=== PATIENT | male | born 1950 | race Caucasian/White ===

== ENCOUNTER 2017-07-06 11:49 | Observation (INO) | payer MEDICARE ==
[2017-07-06] MEDS ORDERED: ASPIRIN 81 MG PO STA (11:56)
[2017-07-06 12:29] LABS: Basophils # (A) 0.1 k/uL (0-0.2); Basophils % (A) 1 %; CH 32.4; CHCM 34.1; Eosinophils # (A) 0.1 k/uL (0-0.7); Eosinophils % (A) 1 %; HCT 48.4 % (39.0-53.0); HDW 2.43; HGB 16.1 gm/dL (13.0-17.5); Luc % (Auto) 1; Lymphocytes # (A) 1.1 k/uL (1.0-4.8); Lymphocytes % (A) 10 %; MCH 31.9 pg (25.0-35.0); MCHC 33.3 g/dL (31.0-37.0); MCV 95.7 fL (80.0-100.0); Mean Platelet Volume 8.1; Monocytes # (A) 0.4 k/uL (0-1.0); Monocytes % (A) 4 %; Neutrophils # (A) 8.5 k/uL (1.3-7.7); Neutrophils % (A) 83 %; RBC 5.06 m/uL (4.30-5.90); RDW 13.5 % (11.5-15.5); WBC 10.2 k/uL (3.8-10.6); WBC (Perox) 10.48
[2017-07-06 12:39] LABS: Anion Gap 10 mmol/L; Calcium 9.6 mg/dL (8.4-10.2); Carbon Dioxide 24 mmol/L (22-30); Chloride 101 mmol/L (98-107); Glucose 294 mg/dL (74-99); Non-African American GFR(MDRD) >60 (>60 ml/min/1.73 sqM); Sodium 135 mmol/L (137-145); Total Bilirubin 1.1 mg/dL (0.2-1.3); Total Protein 6.2 g/dL (6.3-8.2)
[2017-07-06 12:40] LABS: INR 1.2 (<1.2); Partial Thromboplastin Time 24.1 sec (22.0-30.0); Prothrombin Time 12.2 sec (9.0-12.0)
[2017-07-06 12:42] LABS: Blood Urea Nitrogen 13 mg/dL (9-20); Potassium 4.8 mmol/L (3.5-5.1)
[2017-07-06 12:43] LABS: ALT 51 U/L (21-72); AST 27 U/L (17-59); Alkaline Phosphatase 85 U/L (38-126); Magnesium 1.3 mg/dL (1.6-2.3)
--- NOTE | 2017-07-06 12:50 | XR ---
EXAMINATION TYPE: XR chest 2V DATE OF EXAM: 07/06/2017 COMPARISON: 04/02/2016 HISTORY: Shortness of breath TECHNIQUE: Frontal and lateral views of the chest are obtained. FINDINGS: Scattered senescent parenchymal changes noted. Hyperinflation compatible with COPD. No evidence for infiltrate. No evidence for atelectasis. Heart size is stable. Mediastinal structures are stable and grossly unremarkable. No evidence for hilar prominence. Degenerative changes dorsal spine. IMPRESSION: 1. No evidence for acute pulmonary disease.
[2017-07-06 13:13] LABS: Appearance,Urine Clear (Clear); Bilirubin,Urine Negative (Negative); Glucose,Urine (UA) 3+ (Negative); Ketones,Urine Negative (Negative); Leukocyte Esterase,Urine Negative (Negative); Nitrite,Urine Negative (Negative); PH, Urine 5.5 (5.0-8.0); Protein,Urine Negative (Negative); Specific Gravity,Urine 1.007 (1.001-1.035); UA Billing (MACRO vs. MICRO) CHEM; Urobilinogen,Urine <2.0 mg/dL (<2.0)
[2017-07-06] MEDS ORDERED: TEMAZEPAM 15 MG CAP PO PRN (13:29)
[2017-07-06] MEDS ORDERED: NALOXONE 0.4 MG/ML 1 ML VIAL IV PRN (13:29)
[2017-07-06] MEDS ORDERED: ONDANSETRON 4 MG/2 ML VIAL IVP PRN (13:29)
[2017-07-06] MEDS ORDERED: MORPHINE SULFATE 10 MG/ML SYRINGE IV PRN (13:29)
--- NOTE | 2017-07-06 13:29 | ED ---
Chest Pain HPI - General Chief Complaint: Chest Pain Stated Complaint: Chest Pain Time Seen by Provider: 07/06/17 11:51 Source: patient Mode of arrival: EMS Limitations: no limitations - History of Present Illness Initial Comments: Patient complains of chest pressure, nausea, diaphoresis. His symptoms began within the last hour. He has no vomiting. He has no constipation or diarrhea. He has no lightheadedness or dizziness. He has no pain or swelling in the extremities. He has no palpitations. He was not doing anything when the symptoms began. He took no medication for this. He denies any neck pain or stiffness. He has had no injuries. - Related Data Home Medications Medication Instructions Recorded Confirmed Atenolol 25 mg PO DAILY 04/02/16 07/06/17 Doxazosin [Cardura] 2 mg PO HS 04/02/16 07/06/17 Enalapril [Vasotec] 2.5 mg PO DAILY 04/02/16 07/06/17 Ergocalciferol (Vitamin D2) 50,000 unit PO FR 04/02/16 07/06/17 [Drisdol] Isosorbide Mononitrate ER [Imdur] 60 mg PO DAILY 04/02/16 07/06/17 Propafenone [Rythmol] 150 mg PO TID 04/02/16 07/06/17 Warfarin [Coumadin] 7.5 mg PO HS 04/02/16 07/06/17 metFORMIN HCL [Glucophage] 500 mg PO BID 04/02/16 07/06/17 rOPINIRole HCL [Requip] 1 mg PO HS 04/02/16 07/06/17 Aspirin EC [Ecotrin Low Dose] 81 mg PO DAILY 07/06/17 07/06/17 HYDROcodone/APAP 10-325MG [[place] 1 tab PO Q8H PRN 07/06/17 07/06/17 10-325] Triamcinolone 0.5% Cream [Kenalog 1 applic TOPICAL BID 07/06/17 07/06/17 0.5% Cream] Previous Rx's Medication Instructions Recorded Atorvastatin [Lipitor] 40 mg PO HS #90 tab 04/05/16 Allergies Allergy/AdvReac Type Severity Reaction Status Date / Time hydromorphone HCl AdvReac Hallucinati Verified 07/06/17 12:08 [From Dilaudid] ons Review of Systems ROS Statement: Those systems with pertinent positive or pertinent negative responses have been documented in the HPI. ROS Other: All systems not noted in ROS Statement are negative. EKG Findings - EKG Comments: EKG Findings:: Twelve-lead EKG is interpreted by me showing ventricular rate 51 bpm, normal MA interval and QRS complexes, no ST elevation or depression, interpreted by me as normal sinus rhythm. Past Medical History Past Medical History: Atrial Fibrillation, CVA/TIA, Diabetes Mellitus, Hyperlipidemia, Hypertension Additional Past Medical History / Comment(s): NIDDM History of Any Multi-Drug Resistant Organisms: None Reported Past Surgical History: No Surgical Hx Reported Additional Past Surgical History / Comment(s): 2009 normal heart cath, EGD/ colonoscopy, R lower eyelid sx, R cataract removal, R foot bunionectomy. Past Anesthesia/Blood Transfusion Reactions: No Reported Reaction Past Psychological History: No Psychological Hx Reported Smoking Status: Current every day smoker Past Alcohol Use History: Occasional Past Drug Use History: None Reported - Past Family History Mother Family Medical History: Diabetes Mellitus Additional Family Medical History / Comment(s): Mother haad heart problems. Father History Unknown: Yes General Exam Limitations: no limitations General appearance: alert, in no apparent distress Head exam: Present: atraumatic, normocephalic, normal inspection Eye exam: Present: normal appearance, PERRL, EOMI. Absent: scleral icterus, conjunctival injection, periorbital swelling ENT exam: Present: normal exam, mucous membranes moist Neck exam: Present: normal inspection. Absent: tenderness, meningismus, lymphadenopathy Respiratory exam: Present: normal lung sounds bilaterally. Absent: respiratory distress, wheezes, rales, rhonchi, stridor Cardiovascular Exam: Present: regular rate, normal rhythm, normal heart sounds. Absent: systolic murmur, diastolic murmur, rubs, gallop, clicks GI/Abdominal exam: Present: soft, normal bowel sounds. Absent: distended, tenderness, guarding, rebound, rigid Extremities exam: Present: normal inspection, full ROM, normal capillary refill. Absent: tenderness, pedal edema, joint swelling, calf tenderness Back exam: Present: normal inspection Neurological exam: Present: alert, oriented X3, CN II-XII intact Psychiatric exam: Present: normal affect, normal mood Skin exam: Present: warm, dry, intact, normal color. Absent: rash Course Vital Signs 07/06/17 07/06/17 11:52 13:16 Temperature 97.1 F L Pulse Rate 51 L 53 L Respiratory 18 18 Rate Blood Pressure 167/87 127/73 O2 Sat by Pulse 98 95 Oximetry Chest Pain MDM - MDM Patient complains of chest pain. He is hyperglycemic, but his troponin is negative. His EKG does not reveal acute ischemia. He will be admitted to the hospital. Disposition Clinical Impression: Chest pain Disposition: ADMITTED IP TO THIS HOSP Condition: Fair Instructions: Chest Pain (ED) Referrals: Andrew Walker MD [Primary Care Provider] - 1-2 days Time of Disposition: 13:29
[2017-07-06 13:51] LABS: Glucose,Whole Blood 266 mg/dL (75-99)
[2017-07-06] MEDS ORDERED: Magnesium Replacement Protocol 1 EACH MISC MISCELLANE PRN (14:36)
--- NOTE | 2017-07-06 15:04 | P.CRDCN ---
History of Present Illness History of present illness: This is a pleasant 66-year-old male who follows with Dr. Mendoza as an outpatient. 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 He underwent cardiac catheterization in 03/2016 which revealed LAD 20%, left circumflex 10-20%, RCA 10-20% disease. At that time lifestyle modifications and maximum medical therapy was recommended. He recently quit smoking 3 months ago. He was scheduled to undergo minor eye procedure today and was NPO since midnight last night and his coumadin has been on hold. He states he was up multiple times over the night urinating. Around 0700 he finally got up for the day and was sitting down when he became acute diaphoretic and developed chest pain and shortness of breath. He states he felt like his heart was in an abnormal rhythm at that time as well. He denies radiation of the pain to any extremity or neck/jaw. He does however recall having very non-specific upper jaw/gum pain last night with no specific aggravating factors. His episode of chest pain lasted approximately 1-hr. It persisted until he came to the ED. At the time of my exam he is sitting comfortably up in bed in no acute distress. Chest pain and all symptoms have resolved. EKG reveals sinus mechanism with no acute ST or T-wave abnormalities. Chest xray reveals no acute cardiopulmonary process. Cardiac enzymes negative x1, INR 1.2, potassium 4.8, magnesium 1.3, BUN 13, Cr 0.8. Blood sugars have been elevated despite being NPO. Blood pressure 136/79 heart rate 54. Most recent echocardiogram 03/[address], mild LVH, mild MR, mild TR and preserved LV systolic function with EF 55-60%. He has not had a recent stress test since his catheterization. Current cardiac medications include coumadin 7.5 mg daily, rythmol 150 mg TID, imdur 60 mg daily, enalapril 2.5 mg daily, doxazosin 2 mg daily, atorvastatin 40 mg daily, atenolol 25 mg daily and aspirin 81 mg daily. He states he is compliant with all of his medications as they are prescribed. Review of Systems CONSTITUTIONAL: Denies fever. Complains of episode of acute diaphoresis and chills. EYES: Denies blurred vision. Denies vision changes. Denies eye pain. EARS, NOSE, MOUTH & THROAT: Denies headache. Denies sore throat. Denies ear pain. CARDIOVASCULAR: Complains of one episode of chest pain lasting one hour. Denies shortness of breath. Denies orthopnea. Denies PND. Complains of one episode palpitations. RESPIRATORY: Denies cough. GASTROINTESTINAL: Denies abdominal pain. Denies diarrhea. Denies constipation. Denies nausea. Denies vomitng. MUSCULOSKELETAL: Denies myalgias. INTEGUMENTARY: Denies pruitis. Denies rash. NEUROLOGIC: Denies numbness. Denies tingling. Denies weakness. PSYCHIATRIC: Denies anxiety. Denies depression. ENDOCRINE: Denies fatigue. Denies weight change. Denies polydipsia. Denies polyurina. GENITOURINARY: Denies burning, hematuria or urgency with micturation. HEMATOLOGIC: Denies history of anemia. Denies bleeding. Past Medical History Past Medical History: Atrial Fibrillation, CVA/TIA, Diabetes Mellitus, Hyperlipidemia, Hypertension Additional Past Medical History / Comment(s): NIDDM History of Any Multi-Drug Resistant Organisms: None Reported Past Surgical History: No Surgical Hx Reported Additional Past Surgical History / Comment(s): 2008 normal heart cath, EGD/ colonoscopy, R lower eyelid sx, R cataract removal, R foot bunionectomy. Past Anesthesia/Blood Transfusion Reactions: No Reported Reaction Past Psychological History: No Psychological Hx Reported Smoking Status: Current every day smoker Past Alcohol Use History: Occasional Past Drug Use History: None Reported - Past Family History Mother Family Medical History: Diabetes Mellitus Additional Family Medical History / Comment(s): Mother haad heart problems. Father History Unknown: Yes Medications and Allergies Home Medications Medication Instructions Recorded Confirmed Type Atenolol 25 mg PO DAILY 04/02/16 07/06/17 History Doxazosin [Cardura] 2 mg PO HS 04/02/16 07/06/17 History Enalapril [Vasotec] 2.5 mg PO DAILY 04/02/16 07/06/17 History Ergocalciferol (Vitamin D2) 50,000 unit PO FR 04/02/16 07/06/17 History [Drisdol] Isosorbide Mononitrate ER [Imdur] 60 mg PO DAILY 04/02/16 07/06/17 History Propafenone [Rythmol] 150 mg PO TID 04/02/16 07/06/17 History Warfarin [Coumadin] 7.5 mg PO HS 04/02/16 07/06/17 History metFORMIN HCL [Glucophage] 500 mg PO BID 04/02/16 07/06/17 History rOPINIRole HCL [Requip] 1 mg PO HS 04/02/16 07/06/17 History Atorvastatin [Lipitor] 40 mg PO HS #90 tab 04/05/16 07/06/17 Rx Aspirin EC [Ecotrin Low Dose] 81 mg PO DAILY 07/06/17 07/06/17 History HYDROcodone/APAP 10-325MG [[place] 1 tab PO Q8H PRN 07/06/17 07/06/17 History 10-325] Omeprazole Magnesium [Prilosec OTC] 20 mg PO DAILY 07/06/17 07/06/17 History Triamcinolone 0.5% Cream [Kenalog 1 applic TOPICAL BID 07/06/17 07/06/17 History 0.5% Cream] Allergies Allergy/AdvReac Type Severity Reaction Status Date / Time hydromorphone HCl AdvReac Hallucinati Verified 07/06/17 12:08 [From Dilaudid] ons Physical Exam Vitals: Vital Signs Temp Pulse Pulse Resp BP BP Pulse Ox 07/06/17 14:32 97.3 F L 54 L 18 136/79 95 07/06/17 13:47 98 F 55 L 18 119/72 96 07/06/17 13:16 53 L 18 127/73 95 07/06/17 11:52 97.1 F L 51 L 18 167/87 98 Intake and Output 07/05/17 07/06/17 07/06/17 22:59 06:59 14:59 Other: Weight 101.8 kg Patient Weight 07/07/17 06:59 Weight 101.8 kg GENERAL: This is a 66-year-old pleasant male in no apparent distress at the time of my examination. HEENT: Head is atraumatic, normocephalic. Pupils are equal, round. Sclerae anicteric. Conjunctivae are clear. Mucous membranes of the mouth are moist. Neck is supple. There is no jugular venous distention. No carotid bruit is heard. LUNGS: Clear to auscultation no wheezes, rales or rhonchi. No chest wall tenderness is noted on palpation or with deep breathing. HEART: Regular rate and rhythm with systolic ejection murmur at the base, no rubs or gallops. S1 and S2 heard. ABDOMEN: Soft, nontender. Bowel sounds are heard. No organomegaly noted. EXTREMITIES: 2+ peripheral pulses with trace evidence of pitting peripheral edema right greater than left and no calf tenderness noted. NEUROLOGIC: Patient is awake, alert and oriented x3. Results 07/06/17 12:10 07/06/17 12:10 Cardiac Enzymes 07/06/17 07/06/17 07/06/17 Range/Units 12:10 12:10 12:10 WBC 10.2 (3.8-10.6) k/uL RBC 5.06 (4.30-5.90) m/uL Hgb 16.1 (13.0-17.5) gm/dL Hct 48.4 (39.0-53.0) % MCV 95.7 (80.0-100.0) fL MCH 31.9 (25.0-35.0) pg MCHC 33.3 (31.0-37.0) g/dL RDW 13.5 (11.5-15.5) % Plt Count 165 (150-450) k/uL Neutrophils % 83 % Lymphocytes % 10 % Monocytes % 4 % Eosinophils % 1 % Basophils % 1 % Neutrophils # 8.5 H (1.3-7.7) k/uL Lymphocytes # 1.1 (1.0-4.8) k/uL Monocytes # 0.4 (0-1.0) k/uL Eosinophils # 0.1 (0-0.7) k/uL Basophils # 0.1 (0-0.2) k/uL PT 12.2 H (9.0-12.0) sec INR 1.2 H (<1.2) APTT 24.1 (22.0-30.0) sec Sodium 135 L (137-145) mmol/L Potassium 4.8 (3.5-5.1) mmol/L Chloride 101 (98-107) mmol/L Carbon Dioxide 24 (22-30) mmol/L Anion Gap 10 mmol/L BUN 13 (9-20) mg/dL Creatinine 0.80 (0.66-1.25) mg/dL Est GFR (MDRD) Af Amer >60 (>60 ml/min/1.73 sqM) Est GFR (MDRD) Non-Af >60 (>60 ml/min/1.73 sqM) Glucose 294 H (74-99) mg/dL POC Glucose (mg/dL) (75-99) mg/dL POC Glu Devulcanizer Loader ID Calcium 9.6 (8.4-10.2) mg/dL Magnesium 1.3 L (1.6-2.3) mg/dL Total Bilirubin 1.1 (0.2-1.3) mg/dL AST 27 (17-59) U/L ALT 51 (21-72) U/L Alkaline Phosphatase 85 (38-126) U/L Troponin I (0.000-0.034) ng/mL NT-Pro-B Natriuret Pep pg/mL Total Protein 6.2 L (6.3-8.2) g/dL Albumin 3.8 (3.5-5.0) g/dL Lipase 259 (23-300) U/L Urine Color Urine Appearance (Clear) Urine pH (5.0-8.0) Ur Specific [place] (1.001-1.035) Urine Protein (Negative) Urine Glucose (UA) (Negative) Urine Ketones (Negative) Urine Blood (Negative) Urine Nitrite (Negative) Urine Bilirubin (Negative) Urine Urobilinogen (<2.0) mg/dL Ur Leukocyte Esterase (Negative) 07/06/17 07/06/17 07/06/17 Range/Units 12:10 12:10 12:55 WBC (3.8-10.6) k/uL RBC (4.30-5.90) m/uL Hgb (13.0-17.5) gm/dL Hct (39.0-53.0) % MCV (80.0-100.0) fL MCH (25.0-35.0) pg MCHC (31.0-37.0) g/dL RDW (11.5-15.5) % Plt Count (150-450) k/uL Neutrophils % % Lymphocytes % % Monocytes % % Eosinophils % % Basophils % % Neutrophils # (1.3-7.7) k/uL Lymphocytes # (1.0-4.8) k/uL Monocytes # (0-1.0) k/uL Eosinophils # (0-0.7) k/uL Basophils # (0-0.2) k/uL PT (9.0-12.0) sec INR (<1.2) APTT (22.0-30.0) sec Sodium (137-145) mmol/L Potassium (3.5-5.1) mmol/L Chloride (98-107) mmol/L Carbon Dioxide (22-30) mmol/L Anion Gap mmol/L BUN (9-20) mg/dL Creatinine (0.66-1.25) mg/dL Est GFR (MDRD) Af Amer (>60 ml/min/1.73 sqM) Est GFR (MDRD) Non-Af (>60 ml/min/1.73 sqM) Glucose (74-99) mg/dL POC Glucose (mg/dL) (75-99) mg/dL POC Glu Devulcanizer Loader ID Calcium (8.4-10.2) mg/dL Magnesium (1.6-2.3) mg/dL Total Bilirubin (0.2-1.3) mg/dL AST (17-59) U/L ALT (21-72) U/L Alkaline Phosphatase (38-126) U/L Troponin I <0.012 (0.000-0.034) ng/mL NT-Pro-B Natriuret Pep 762 pg/mL Total Protein (6.3-8.2) g/dL Albumin (3.5-5.0) g/dL Lipase (23-300) U/L Urine Color Yellow Urine Appearance Clear (Clear) Urine pH 5.5 (5.0-8.0) Ur Specific [place] 1.007 (1.001-1.035) Urine Protein Negative (Negative) Urine Glucose (UA) 3+ H (Negative) Urine Ketones Negative (Negative) Urine Blood Negative (Negative) Urine Nitrite Negative (Negative) Urine Bilirubin Negative (Negative) Urine Urobilinogen <2.0 (<2.0) mg/dL Ur Leukocyte Esterase Negative (Negative) 07/06/17 Range/Units 13:46 WBC (3.8-10.6) k/uL RBC (4.30-5.90) m/uL Hgb (13.0-17.5) gm/dL Hct (39.0-53.0) % MCV (80.0-100.0) fL MCH (25.0-35.0) pg MCHC (31.0-37.0) g/dL RDW (11.5-15.5) % Plt Count (150-450) k/uL Neutrophils % % Lymphocytes % % Monocytes % % Eosinophils % % Basophils % % Neutrophils # (1.3-7.7) k/uL Lymphocytes # (1.0-4.8) k/uL Monocytes # (0-1.0) k/uL Eosinophils # (0-0.7) k/uL Basophils # (0-0.2) k/uL PT (9.0-12.0) sec INR (<1.2) APTT (22.0-30.0) sec Sodium (137-145) mmol/L Potassium (3.5-5.1) mmol/L Chloride (98-107) mmol/L Carbon Dioxide (22-30) mmol/L Anion Gap mmol/L BUN (9-20) mg/dL Creatinine (0.66-1.25) mg/dL Est GFR (MDRD) Af Amer (>60 ml/min/1.73 sqM) Est GFR (MDRD) Non-Af (>60 ml/min/1.73 sqM) Glucose (74-99) mg/dL POC Glucose (mg/dL) 266 H (75-99) mg/dL POC Glu Devulcanizer Loader ID John Ramos Calcium (8.4-10.2) mg/dL Magnesium (1.6-2.3) mg/dL Total Bilirubin (0.2-1.3) mg/dL AST (17-59) U/L ALT (21-72) U/L Alkaline Phosphatase (38-126) U/L Troponin I (0.000-0.034) ng/mL NT-Pro-B Natriuret Pep pg/mL Total Protein (6.3-8.2) g/dL Albumin (3.5-5.0) g/dL Lipase (23-300) U/L Urine Color Urine Appearance (Clear) Urine pH (5.0-8.0) Ur Specific [place] (1.001-1.035) Urine Protein (Negative) Urine Glucose (UA) (Negative) Urine Ketones (Negative) Urine Blood (Negative) Urine Nitrite (Negative) Urine Bilirubin (Negative) Urine Urobilinogen (<2.0) mg/dL Ur Leukocyte Esterase (Negative) Coagulation 07/06/17 Range/Units 12:10 PT 12.2 H (9.0-12.0) sec APTT 24.1 (22.0-30.0) sec CBC 07/06/17 Range/Units 12:10 WBC 10.2 (3.8-10.6) k/uL RBC 5.06 (4.30-5.90) m/uL Hgb 16.1 (13.0-17.5) gm/dL Hct 48.4 (39.0-53.0) % Plt Count 165 (150-450) k/uL Comprehensive Metabolic Panel 07/06/17 Range/Units 12:10 Sodium 135 L (137-145) mmol/L Potassium 4.8 (3.5-5.1) mmol/L Chloride 101 (98-107) mmol/L Carbon Dioxide 24 (22-30) mmol/L BUN 13 (9-20) mg/dL Creatinine 0.80 (0.66-1.25) mg/dL Glucose 294 H (74-99) mg/dL Calcium 9.6 (8.4-10.2) mg/dL AST 27 (17-59) U/L ALT 51 (21-72) U/L Alkaline Phosphatase 85 (38-126) U/L Total Protein 6.2 L (6.3-8.2) g/dL Albumin 3.8 (3.5-5.0) g/dL Current Medications Generic Name Dose Route Start Last Admin Trade Name Freq PRN Reason Stop Dose Admin Hydrocodone Bitart/Acetaminophen 1 each 07/06/17 13:31 [place] 10 PO Q8H PRN Pain Aspirin 81 mg 07/07/17 09:00 Aspirin PO DAILY [facility] Atenolol 25 mg 07/07/17 09:00 Tenormin PO DAILY [facility] Atorvastatin Calcium 40 mg 07/06/17 21:00 Lipitor PO HS RODRIGUE Doxazosin Mesylate 2 mg 07/06/17 21:00 Cardura PO HS RODRIGUE Famotidine 20 mg 07/06/17 21:00 Pepcid PO BID RODRIGUE Magnesium Sulfate/Dextrose 1 100 mls @ 100 mls/hr 07/06/17 14:45 gm/ IV Solution IVPB 07/06/17 17:44 Q1H [facility]ODRIGUE Isosorbide Mononitrate 60 mg 07/07/17 09:00 Imdur PO DAILY RODR[facility]UE Lisinopril 5 mg 07/07/17 09:00 Zestril PO DAILY RODRIG[facility] Metformin HCl 500 mg 07/06/17 21:00 Glucophage PO BID RODRIGUE Miscellaneous Information 1 each 07/06/17 14:36 Magnesium Per Protocol MISCELLANE DAILY PRN Per Protocol Protocol Morphine Sulfate 4 mg 07/06/17 13:29 Morphine Sulfate (Inj) IV Q4HR PRN Severe Pain Naloxone HCl 0.2 mg 07/06/17 13:29 Narcan IV Q2M PRN Opioid Reversal Ondansetron HCl 4 mg 07/06/17 13:29 Zofran IVP Q8HR PRN Nausea And Vomiting Propafenone HCl 150 mg 07/06/17 16:00 Rythmol PO TID RODRIGUE Ropinirole HCl 1 mg 07/06/17 21:00 Requip PO HS RODRIGUE Temazepam 15 mg 07/06/17 13:29 Restoril PO HS PRN Insomnia Warfarin Sodium 7.5 mg 07/06/17 21:00 Coumadin PO HS RODRIGUE Intake and Output 07/05/17 07/06/17 07/06/17 22:59 06:59 14:59 Other: Weight 101.8 kg Patient Weight 07/07/17 06:59 Weight 101.8 kg 07/06/17 12:10 07/06/17 12:10 Assessment and Plan Assessment: ASSESSMENT 1. Chest pain, atypical 2. Essential hypertension 3. History of paroxysmal atrial fibrillation on long-term anticoagulation 4. Dyslipidemia 5. History of mild triple vessel CAD 6. Former smoker, quit 3 months ago 7. Diabetes mellitus PLAN Obtain 2D echocardiogram and doppler study to evaluate cardiac structure and function; Obtain serial cardiac enzymes along with repeat EKG to rule out acute coronary event; Replace magnesium per protocol and repeat level in the morning; Check lipid panel, INR and thyroid function; Continue cardiac monitoring to assess for arrhythmia; NPO after midnight to evaluate for possible stress testing in the am. Thank you for this consultation, we will continue to follow with this patient. Nurse Practitioner note has been reviewed, I agree with a documented findings and plan of care. Patient was seen and examined. Time with Patient: Greater than 30
[2017-07-06] MEDS: MAGNESIUM SULFATE-D5W PMX 1 GM in DEXTROSE/WATER 1 100ML.BAG IVPB SCH ×3 (15:45→18:01)
[2017-07-06] MEDS: PROPAFENONE 150 MG TAB PO SCH ×2 (16:45→20:51)
[2017-07-06 16:59] LABS: Glucose,Whole Blood 264 mg/dL (75-99)
[2017-07-06 20:47] LABS: Glucose,Whole Blood 217 mg/dL (75-99)
[2017-07-06] MEDS: INSULIN LISPRO (humaLOG) 300 UNIT/3 ML VIAL SQ SCH (20:50)
[2017-07-06] MEDS: FAMOTIDINE 20 MG TAB PO SCH (20:51)
[2017-07-06] MEDS ORDERED: metFORMIN 500 MG TAB PO SCH (21:00)
[2017-07-06] MEDS ORDERED: ATORVASTATIN 40 MG TAB PO SCH (21:00)
[2017-07-06] MEDS ORDERED: WARFARIN 7.5 MG TAB PO SCH (21:00)
[2017-07-06] MEDS ORDERED: DOXAZOSIN 2 MG TAB PO SCH (21:00)
[2017-07-06] MEDS: HYDROcodone/APAP 10-325MG 1 EACH TAB PO PRN (21:06)
[2017-07-07 05:53] LABS: INR 1.2 (<1.2); Prothrombin Time 11.9 sec (9.0-12.0)
[2017-07-07 06:03] LABS: Magnesium 1.9 mg/dL (1.6-2.3)
[2017-07-07 06:48] LABS: Glucose,Whole Blood 194 mg/dL (75-99)
[2017-07-07] MEDS: INSULIN LISPRO (humaLOG) 300 UNIT/3 ML VIAL SQ SCH ×2 (08:04→12:21)
[2017-07-07 08:06] VITALS: RESP 18
--- NOTE | 2017-07-07 08:45 | ECHOF ---
Referral Reason:chest pain MEASUREMENTS -------- HEIGHT: 157.5 cm WEIGHT: 101.6 kg BP: 130/50 RVIDd: 2.5 cm (< 3.3) IVSd: 1.2 cm (0.6 - 1.1) LVIDd: 4.8 cm (3.9 - 5.3) LVPWd: 0.9 cm (0.6 - 1.1) IVSs: 1.5 cm LVIDs: 4.2 cm LVPWs: 0.9 cm LA Diam: 3.6 cm (2.7 - 3.8) LAESV Index (A-L): 27.17 ml/m Ao Diam: 3.0 cm (2.0 - 3.7) AV Cusp: 1.7 cm (1.5 - 2.6) LA Diam: 3.6 cm (2.7 - 3.8) MV EXCURSION: 15.271 mm (> 18.000) MV EF SLOPE: 39 mm/s (70 - 150) EPSS: 0.7 cm MV E Otis: 0.44 m/s MV DecT: 224 ms MV A Otis: 0.60 m/s MV E/A Ratio: 0.74 RAP: 5.00 mmHg RVSP: 11.93 mmHg FINDINGS -------- Sinus rhythm. This was a technically adequate study. The left ventricular size is normal. There is mild concentric left ventricular hypertrophy. Overall left ventricular systolic function is normal with, an EF between 55 - 60 %. The right ventricle is normal in size. Normal LA size by volume 22+/-6 ml/m2. The right atrial size is normal. The aortic valve is trileaflet, and appears structurally normal. No aortic stenosis or regurgitation. Mild mitral regurgitation is present. Mild tricuspid regurgitation present. There is no evidence of pulmonary hypertension. The right ventricular systolic pressure, as measured by Doppler, is 11.93mmHg. There is no pulmonic regurgitation present. The aortic root size is normal. There is no pericardial effusion. CONCLUSIONS -------- 1. The left ventricular size is normal. 2. The aortic root size is normal. 3. There is no pericardial effusion. 4. There is mild concentric left ventricular hypertrophy. 5. Overall left ventricular systolic function is normal with, an EF between 55 - 60 %. 6. The aortic valve is trileaflet, and appears structurally normal. No aortic stenosis or regurgitation. 7. Mild mitral regurgitation is present. 8. Mild tricuspid regurgitation present. 9. There is no evidence of pulmonary hypertension. 10. The right ventricular systolic pressure, as measured by Doppler, is 11.93mmHg. 11. There is no pulmonic regurgitation present. [employer] MANAGER: Lety Tipton RDCS
[2017-07-07] MEDS ORDERED: ISOSORBIDE MONONITRATE ER 60 MG TAB.ER.24H PO SCH (09:00)
[2017-07-07] MEDS ORDERED: LISINOPRIL 5 MG TAB PO SCH (09:00)
[2017-07-07] MEDS ORDERED: ATENOLOL 25 MG TAB PO SCH (09:00)
[2017-07-07] MEDS ORDERED: ASPIRIN 81 MG PO SCH (09:00)
[2017-07-07] MEDS: HYDROcodone/APAP 10-325MG 1 EACH TAB PO PRN (10:42)
[2017-07-07] MEDS: PROPAFENONE 150 MG TAB PO SCH (10:44)
[2017-07-07] MEDS: FAMOTIDINE 20 MG TAB PO SCH (10:44)
--- NOTE | 2017-07-07 10:47 | P.PN ---
Subjective Progress Note Date: 07/07/17 This is a pleasant 66-year-old male who follows with Dr. Mendoza as an outpatient. Past medical history significant for paroxysmal atrial fibrillation on custodial anticoagulation with coumadin, hypertension, diabetes mellitus, dysplipidemia and chronic CAD. He underwent cardiac catheterization in 03/2016 which revealed LAD 20%, left circumflex 10-20%, RCA 10-20% disease. At that time lifestyle modifications and maximum medical therapy was recommended. He recently quit smoking 3 months ago. He was scheduled to undergo minor eye procedure today and was NPO since midnight last night and his coumadin has been on hold. He states he was up multiple times over the night urinating. Around 0700 he finally got up for the day and was sitting down when he became acute diaphoretic and developed chest pain and shortness of breath. He states he felt like his heart was in an abnormal rhythm at that time as well. He denies radiation of the pain to any extremity or neck/jaw. He does however recall having very non-specific upper jaw/gum pain last night with no specific aggravating factors. His episode of chest pain lasted approximately 1-hr. It persisted until he came to the ED. At the time of my exam he is sitting comfortably up in bed in no acute distress. Chest pain and all symptoms have resolved. EKG reveals sinus mechanism with no acute ST or T-wave abnormalities. Chest xray reveals no acute cardiopulmonary process. Cardiac enzymes negative x1, INR 1.2, potassium 4.8, magnesium 1.3, BUN 13, Cr 0.8. Blood sugars have been elevated despite being NPO. Blood pressure 136/79 heart rate 54. Most recent echocardiogram 03/2016 revealed mild AR, mild LVH, mild MR, mild TR and preserved LV systolic function with EF 55-60%. He has not had a recent stress test since his catheterization. Current cardiac medications include coumadin 7.5 mg daily, rythmol 150 mg TID, imdur 60 mg daily, enalapril 2.5 mg daily, doxazosin 2 mg daily, atorvastatin 40 mg daily, atenolol 25 mg daily and aspirin 81 mg daily. He states he is compliant with all of his medications as they are prescribed. 07/07/2017 Mr Vázquez is seen today in follow-up. He is seen resting comfortably in bed in no acute distress. He denies any further episodes of chest pain or shortness of breath. He states his lower back is irritating but this is chronic. He states he has been up urinating again frequently all night last night. Cardiac enzymes have come back negative x3. Magnesium level 1.9, INR 1.2. Objective - Vital Signs Vital signs: Vital Signs Temp 98.4 F 07/07/17 08:00 Pulse 63 07/07/17 08:00 Resp 18 07/07/17 08:00 BP 136/86 07/07/17 08:00 Pulse Ox 95 07/07/17 08:00 Intake & Output 07/06/17 07/07/17 07/07/17 18:59 06:59 18:59 Intake Total 240 Balance 240 Weight 101.8 kg Intake: Oral 240 Other: Voiding Method Toilet Toilet Toilet # Voids 1 - Exam GENERAL: Well-appearing, well-nourished and in no acute distress. NECK: Supple without JVD or thyromegaly. LUNGS: Breath sounds clear to auscultation bilaterally. Respiration equal and unlabored. No wheezes, rales or rhonchi. HEART: Regular rate and rhythm with systolic ejection murmur at the base, no rubs or gallops. S1 and S2 heard. EXTREMITIES: Normal range of motion, no edema. No clubbing or cyanosis. Peripheral pulses intact and strong. - Labs CBC & Chem 7: 07/06/17 12:10 07/06/17 12:10 Labs: Abnormal Lab Results - Last 24 Hours (Table) 07/06/17 07/06/17 07/06/17 Range/Units 12:10 12:10 12:10 Neutrophils # 8.5 H (1.3-7.7) k/uL PT 12.2 H (9.0-12.0) sec INR 1.2 H (<1.2) Sodium 135 L (137-145) mmol/L Glucose 294 H (74-99) mg/dL POC Glucose (mg/dL) (75-99) mg/dL Hemoglobin A1c (4.0-6.0) % Magnesium 1.3 L (1.6-2.3) mg/dL Total Protein 6.2 L (6.3-8.2) g/dL HDL Cholesterol (40-60) mg/dL Urine Glucose (UA) (Negative) 07/06/17 07/06/17 07/06/17 Range/Units 12:55 13:46 16:56 Neutrophils # (1.3-7.7) k/uL PT (9.0-12.0) sec INR (<1.2) Sodium (137-145) mmol/L Glucose (74-99) mg/dL POC Glucose (mg/dL) 266 H 264 H (75-99) mg/dL Hemoglobin A1c (4.0-6.0) % Magnesium (1.6-2.3) mg/dL Total Protein (6.3-8.2) g/dL HDL Cholesterol (40-60) mg/dL Urine Glucose (UA) 3+ H (Negative) 07/06/17 07/06/17 07/07/17 Range/Units 18:29 20:44 05:34 Neutrophils # (1.3-7.7) k/uL PT (9.0-12.0) sec INR (<1.2) Sodium (137-145) mmol/L Glucose (74-99) mg/dL POC Glucose (mg/dL) 217 H (75-99) mg/dL Hemoglobin A1c 7.9 H (4.0-6.0) % Magnesium (1.6-2.3) mg/dL Total Protein (6.3-8.2) g/dL HDL Cholesterol 34 L (40-60) mg/dL Urine Glucose (UA) (Negative) 07/07/17 07/07/17 Range/Units 05:34 06:37 Neutrophils # (1.3-7.7) k/uL PT (9.0-12.0) sec INR 1.2 H (<1.2) Sodium (137-145) mmol/L Glucose (74-99) mg/dL POC Glucose (mg/dL) 194 H (75-99) mg/dL Hemoglobin A1c (4.0-6.0) % Magnesium (1.6-2.3) mg/dL Total Protein (6.3-8.2) g/dL HDL Cholesterol (40-60) mg/dL Urine Glucose (UA) (Negative) Assessment and Plan Assessment: ASSESSMENT 1. Chest pain, atypical 2. Essential hypertension 3. History of paroxysmal atrial fibrillation on long-term anticoagulation 4. Dyslipidemia 5. History of mild triple vessel CAD 6. Former smoker, quit 3 months ago 7. Diabetes mellitus 8. Sub-therapeutic INR secondary to holding for eye surgery PLAN From cardiac perspective Mr Vázquez is stable for discharge home with minimal disease noted last year it is unlikely to have had significant increase in 1- year. He should follow up with Dr. Mendoza in 2 weeks. Risks vs benefits of stopping anticoagulation have been discussed with the patient and his risk of stroke has been verbalized. Nurse Practitioner note has been reviewed, I agree with a documented findings and plan of care. Patient was seen and examined.
[2017-07-07 12:00] VITALS: BP 143/87; PULSE 57; TEMP 98
[2017-07-07 12:13] LABS: Glucose,Whole Blood 378 mg/dL (75-99)
--- NOTE | 2017-07-07 12:54 | P.HPIM ---
History of Present Illness H&P Date: 07/07/17 Chief Complaint: Chest pain This is a 66-year-old male with a known history of atrial fibrillation on Coumadin, hypertension, diabetes mellitus, hyperlipidemia and coronary artery disease. He did quit smoking about 2 months ago. Patient reports that he had not been feeling well yesterday. He reports being very sweaty having some episodes of chest discomfort. He came into Dr. Walker's office for evaluation of is recommended to go to the hospital and be admitted. Patient also reports that pain the chest pain was more in the left side of his chest radiating up into the jaw. Troponins were negative 3 sets. EKG had shown sinus bradycardia with a heart rate of 51 and a left anterior fascicular block. Chest x-ray was negative. Echo completed showing an EF of 55-60%. Patient was admitted to the observation floor. Cardiology was consulted. There is discussion about a possible stress test. His last heart catheterization was in March 2016 with evidence of some coronary disease but had recommended lifestyle modifications and maximum medical therapy. Coumadin has recently been on hold for an eye surgery. Patient reports that he is feeling better. He has been up and ambulating. Cardiology has now cleared him for discharge. AR was ruled out. Patient denies any fever, chills, sweats, cough, bowel movement changes or urinary symptoms. He did not have any vomiting but he had been having some nausea. Review of Systems Please refer to HPI otherwise unremarkable Past Medical History Past Medical History: Atrial Fibrillation, CVA/TIA, Diabetes Mellitus, Hyperlipidemia, Hypertension Additional Past Medical History / Comment(s): NIDDM History of Any Multi-Drug Resistant Organisms: None Reported Past Surgical History: No Surgical Hx Reported Additional Past Surgical History / Comment(s): 2008 normal heart cath, EGD/ colonoscopy, R lower eyelid sx, R cataract removal, R foot bunionectomy. Past Anesthesia/Blood Transfusion Reactions: No Reported Reaction Past Psychological History: No Psychological Hx Reported Smoking Status: Current every day smoker Past Alcohol Use History: Occasional Past Drug Use History: None Reported - Past Family History Mother Family Medical History: Diabetes Mellitus Additional Family Medical History / Comment(s): Mother haad heart problems. Father History Unknown: Yes Additional Family Medical History / Comment(s): Pt does not know his father's health hx. Medications and Allergies Home Medications Medication Instructions Recorded Confirmed Type Atenolol 25 mg PO DAILY 04/02/16 07/06/17 History Doxazosin [Cardura] 2 mg PO HS 04/02/16 07/06/17 History Enalapril [Vasotec] 2.5 mg PO DAILY 04/02/16 07/06/17 History Ergocalciferol (Vitamin D2) 50,000 unit PO FR 04/02/16 07/06/17 History [Drisdol] Isosorbide Mononitrate ER [Imdur] 60 mg PO DAILY 04/02/16 07/06/17 History Propafenone [Rythmol] 150 mg PO TID 04/02/16 07/06/17 History Warfarin [Coumadin] 7.5 mg PO HS 04/02/16 07/06/17 History metFORMIN HCL [Glucophage] 500 mg PO BID 04/02/16 07/06/17 History rOPINIRole HCL [Requip] 1 mg PO HS 04/02/16 07/06/17 History Atorvastatin [Lipitor] 40 mg PO HS #90 tab 04/05/16 07/06/17 Rx Aspirin EC [Ecotrin Low Dose] 81 mg PO DAILY 07/06/17 07/06/17 History HYDROcodone/APAP 10-325MG [[place] 1 tab PO Q8H PRN 07/06/17 07/06/17 History 10-325] Omeprazole Magnesium [Prilosec OTC] 20 mg PO DAILY 07/06/17 07/06/17 History Triamcinolone 0.5% Cream [Kenalog 1 applic TOPICAL BID 07/06/17 07/06/17 History 0.5% Cream] Allergies Allergy/AdvReac Type Severity Reaction Status Date / Time hydromorphone HCl AdvReac Hallucinati Verified 07/06/17 12:08 [From Dilaudid] ons Physical Exam Vitals: Vital Signs Temp Pulse Pulse Resp BP BP Pulse Ox 07/07/17 11:58 98 F 57 L 18 143/87 95 07/07/17 08:00 98.4 F 63 18 136/86 95 07/07/17 04:00 58 L 16 07/07/17 03:44 97.9 F 58 L 16 126/63 94 L 07/07/17 00:00 16 07/06/17 23:46 97.9 F 54 L 16 123/70 93 L 07/06/17 20:00 16 07/06/17 19:35 98.1 F 55 L 16 138/81 93 L 07/06/17 14:32 97.3 F L 54 L 18 136/79 95 07/06/17 13:47 98 F 55 L 18 119/72 96 07/06/17 13:16 53 L 18 127/73 95 Intake and Output 07/06/17 07/07/17 07/07/17 22:59 06:59 14:59 Intake Total 240 Balance 240 Intake: Oral 240 Other: Voiding Method Toilet Toilet Toilet # Voids 1 1 Head normocephalic Neck supple Lungs clear to auscultation bilaterally no wheezing or crackles Heart regular rate and rhythm S1-S2, no rub or gallop Abdomen is soft nontender nondistended positive bowel sounds no hepatosplenomegaly Extremities no edema Neuro alert and orientated to 3 Results CBC & Chem 7: 07/06/17 12:10 07/06/17 12:10 Labs: Abnormal Lab Results - Last 24 Hours (Table) 07/06/17 07/06/17 07/06/17 Range/Units 12:55 13:46 16:56 INR (<1.2) POC Glucose (mg/dL) 266 H 264 H (75-99) mg/dL Hemoglobin A1c (4.0-6.0) % HDL Cholesterol (40-60) mg/dL Urine Glucose (UA) 3+ H (Negative) 07/06/17 07/06/17 07/07/17 Range/Units 18:29 20:44 05:34 INR (<1.2) POC Glucose (mg/dL) 217 H (75-99) mg/dL Hemoglobin A1c 7.9 H (4.0-6.0) % HDL Cholesterol 34 L (40-60) mg/dL Urine Glucose (UA) (Negative) 07/07/17 07/07/17 07/07/17 Range/Units 05:34 06:37 12:03 INR 1.2 H (<1.2) POC Glucose (mg/dL) 194 H 378 H (75-99) mg/dL Hemoglobin A1c (4.0-6.0) % HDL Cholesterol (40-60) mg/dL Urine Glucose (UA) (Negative) Thrombosis Risk Factor Assmnt - Choose All That Apply Any of the Below Risk Factors Present?: Yes Each Factor Represents 1 point: Obesity (BMI >25) Other Risk Factors: Yes Each Risk Factor Represents 2 Points: Age 61-74 years Other congenital or acquired thrombophilia - If yes, enter type in comment: No Thrombosis Risk Factor Assessment Total Risk Factor Score: 3 Thrombosis Risk Factor Assessment Level: Moderate Risk Assessment and Plan Assessment: 1. Atypical chest pain: AR ruled out. Troponins were negative 3 sets EKG so showed sinus bradycardia heart rate of 51, chest x-ray negative, echo shows an EF of 55-60%. Last heart catheterization was in March 2016 recommending medical management. Patient has been seen and evaluated by cardiology and they've cleared him for discharge 2. Diabetes mellitus: A1c is 7.9. Continue sliding scale coverage while he is an year. Patient will resume his metformin for home 3. Hyperlipidemia continue Lipitor 4. Essential hypertension 5. Coronary artery disease 6. Paroxysmal atrial fibrillation on Coumadin at home 7. Coumadin had been on hold for an eye procedure. Coumadin restarted last night. Time with Patient: Greater than 30 (Greater than 50% of the total time spent in counseling and coordination of care.I performed an examination of the patient and discussed their management with the physician General Medical Practitioner. I have reviewed the Physician General Medical Practitioner's notes and agree with the documented findings and plan of care)
--- NOTE | 2017-07-07 14:21 | P.DS ---
Providers Date of admission: 07/06/17 13:29 Expected date of discharge: 07/07/17 Attending physician: Andrew Walker Consults: 07/06/17 13:30 Consult Physician Routine Consulting Provider: Skylar Toro Consult Reason/Comments: chest pain Do you want consulting provider notified?: Yes Primary care physician: Andrew Walker [facility] Course: Discharge diagnosis 1. Atypical chest pain: CO ruled out. Troponins were negative 3 sets EKG so showed sinus bradycardia heart rate of 51, chest x-ray negative, echo shows an EF of 55-60%. Last heart catheterization was in March 2016 recommending medical management. Patient has been seen and evaluated by cardiology and they've cleared him for discharge 2. Diabetes mellitus: A1c is 7.9. Continue sliding scale coverage while he is an year. Patient will resume his metformin for home 3. Hyperlipidemia continue Lipitor 4. Essential hypertension 5. Coronary artery disease 6. Paroxysmal atrial fibrillation on Coumadin at home 7. Coumadin had been on hold for an eye procedure. Coumadin restarted last night. Hospital course This is a 66-year-old male with a known history of atrial fibrillation on Coumadin, hypertension, diabetes mellitus, hyperlipidemia and coronary artery disease. He did quit smoking about 2 months ago. Patient reports that he had not been feeling well yesterday. He reports being very sweaty having some episodes of chest discomfort. He came into Dr. Walker's office for evaluation of is recommended to go to the hospital and be admitted. Patient also reports that pain the chest pain was more in the left side of his chest radiating up into the jaw. Troponins were negative 3 sets. EKG had shown sinus bradycardia with a heart rate of 51 and a left anterior fascicular block. Chest x-ray was negative. Echo completed showing an EF of 55-60%. Patient was admitted to the observation floor. Cardiology was consulted. There is discussion about a possible stress test. His last heart catheterization was in March 2016 with evidence of some coronary disease but had recommended lifestyle modifications and maximum medical therapy. Coumadin has recently been on hold for an eye surgery. Patient reports that he is feeling better. He has been up and ambulating. Cardiology has now cleared him for discharge. CO was ruled out. Patient denies any fever, chills, sweats, cough, bowel movement changes or urinary symptoms. He did not have any vomiting but he had been having some nausea. Patient was seen evaluated by cardiology. CO was ruled out. Patient had recent heart catheterization about a year ago and is unlikely to have had significant increase in 1 year. He should follow Dr. Mendoza in 2 weeks. Cardiology did discuss the risks and benefits of stopping anticoagulation. Coumadin was restarted for patient. Initially was held due to an eye procedure. Patient is receiving Coumadin 7.5 mg daily. Patient has had no further episodes of chest pain. He's been cleared by cardiology for discharge. Patient is medically stable for discharge. Please refer to chart for any further details. Patient Condition at Discharge: Stable Plan - Discharge Summary Discharge Rx Participant: No New Discharge Prescriptions: Continue metFORMIN HCL [Glucophage] 500 mg PO BID Ergocalciferol (Vitamin D2) [Drisdol] 50,000 unit PO FR Propafenone [Rythmol] 150 mg PO TID Isosorbide Mononitrate ER [Imdur] 60 mg PO DAILY Atenolol 25 mg PO DAILY rOPINIRole HCL [Requip] 1 mg PO HS Enalapril [Vasotec] 2.5 mg PO DAILY Warfarin [Coumadin] 7.5 mg PO HS Doxazosin [Cardura] 2 mg PO HS Atorvastatin [Lipitor] 40 mg PO HS #90 tab Aspirin EC [Ecotrin Low Dose] 81 mg PO DAILY HYDROcodone/APAP 10-325MG [[place] 10-325] 1 tab PO Q8H PRN PRN Reason: Pain Triamcinolone 0.5% Cream [Kenalog 0.5% Cream] 1 applic TOPICAL BID Omeprazole Magnesium [Prilosec OTC] 20 mg PO DAILY Discharge Medication List Atenolol 25 mg PO DAILY 04/02/16 [History] Doxazosin [Cardura] 2 mg PO HS 04/02/16 [History] Enalapril [Vasotec] 2.5 mg PO DAILY 04/02/16 [History] Ergocalciferol (Vitamin D2) [Drisdol] 50,000 unit PO FR 04/02/16 [History] Isosorbide Mononitrate ER [Imdur] 60 mg PO DAILY 04/02/16 [History] Propafenone [Rythmol] 150 mg PO TID 04/02/16 [History] Warfarin [Coumadin] 7.5 mg PO HS 04/02/16 [History] metFORMIN HCL [Glucophage] 500 mg PO BID 04/02/16 [History] rOPINIRole HCL [Requip] 1 mg PO HS 04/02/16 [History] Atorvastatin [Lipitor] 40 mg PO HS #90 tab 04/05/16 [Rx] Aspirin EC [Ecotrin Low Dose] 81 mg PO DAILY 07/06/17 [History] HYDROcodone/APAP 10-325MG [[place] 10-325] 1 tab PO Q8H PRN 07/06/17 [History] Omeprazole Magnesium [Prilosec OTC] 20 mg PO DAILY 07/06/17 [History] Triamcinolone 0.5% Cream [Kenalog 0.5% Cream] 1 applic TOPICAL BID 07/06/17 [ History] Follow up Appointment(s)/Referral(s): Demetris Mendoza MD [STAFF PHYSICIAN] - 2 Weeks Andrew Walker MD [Primary Care Provider] - 1 Week Patient Instructions/Handouts: Chest Pain (ED) Activity/Diet/Wound Care/Special Instructions: Diet: cardiac, diabetic Activity: as tolerated Discharge Disposition: HOME SELF-CARE
== END 2017-07-07 15:06 | disposition home or self-care (01) ==
LOC: EC 11:49 → 3OBS 13:29
PROVIDERS: ADMIT Internal Medicine; ATTEND Internal Medicine
DX: R07.89 Other chest pain (principal); E11.9 Type 2 diabetes mellitus without complications; E78.5 Hyperlipidemia, unspecified; I10 Essential (primary) hypertension; I48.0 Paroxysmal atrial fibrillation; R61 Generalized hyperhidrosis; R11.0 Nausea; Z68.25 Body mass index [BMI] 25.0-25.9, adult; E66.9 Obesity, unspecified; T45.516A Underdosing of anticoagulants, initial encounter; Z91.128 Patient's intentional underdosing of medication regimen for other reason; R00.1 Bradycardia, unspecified; Z79.01 Long term (current) use of anticoagulants; Z79.84 Long term (current) use of oral hypoglycemic drugs; Z79.82 Long term (current) use of aspirin; Z79.899 Other long term (current) drug therapy; Z87.891 Personal history of nicotine dependence; Z88.5 Allergy status to narcotic agent; Z86.73 Personal history of transient ischemic attack (TIA), and cerebral infarction without residual deficits
CPT/HCPCS: 99285 ×2; 96365; 36415; 93005; 93306; 84439; 83880; 80061; 80053; 84443; 83690; 83735 ×2; 84484 ×2; 85025; 85610 ×2; 85730; 81003; 83036; 71020; G0378 ×2; J3475

== ENCOUNTER 2019-04-17 21:50 | Emergency (ER) | payer MEDICARE ==
[2019-04-17 21:55] VITALS: RESP 18
[2019-04-17 22:54] LABS: Basophils % (A) 1 %; Eosinophils # (A) 0.5 k/uL (0-0.7); Eosinophils % (A) 6 %; HCT 50.1 % (39.0-53.0); HGB 17.2 gm/dL (13.0-17.5); Lymphocytes # (A) 1.9 k/uL (1.0-4.8); Lymphocytes % (A) 26 %; MCH 32.5 pg (25.0-35.0); MCHC 34.2 g/dL (31.0-37.0); Mean Platelet Volume 7.2; Monocytes # (A) 0.5 k/uL (0-1.0); Monocytes % (A) 7 %; Neutrophils # (A) 4.4 k/uL (1.3-7.7); Neutrophils % (A) 59 %; Platelet Count 163 k/uL (150-450); RBC 5.27 m/uL (4.30-5.90); RDW 13.1 % (11.5-15.5); WBC 7.4 k/uL (3.8-10.6)
[2019-04-17 23:00] LABS: INR 2.8 (<1.2); Prothrombin Time 26.8 sec (9.0-12.0); RBC,Urine >182 /hpf (0-5)
[2019-04-17 23:01] LABS: Appearance,Urine Bloody (Clear); Color,Urine Dark Red
[2019-04-17 23:02] LABS: African American GFR (CKD) >90 (>60 ml/min/1.73 sqM); Anion Gap 8 mmol/L; Blood Urea Nitrogen 13 mg/dL (9-20); Calcium 10.1 mg/dL (8.4-10.2); Carbon Dioxide 25 mmol/L (22-30); Chloride 107 mmol/L (98-107); Glucose 288 mg/dL (74-99); Potassium 3.9 mmol/L (3.5-5.1); Sodium 140 mmol/L (137-145)
--- NOTE | 2019-04-17 23:11 | ED ---
General Adult HPI - General Chief complaint: Urogenital Stated complaint: Blood in urine Time Seen by Provider: 04/17/19 21:55 Source: patient Mode of arrival: ambulatory Limitations: no limitations - History of Present Illness Initial comments: Dictation was produced using [employer] dictation software. please excuse any grammatical, word or spelling errors. Chief Complaint: 68-year-old male presents with episode of hematuria. History of Present Illness: 68-year-old male he has past medical history of atrial fibrillation he takes Coumadin. Patient went to go urinate after dinner and noticed that he was urinating bright red blood. Patient has history of kidney stones status post lithotripsy several years ago. He has no other urologic history. Patient states that his hematuria improved slightly and instead of being bright red it is more burgundy. Patient has no pain complaints at this time. No abdominal pain no nausea vomiting diarrhea. No flank pain. The ROS documented in this emergency department record has been reviewed and confirmed by me. Those systems with pertinent positive or negative responses have been documented in the HPI. All other systems are other negative and/or noncontributory. PHYSICAL EXAM: General Impression: Alert and oriented x3, not in acute distress HEENT: Normocephalic atraumatic, extra-ocular movements intact, pupils equal and reactive to light bilaterally, mucous membranes moist. Cardiovascular: Heart regular rate and rhythm, S1&S2 audible, no murmurs, rubs or gallops Chest: Lungs clear to auscultation bilaterally, no rhonchi, no wheeze, no rales Abdomen: Bowel sounds present, abdomen soft, non-tender, non-distended, no organomegaly Musculoskeletal: Pulses present and equal in all extremities, no peripheral edema Motor: no focal deficits noted Neurological: CN II-XII grossly intact, no focal motor or sensory deficits noted Skin: Intact with no visualized rashes Psych: Normal affect and mood ED course: 80-year-old male presents with painless hematuria. Vital signs upon arrival shows blood pressure 200/93, respiratory signs within acceptable limits. Postvoid residual was 13 mL.Laboratory evaluation obtained. Hemoglobin stable. Coag panel shows INR of 2.8, metabolic panel is unremarkable. Glucose 288. Just had dinner. Urinalysis shows greater than 182 red blood cells. Value at bedside found to be in stable medical condition. Patient has no pain complaints at this time. Discussed importance of following up with urologist for possible cystoscopy. He is advised to continue to be his Coumadin. Strict return precautions were discussed with patient is understandable and agreeable. He is told to come back to the emergency department for symptoms of blood loss and urinary retention. Repeat vital signs are stable. Patient clear for discharge. - Related Data Home Medications Medication Instructions Recorded Confirmed Atenolol 25 mg PO DAILY 04/02/16 04/17/19 Doxazosin [Cardura] 2 mg PO HS 04/02/16 04/17/19 Enalapril [Vasotec] 2.5 mg PO DAILY 04/02/16 04/17/19 Isosorbide Mononitrate ER [Imdur] 60 mg PO DAILY 04/02/16 04/17/19 Propafenone [Rythmol] 150 mg PO TID 04/02/16 04/17/19 Warfarin [Coumadin] 7.5 mg PO MOTUWETHFRSA 04/02/16 04/17/19 metFORMIN HCL [Glucophage] 500 mg PO BID 04/02/16 04/17/19 rOPINIRole HCL [Requip] 1 mg PO HS 04/02/16 04/17/19 Omeprazole Magnesium [PriLOSEC OTC] 20 mg PO DAILY 07/06/17 04/17/19 Glimepiride [Amaryl] 4 mg PO DAILY 04/17/19 04/17/19 Multivitamins, Thera [Multivitamin 1 tab PO DAILY 04/17/19 04/17/19 (formulary)] Warfarin Sodium [Coumadin] 10 mg PO CANCINO 04/17/19 04/17/19 traMADol HCL [Ultram] 50 mg PO BID 04/17/19 04/17/19 Previous Rx's Medication Instructions Recorded Atorvastatin [Lipitor] 40 mg PO HS #90 tab 04/05/16 Allergies Allergy/AdvReac Type Severity Reaction Status Date / Time hydromorphone HCl AdvReac Hallucinati Verified 04/17/19 22:18 [From Dilaudid] ons Review of Systems ROS Statement: Those systems with pertinent positive or pertinent negative responses have been documented in the HPI. ROS Other: All systems not noted in ROS Statement are negative. Past Medical History Past Medical History: Atrial Fibrillation, CVA/TIA, Diabetes Mellitus, Hyperlipidemia, Hypertension Additional Past Medical History / Comment(s): NIDDM, kidney stones History of Any Multi-Drug Resistant Organisms: None Reported Past Surgical History: No Surgical Hx Reported Additional Past Surgical History / Comment(s): 2008 normal heart cath, EGD/colonoscopy, R lower eyelid sx, R cataract removal, R foot bunionectomy. Past Anesthesia/Blood Transfusion Reactions: No Reported Reaction Past Psychological History: No Psychological Hx Reported Smoking Status: Current every day smoker Past Alcohol Use History: None Reported Past Drug Use History: None Reported - Past Family History Mother Family Medical History: Diabetes Mellitus Additional Family Medical History / Comment(s): Mother haad heart problems. Father History Unknown: Yes Additional Family Medical History / Comment(s): Pt does not know his father's health hx. General Exam Limitations: no limitations Course Vital Signs 04/17/19 04/17/19 21:51 23:33 Temperature 98.2 F 98.4 F Pulse Rate 67 60 Respiratory 18 18 Rate Blood Pressure 200/93 152/85 O2 Sat by Pulse 98 96 Oximetry Medical Decision Making - Lab Data Result diagrams: 04/17/19 22:35 04/17/19 22:35 Lab Results 04/17/19 04/17/19 04/17/19 Range/Units 22:35 22:35 22:35 WBC 7.4 (3.8-10.6) k/uL RBC 5.27 (4.30-5.90) m/uL Hgb 17.2 (13.0-17.5) gm/dL Hct 50.1 (39.0-53.0) % MCV 95.0 (80.0-100.0) fL MCH 32.5 (25.0-35.0) pg MCHC 34.2 (31.0-37.0) g/dL RDW 13.1 (11.5-15.5) % Plt Count 163 (150-450) k/uL Neutrophils % 59 % Lymphocytes % 26 % Monocytes % 7 % Eosinophils % 6 % Basophils % 1 % Neutrophils # 4.4 (1.3-7.7) k/uL Lymphocytes # 1.9 (1.0-4.8) k/uL Monocytes # 0.5 (0-1.0) k/uL Eosinophils # 0.5 (0-0.7) k/uL Basophils # 0.0 (0-0.2) k/uL PT 26.8 H (9.0-12.0) sec INR 2.8 H (<1.2) Sodium 140 (137-145) mmol/L Potassium 3.9 (3.5-5.1) mmol/L Chloride 107 (98-107) mmol/L Carbon Dioxide 25 (22-30) mmol/L Anion Gap 8 mmol/L BUN 13 (9-20) mg/dL Creatinine 0.72 (0.66-1.25) mg/dL Est GFR (CKD-EPI)AfAm >90 (>60 ml/min/1.73 sqM) Est GFR (CKD-EPI)NonAf >90 (>60 ml/min/1.73 sqM) Glucose 288 H (74-99) mg/dL Calcium 10.1 (8.4-10.2) mg/dL Urine Color Urine Appearance (Clear) Urine RBC (0-5) /hpf 04/17/19 Range/Units 22:35 WBC (3.8-10.6) k/uL RBC (4.30-5.90) m/uL Hgb (13.0-17.5) gm/dL Hct (39.0-53.0) % MCV (80.0-100.0) fL MCH (25.0-35.0) pg MCHC (31.0-37.0) g/dL RDW (11.5-15.5) % Plt Count (150-450) k/uL Neutrophils % % Lymphocytes % % Monocytes % % Eosinophils % % Basophils % % Neutrophils # (1.3-7.7) k/uL Lymphocytes # (1.0-4.8) k/uL Monocytes # (0-1.0) k/uL Eosinophils # (0-0.7) k/uL Basophils # (0-0.2) k/uL PT (9.0-12.0) sec INR (<1.2) Sodium (137-145) mmol/L Potassium (3.5-5.1) mmol/L Chloride (98-107) mmol/L Carbon Dioxide (22-30) mmol/L Anion Gap mmol/L BUN (9-20) mg/dL Creatinine (0.66-1.25) mg/dL Est GFR (CKD-EPI)AfAm (>60 ml/min/1.73 sqM) Est GFR (CKD-EPI)NonAf (>60 ml/min/1.73 sqM) Glucose (74-99) mg/dL Calcium (8.4-10.2) mg/dL Urine Color Dark Red Urine Appearance Bloody (Clear) Urine RBC >182 H (0-5) /hpf Disposition Clinical Impression: Hematuria Disposition: HOME SELF-CARE Instructions (If sedation given, give patient instructions): Hematuria (ED) Is patient prescribed a controlled substance at d/c from ED?: No Referrals: Prosper Daniels MD [STAFF PHYSICIAN] - 1-2 days Time of Disposition: 23:43
[2019-04-17 23:34] VITALS: BP 152/85; PULSE 60; TEMP 98.4
== END 2019-04-17 23:59 | disposition home or self-care (01) ==
LOC: EC 21:50
DX: R31.9 Hematuria, unspecified (principal); E11.9 Type 2 diabetes mellitus without complications; I10 Essential (primary) hypertension; I48.91 Unspecified atrial fibrillation; E78.5 Hyperlipidemia, unspecified; F17.200 Nicotine dependence, unspecified, uncomplicated; Z79.01 Long term (current) use of anticoagulants; Z79.891 Long term (current) use of opiate analgesic; Z79.899 Other long term (current) drug therapy; Z86.73 Personal history of transient ischemic attack (TIA), and cerebral infarction without residual deficits; Z79.84 Long term (current) use of oral hypoglycemic drugs; Z88.5 Allergy status to narcotic agent
CPT/HCPCS: 36415; 51798; 80048; 81001; 85025; 85610; 99284

== ENCOUNTER → 2019-05-15 | Outpatient (CLI) | payer MEDICARE ==
[2019-05-15 15:48] LABS: African American GFR (CKD) >90 (>60 ml/min/1.73 sqM); Blood Urea Nitrogen 16 mg/dL (9-20)
--- NOTE | 2019-05-16 16:29 | CT ---
EXAMINATION TYPE: CT abdomen pelvis w con DATE OF EXAM: 05/15/2019 COMPARISON: 07/10/2016 INDICATION: hematuria X 1 week DLP: 1529.7 mGycm, Automated exposure control for dose reduction was used. CONTRAST: 100 mL of Isovue 300. Study performed with Oral Contrast TECHNIQUE: Axial images were obtained from above the diaphragm to the pubic rami in the axial plane a t 5 mm thick sections. Reconstructed images are reviewed on the computer in the coronal plane. FINDINGS: Limited CT sections are obtained the lung bases. There is a 0.6 cm nodule within the posterior later al left costophrenic sulcus.. CT ABDOMEN: Liver: Normal Spleen: Normal Pancreas: Ectatic duct is somewhat prominent within the body measuring 0.3 cm. Normal less than 0.2 c m. There is mild prominence of the pancreatic duct within the head of the pancreas measuring 0.5 cm. Consider ERCP for additional evaluation. Adrenal glands: The adrenal glands are normal. Gallbladder: No stones may be present. Kidneys: No masses are evident. No hydronephrosis is present. There is a 4.1 cm cyst measuring 6 Ho unsfield units superior pole right kidney. There is a 3.3 cm cyst at the anterior inferior right kidn ey measuring 10 Hounsfield units. Delayed images were obtained through the kidneys, which remain unr emarkable. Aorta: Vascular calcification is within the aorta. Inferior vena cava: Normal. CT PELVIS: Loops of bowel within the abdomen and pelvis are normal. There are loops of bowel which are incom pletely distended or lack oral contrast limiting their evaluation. Contrast extends to the mid ileum. Appendix: Normal as visualized. Urinary bladder: Normal. Genitourinary structures: There is somewhat prominent. Osseous structures: No suspicious lytic or sclerotic lesions are evident. Degenerative disc changes a re within the L5-S1 level. IMPRESSIONS: 1. Simple right renal cysts. 2. Prominence of the pancreatic duct. Consider ERCP for additional evaluation. 3. Suspected gallstones.
== END | disposition home or self-care (01) ==
LOC: RADCTMAIN 14:58
PROVIDERS: ATTEND Urology
DX: N28.1 Cyst of kidney, acquired (principal)
CPT/HCPCS: 82565; 84520; 74177; 36415; Q9967

== ENCOUNTER → 2019-07-04 | Outpatient (CLI) | payer MEDICARE ==
--- NOTE | 2019-07-06 19:08 | MR ---
EXAMINATION TYPE: MR MRCP DATE OF EXAM: 07/04/2019 COMPARISON: CT 05/15/2019 HISTORY: 68-year-old male with abnormal finding on parts of digestive tract Technique: Multiple, multisequence images of the abdomen were acquired without IV contrast. Highly T2 weighted sequences of the pancreaticobiliary system were obtained. 3-D reconstructions generated on a dedicated independent workstation. FINDINGS: The heart is upper limits of normal in size with small pericardial fluid. No focal liver lesion. No significant loss of signal within the liver on out of phase T1-weighted seq uence to suggest fatty infiltration. No focal liver lesion. Tiny layering gallstones measuring up to 6 mm. No abnormal gallbladder distention or wall thickening. Bile duct is normal caliber without filling defect. There is mild generalized dilatation of the main pancreatic duct, greatest extent within the pancreat ic head region at 6 mm. No suspicious filling defect or abnormal contour irregularity. MRCP images sh ow concomitant minimal side branch ectasia throughout. Otherwise, the pancreas appears within normal limits. No cystic lesion. No appreciable solid lesion by noncontrast technique Right-sided renal cysts measure 4.6 cm in the upper pole, 4.3 cm in the lower pole, and 7 mm in the m idpole. Small parapelvic cysts in the left kidney measure up to 1.5 cm. Adrenal glands and spleen appear within normal limits. No upper abdominal lymphadenopathy, ascites fluid, or gross bowel abnormality. IMPRESSION: 1. Diffuse smooth main pancreatic ductal dilatation up to 6 mm and minimal side branch ectasia. Findi ngs may reflect chronic sequela of prior episodes of pancreatitis. Possibility of a main duct IPMN is not excluded. No suspicious nodular components or filling defects. Correlate with pancreatic enzyme markers. Follow-up versus surgical evaluation as clinically indicated. 2. Tiny layering gallstones. No biliary ductal dilatation.
== END | disposition home or self-care (01) ==
LOC: RADMRIMAIN 06:33
DX: K86.89 Other specified diseases of pancreas (principal); K80.20 Calculus of gallbladder without cholecystitis without obstruction
CPT/HCPCS: 74181

== ENCOUNTER → 2019-07-06 | Outpatient (CLI) | payer MEDICARE ==
[2019-07-06 18:09] LABS: Albumin 4.2 g/dL (3.80-4.90); Albumin/Globulin Ratio 2.63 (1.60-3.17); Bilirubin, Conjugated 0.3 mg/dL (0.20-0.40); Bilirubin,Unconjugated 0.5 mg/dL; Globulin 1.6 g/dL (1.6-3.3); Total Bilirubin 0.8 mg/dL (0.2-1.2); Total Protein 5.8 g/dL (6.2-8.2)
== END | disposition home or self-care (01) ==
LOC: LABWHC1 12:21
PROVIDERS: ATTEND Physician Assistant
DX: Q45.3 Other congenital malformations of pancreas and pancreatic duct (principal)
CPT/HCPCS: 36415; 80076

== ENCOUNTER 2019-09-06 10:01 | Inpatient (IN) | payer MEDICARE ==
[2019-09-06] MEDS ORDERED: ONDANSETRON 4 MG/2 ML VIAL IVP STA (10:51)
[2019-09-06] MEDS ORDERED: MORPHINE SULFATE 4 MG/ML SYRINGE IV STA (10:51)
[2019-09-06] MEDS ORDERED: SODIUM CHLORIDE 0.9% 500 ML 500 ML IV STA ×2 (10:51→13:10)
--- NOTE | 2019-09-06 11:02 | ED ---
Abdominal Pain HPI - General Chief Complaint: Abdominal Pain Stated Complaint: Back, abdominal and flank pain Time Seen by Provider: 09/06/19 10:29 Source: patient Mode of arrival: ambulatory Limitations: no limitations - History of Present Illness Initial Comments: Patient is a 69-year-old male, with multiple comorbidities, presenting to the emergency Department with complaints of sharp abdominal pain started 2 days ago. Patient states that abdominal pain woke him up approximately 1 AM 2 nights ago. Patient describes the pain as very sharp, right and left side of his abdomen, with pain radiating to both sides of his back. Patient states he has not had a bowel movement in 2 days as well. Patient denies history of abdominal surgeries. Patient states he is unable to lay down as this intensifies his pain. Patient has not been able sleep the last 2 nights. Patient does admit to mild nausea, no vomiting, no diarrhea. He also feels like he is bloated as well. Patient denies fever, chills, chest pain. Patient states he does have mild pain with deep inhalation secondary to the belly pain, no trouble with breathing. Patient states he's never had pain like this. Patient does admit to history of kidney stones but states this feels much different. Patient has no other complaints at this time. Upon arrival to the ER, his vital signs are stable. - Related Data Home Medications Medication Instructions Recorded Confirmed Atenolol 25 mg PO DAILY 04/02/16 09/06/19 Doxazosin [Cardura] 2 mg PO DAILY 04/02/16 09/06/19 Enalapril [Vasotec] 2.5 mg PO DAILY 04/02/16 09/06/19 Isosorbide Mononitrate ER [Imdur] 60 mg PO DAILY 04/02/16 09/06/19 Propafenone [Rythmol] 150 mg PO TID 04/02/16 09/06/19 Warfarin [Coumadin] 7.5 mg PO MOTUWETHFRSA 04/02/16 09/06/19 Omeprazole Magnesium [PriLOSEC OTC] 20 mg PO DAILY 07/06/17 09/06/19 Glimepiride [Amaryl] 4 mg PO DAILY 04/17/19 09/06/19 Multivitamins, Thera [Multivitamin 1 tab PO DAILY 04/17/19 09/06/19 (formulary)] Warfarin Sodium [Coumadin] 10 mg PO CANCINO 04/17/19 09/06/19 traMADol HCL [Ultram] 50 mg PO TID PRN 04/17/19 09/06/19 Atorvastatin [Lipitor] 40 mg PO DAILY 09/06/19 09/06/19 metFORMIN HCL 1,000 mg PO BID 09/06/19 09/06/19 rOPINIRole HCL [Requip] 2 mg PO HS 09/06/19 09/06/19 Allergies Allergy/AdvReac Type Severity Reaction Status Date / Time hydromorphone HCl AdvReac Hallucinati Verified 09/06/19 13:58 [From Dilaudid] ons Review of Systems ROS Statement: Those systems with pertinent positive or pertinent negative responses have been documented in the HPI. ROS Other: All systems not noted in ROS Statement are negative. Past Medical History Past Medical History: Atrial Fibrillation, CVA/TIA, Diabetes Mellitus, Hyperlipidemia, Hypertension Additional Past Medical History / Comment(s): NIDDM, kidney stones History of Any Multi-Drug Resistant Organisms: None Reported Past Surgical History: No Surgical Hx Reported Additional Past Surgical History / Comment(s): 2008 normal heart cath, EGD/colonoscopy, R lower eyelid sx, R cataract removal, R foot bunionectomy. Past Anesthesia/Blood Transfusion Reactions: No Reported Reaction Past Psychological History: No Psychological Hx Reported Smoking Status: Current every day smoker Past Alcohol Use History: None Reported Past Drug Use History: None Reported - Past Family History Mother Family Medical History: Diabetes Mellitus Additional Family Medical History / Comment(s): Mother haad heart problems. Father History Unknown: Yes Additional Family Medical History / Comment(s): Pt does not know his father's health hx. General Exam - General Exam Comments Initial Comments: GENERAL: Well-nourished and in no acute distress, but appears uncomfortable. HEAD: Atraumatic, normocephalic. EYES: Pupils equal round and reactive to light, extraocular movements intact, sclera anicteric, conjunctiva are normal. ENT: TMs normal, nares patent, oropharynx clear without exudates. Moist mucous membranes. NECK: Normal range of motion, supple without lymphadenopathy or JVD. LUNGS: Breath sounds clear to auscultation bilaterally and equal. No wheezes rales or rhonchi. HEART: Regular rate and rhythm without murmurs, rubs or gallops. ABDOMEN: Tender to palpation right and left upper quadrants as well as umbilical area. Bilateral flank pain, increased on the right. Patient does appear to be slightly distended. Normoactive bowel sounds. No guarding, no rebound. No masses appreciated. : Deferred EXTREMITIES: Normal range of motion, no pitting or edema. No clubbing or cyanosis. NEUROLOGICAL: Normal speech, normal gait. PSYCH: Normal mood, normal affect. SKIN: Warm, Dry, normal turgor, no rashes or lesions noted. Limitations: no limitations Course Vital Signs 09/06/19 09/06/19 09/06/19 10:17 14:12 15:00 Temperature 99.4 F 98 F Pulse Rate 81 71 Pulse Rate [ 87 Right] Respiratory 19 18 12 Rate Blood Pressure 160/94 136/75 Blood Pressure 126/72 [Right Arm] O2 Sat by Pulse 96 94 L 93 L Oximetry Medical Decision Making - Medical Decision Making Patient is 69-year-old male presenting with severe abdominal pain for 2 days. Vital signs stable upon arrival. Lab work reveals leukocytosis 16.1, lactic acid is 2.1 bilirubin is 1.6, glucose is 292. UA shows 4+ glucose otherwise normal. CT abdomen shows findings of acute cholecystitis. Is also inflammation and mild fluid tracking down the right side of the abdomen. Borderline AAA at 3.0CM. Findings were discussed with the patient. Patient will be admitted for possible surgical intervention. Patient was started on antibiotics, pain con trol, and fluids. Patient accepted by Dr. Ignacio. Patient will hold Coumadin, nothing by mouth. Case discussed in detail with Dr. Restrepo who agrees with this plan of care. - Lab Data Result diagrams: 09/06/19 11:00 09/06/19 11:00 Lab Results 09/06/19 09/06/19 09/06/19 Range/Units 11:00 11:00 11:00 WBC 16.1 H (3.8-10.6) k/uL RBC 4.96 (4.30-5.90) m/uL Hgb 16.5 (13.0-17.5) gm/dL Hct 46.0 (39.0-53.0) % MCV 92.7 (80.0-100.0) fL MCH 33.2 (25.0-35.0) pg MCHC 35.8 (31.0-37.0) g/dL RDW 13.0 (11.5-15.5) % Plt Count 152 (150-450) k/uL Neutrophils % 88 % Lymphocytes % 5 % Monocytes % 6 % Eosinophils % 1 % Basophils % 0 % Neutrophils # 14.1 H (1.3-7.7) k/uL Lymphocytes # 0.8 L (1.0-4.8) k/uL Monocytes # 1.0 (0-1.0) k/uL Eosinophils # 0.1 (0-0.7) k/uL Basophils # 0.0 (0-0.2) k/uL PT (9.0-12.0) sec INR (<1.2) APTT (22.0-30.0) sec Sodium 137 (137-145) mmol/L Potassium 3.6 (3.5-5.1) mmol/L Chloride 104 (98-107) mmol/L Carbon Dioxide 21 L (22-30) mmol/L Anion Gap 12 mmol/L BUN 13 (9-20) mg/dL Creatinine 0.68 (0.66-1.25) mg/dL Est GFR (CKD-EPI)AfAm >90 (>60 ml/min/1.73 sqM) Est GFR (CKD-EPI)NonAf >90 (>60 ml/min/1.73 sqM) Glucose 292 H (74-99) mg/dL Lactic Ac Sepsis Rflx Plasma Lactic Acid Jose R 2.1 H* (0.7-2.0) mmol/L Calcium 10.0 (8.4-10.2) mg/dL Total Bilirubin 1.6 H (0.2-1.3) mg/dL AST 22 (17-59) U/L ALT 24 (4-49) U/L Alkaline Phosphatase 70 (38-126) U/L Total Protein 6.2 L (6.3-8.2) g/dL Albumin 3.9 (3.5-5.0) g/dL Amylase 54 (30-110) U/L Lipase 114 (23-300) U/L Urine Color Urine Appearance (Clear) Urine pH (5.0-8.0) Ur Specific [place] (1.001-1.035) Urine Protein (Negative) Urine Glucose (UA) (Negative) Urine Ketones (Negative) Urine Blood (Negative) Urine Nitrite (Negative) Urine Bilirubin (Negative) Urine Urobilinogen (<2.0) mg/dL Ur Leukocyte Esterase (Negative) Urine RBC (0-5) /hpf Urine WBC (0-5) /hpf Ur Squamous Epith Cells (0-4) /hpf Urine Mucus (None) /hpf 09/06/19 09/06/19 09/06/19 Range/Units 11:00 11:47 11:50 WBC (3.8-10.6) k/uL RBC (4.30-5.90) m/uL Hgb (13.0-17.5) gm/dL Hct (39.0-53.0) % MCV (80.0-100.0) fL MCH (25.0-35.0) pg MCHC (31.0-37.0) g/dL RDW (11.5-15.5) % Plt Count (150-450) k/uL Neutrophils % % Lymphocytes % % Monocytes % % Eosinophils % % Basophils % % Neutrophils # (1.3-7.7) k/uL Lymphocytes # (1.0-4.8) k/uL Monocytes # (0-1.0) k/uL Eosinophils # (0-0.7) k/uL Basophils # (0-0.2) k/uL PT 31.2 H (9.0-12.0) sec INR 3.2 H (<1.2) APTT 40.6 H (22.0-30.0) sec Sodium (137-145) mmol/L Potassium (3.5-5.1) mmol/L Chloride (98-107) mmol/L Carbon Dioxide (22-30) mmol/L Anion Gap mmol/L BUN (9-20) mg/dL Creatinine (0.66-1.25) mg/dL Est GFR (CKD-EPI)AfAm (>60 ml/min/1.73 sqM) Est GFR (CKD-EPI)NonAf (>60 ml/min/1.73 sqM) Glucose (74-99) mg/dL Lactic Ac Sepsis Rflx Y Plasma Lactic Acid Jose R (0.7-2.0) mmol/L Calcium (8.4-10.2) mg/dL Total Bilirubin (0.2-1.3) mg/dL AST (17-59) U/L ALT (4-49) U/L Alkaline Phosphatase (38-126) U/L Total Protein (6.3-8.2) g/dL Albumin (3.5-5.0) g/dL Amylase (30-110) U/L Lipase (23-300) U/L Urine Color Yellow Urine Appearance Clear (Clear) Urine pH 5.5 (5.0-8.0) Ur Specific [place] 1.022 (1.001-1.035) Urine Protein Trace H (Negative) Urine Glucose (UA) 4+ H (Negative) Urine Ketones Negative (Negative) Urine Blood Trace H (Negative) Urine Nitrite Negative (Negative) Urine Bilirubin Negative (Negative) Urine Urobilinogen <2.0 (<2.0) mg/dL Ur Leukocyte Esterase Negative (Negative) Urine RBC 1 (0-5) /hpf Urine WBC 1 (0-5) /hpf Ur Squamous Epith Cells <1 (0-4) /hpf Urine Mucus Rare H (None) /hpf Disposition Clinical Impression: Acute cholecystitis, Abdominal pain Disposition: ADMITTED IP TO THIS [facility] Condition: Good Is patient prescribed a controlled substance at d/c from ED?: No Decision Date: 09/06/19 Decision Time: 13:11
[2019-09-06 11:29] LABS: INR 3.2 (<1.2); Partial Thromboplastin Time 40.6 sec (22.0-30.0); Prothrombin Time 31.2 sec (9.0-12.0)
[2019-09-06 11:31] LABS: Chloride 104 mmol/L (98-107)
[2019-09-06 11:33] LABS: ALT 24 U/L (4-49); AST 22 U/L (17-59); African American GFR (CKD) >90 (>60 ml/min/1.73 sqM); Albumin 3.9 g/dL (3.5-5.0); Alkaline Phosphatase 70 U/L (38-126); Amylase 54 U/L (30-110); Anion Gap 12 mmol/L; Basophils % (A) 0 %; Blood Urea Nitrogen 13 mg/dL (9-20); Carbon Dioxide 21 mmol/L (22-30); Eosinophils # (A) 0.1 k/uL (0-0.7); Eosinophils % (A) 1 %; Glucose 292 mg/dL (74-99); HGB 16.5 gm/dL (13.0-17.5); Lymphocytes # (A) 0.8 k/uL (1.0-4.8); Lymphocytes % (A) 5 %; MCH 33.2 pg (25.0-35.0); MCHC 35.8 g/dL (31.0-37.0); MCV 92.7 fL (80.0-100.0); Mean Platelet Volume 8.3; Monocytes % (A) 6 %; Neutrophils # (A) 14.1 k/uL (1.3-7.7); Neutrophils % (A) 88 %; Non-African American GFR(CKD) >90 (>60 ml/min/1.73 sqM); Platelet Count 152 k/uL (150-450); Potassium 3.6 mmol/L (3.5-5.1); RBC 4.96 m/uL (4.30-5.90); Sodium 137 mmol/L (137-145); Total Bilirubin 1.6 mg/dL (0.2-1.3); Total Protein 6.2 g/dL (6.3-8.2); WBC 16.1 k/uL (3.8-10.6)
[2019-09-06 12:37] LABS: Appearance,Urine Clear (Clear); Bilirubin,Urine Negative (Negative); Blood,Urine Trace (Negative); Color,Urine Yellow; Glucose,Urine (UA) 4+ (Negative); Ketones,Urine Negative (Negative); Leukocyte Esterase,Urine Negative (Negative); Mucus,Urine Rare /hpf; Nitrite,Urine Negative (Negative); PH, Urine 5.5 (5.0-8.0); Protein,Urine Trace (Negative); RBC,Urine 1 /hpf (0-5); Specific Gravity,Urine 1.022 (1.001-1.035); Squamous Epithelial Cell,Urine <1 /hpf (0-4); Urobilinogen,Urine <2.0 mg/dL (<2.0); WBC,Urine 1 /hpf (0-5)
--- NOTE | 2019-09-06 12:46 | CT ---
EXAMINATION TYPE: CT abdomen pelvis w con DATE OF EXAM: 09/06/2019 COMPARISON: 05/15/2019 and 07/10/2016 HISTORY: 69-year-old male Generalized upper abdominal pain TECHNIQUE: Contiguous axial scanning of the abdomen and pelvis following administration of 100 ml Iso yodit 300 IV contrast. Delayed images through the kidneys and coronal/sagittal reconstructions perform ed. CT DLP: 1557.7 mGycm Automated exposure control for dose reduction was used. FINDINGS: Heart upper limits of normal in size with small anterior basilar pericardial fluid. Three-vessel tosin nary artery calcifications are present. Dependent atelectasis in the visualized lower lungs without p leural effusion. There is some hyperemia seen along the gallbladder fossa. Portal venous system is patent. Bile duct i s not dilated. However, the gallbladder is hydropic at 10.8 x 4.0 cm with moderate surrounding inflammation and trac bell edema. Small gallstones are demonstrated. Adrenal glands, spleen, pancreas within normal limits. A couple cysts within the right kidney measure up to 4.3 cm, unchanged. Small parapelvic cyst left ki dney. Circumaortic left renal vein. Mild atherosclerotic calcifications abdominal aorta with borderline fusiform aneurysm of the 3.0 cm. Normal appendix. No dilated small bowel, free fluid, or free air. Mild stool. Some scattered prominent mesenteric lymph nodes measuring up to 9 mm likely reactive. There is a mild circumferential wall thickening along the hepatic flexure likely reactive to the adjacent inflammati on. Mild to moderate stool burden. Mild/moderate circumferential bladder wall thickening. Right-sided pelvic fluid. No abnormal fluid co llection in the pelvis or pelvic lymphadenopathy. Bones: Facet arthropathy lower lumbar spine with grade 1 anterolisthesis at L4-L5. Moderate to advanc ed degenerative disc disease L5-S1. IMPRESSION: 1. INFLAMMATION CENTERED AT THE RIGHT UPPER QUADRANT WITH HYDROPIC GALLBLADDER AND CHOLELITHIASIS. FI NDINGS SUGGEST ACUTE CHOLECYSTITIS. 2. INFLAMMATION AND MILD FLUID TRACKS DOWN THE RIGHT SIDE OF THE ABDOMEN. 3. BORDERLINE AAA AT 3.0 CM. 4. MILD TO MODERATE CIRCUMFERENTIAL BLADDER WALL THICKENING MAY REPRESENT CHRONIC BLADDER HYPERTROPHY . CORRELATE TO EXCLUDE CYSTITIS.
[2019-09-06] MEDS ORDERED: MORPHINE SULFATE 4 MG/ML SYRINGE IVP STA (13:10)
[2019-09-06] MEDS ORDERED: ACETAMINOPHEN TAB 325 MG TAB PO PRN (13:11)
[2019-09-06] MEDS ORDERED: NALOXONE 0.4 MG/ML 1 ML VIAL IV PRN (13:11)
[2019-09-06] MEDS ORDERED: PIPERACILLIN-TAZOBACTAM 3.375 GM in SODIUM CHLORIDE 0.9% 100 ML IVPB STA (13:52)
--- NOTE | 2019-09-06 15:12 | P.HPIM ---
History of Present Illness H&P Date: 09/06/19 Chief Complaint: abdominal pain This is a 69-year-old male patient who presented with complaint of abdominal pain over the past 2 days. Patient reports that the pain started on 09/04 around 1 AM with sharp pain to lower abdomen and flank area. Patient reports mild nausea. Patient denies any vomiting or diarrhea. Patient does have a past medical history of atrial fibrillation which she is maintained on Coumadin, CVA, diabetes mellitus, hyperlipidemia, hypertension and nicotine dependence. CT of abdomen and pelvis completed showing inflammation centered at the right upper quadrant with hydropic gallbladder and cholelithiasis. Findings chest acute cholecystitis. Inflammation of mild fluid tracks on the right side of the abdomen. Borderline AAA at 3.0 cm mild to moderate superficial bladder wall thickening may represent chronic bladder hypertrophy correlate to exclude cystitis. White blood cell elevated at 16.1. INR 3.2. Lactic acid 2.1. At this time surgical and GI services have been consulted. Patient will be started on Rocephin. Coumadin will be held. Review of Systems please refer to HPI otherwise unremarkable Past Medical History Past Medical History: Atrial Fibrillation, CVA/TIA, Diabetes Mellitus, Hyperlipidemia, Hypertension Additional Past Medical History / Comment(s): NIDDM, kidney stones History of Any Multi-Drug Resistant Organisms: None Reported Past Surgical History: No Surgical Hx Reported Additional Past Surgical History / Comment(s): 2008 normal heart cath, EGD/colonoscopy, R lower eyelid sx, R cataract removal, R foot bunionectomy. Past Anesthesia/Blood Transfusion Reactions: No Reported Reaction Past Psychological History: No Psychological Hx Reported Smoking Status: Current every day smoker Past Alcohol Use History: None Reported Past Drug Use History: None Reported - Past Family History Mother Family Medical History: Diabetes Mellitus Additional Family Medical History / Comment(s): Mother haad heart problems. Father History Unknown: Yes Additional Family Medical History / Comment(s): Pt does not know his father's health hx. Medications and Allergies Home Medications Medication Instructions Recorded Confirmed Type Atenolol 25 mg PO DAILY 04/02/16 09/06/19 History Doxazosin [Cardura] 2 mg PO DAILY 04/02/16 09/06/19 History Enalapril [Vasotec] 2.5 mg PO DAILY 04/02/16 09/06/19 History Isosorbide Mononitrate ER [Imdur] 60 mg PO DAILY 04/02/16 09/06/19 History Propafenone [Rythmol] 150 mg PO TID 04/02/16 09/06/19 History Warfarin [Coumadin] 7.5 mg PO MOTUWETHFRSA 04/02/16 09/06/19 History Omeprazole Magnesium [PriLOSEC OTC] 20 mg PO DAILY 07/06/17 09/06/19 History Glimepiride [Amaryl] 4 mg PO DAILY 04/17/19 09/06/19 History Multivitamins, Thera [Multivitamin 1 tab PO DAILY 04/17/19 09/06/19 History (formulary)] Warfarin Sodium [Coumadin] 10 mg PO CANCINO 04/17/19 09/06/19 History traMADol HCL [Ultram] 50 mg PO TID PRN 04/17/19 09/06/19 History Atorvastatin [Lipitor] 40 mg PO DAILY 09/06/19 09/06/19 History metFORMIN HCL 1,000 mg PO BID 09/06/19 09/06/19 History rOPINIRole HCL [Requip] 2 mg PO HS 09/06/19 09/06/19 History Allergies Allergy/AdvReac Type Severity Reaction Status Date / Time hydromorphone HCl AdvReac Hallucinati Verified 09/06/19 13:58 [From Dilaudid] ons Physical Exam Vitals: Vital Signs Temp Pulse Resp BP Pulse Ox 09/06/19 14:12 71 18 136/75 94 L 09/06/19 10:17 99.4 F 81 19 160/94 96 Intake and Output 09/05/19 09/06/19 09/06/19 22:59 06:59 14:59 Other: Weight 102.058 kg Head normocephalic Neck supple Lungs clear to auscultation bilaterally no wheezing or crackles Heart irregular rhythm. No atrial fibrillation Abdomen is soft and rounded. Some tenderness to palpation to lower extremity and flank area Extremities no edema Neuro alert and orientated to 3 Results CBC & Chem 7: 09/06/19 11:00 09/06/19 11:00 Labs: Abnormal Lab Results - Last 24 Hours (Table) 09/06/19 09/06/19 09/06/19 Range/Units 11:00 11:00 11:00 WBC 16.1 H (3.8-10.6) k/uL Neutrophils # 14.1 H (1.3-7.7) k/uL Lymphocytes # 0.8 L (1.0-4.8) k/uL PT (9.0-12.0) sec INR (<1.2) APTT (22.0-30.0) sec Carbon Dioxide 21 L (22-30) mmol/L Glucose 292 H (74-99) mg/dL Plasma Lactic Acid Jose R 2.1 H* (0.7-2.0) mmol/L Total Bilirubin 1.6 H (0.2-1.3) mg/dL Total Protein 6.2 L (6.3-8.2) g/dL Urine Protein (Negative) Urine Glucose (UA) (Negative) Urine Blood (Negative) Urine Mucus (None) /hpf 09/06/19 09/06/19 Range/Units 11:00 11:50 WBC (3.8-10.6) k/uL Neutrophils # (1.3-7.7) k/uL Lymphocytes # (1.0-4.8) k/uL PT 31.2 H (9.0-12.0) sec INR 3.2 H (<1.2) APTT 40.6 H (22.0-30.0) sec Carbon Dioxide (22-30) mmol/L Glucose (74-99) mg/dL Plasma Lactic Acid Jose R (0.7-2.0) mmol/L Total Bilirubin (0.2-1.3) mg/dL Total Protein (6.3-8.2) g/dL Urine Protein Trace H (Negative) Urine Glucose (UA) 4+ H (Negative) Urine Blood Trace H (Negative) Urine Mucus Rare H (None) /hpf Assessment and Plan Assessment: 1. Abdominal pain secondary to acute cholecystitis with leukocytosis and elevated lactic acid. Abdominal CT completed showing inflammation centered at the right upper quadrant with hydropic gallbladder and cholelithiasis. Findings suggest acute cholecystitis. Inflammation mild fluid tracks down the right side of the abdomen. Borderline AAA at 3.0 cm mild to moderate superficial bladder wall thickening may represent chronic bladder hypertrophy correlate to exclude cystitis. Patient started on Zosyn. Surgical and GI services have been consulted. 2. History of paroxysmal atrial fibrillation. Continue Coumadin. INR 3.2 Coumadin on hold for possible surgical intervention 3. History of CVA 4. History of diabetes mellitus type 2 5. Hyperlipidemia. Maintained on statin 6. History of essential hypertension DVT prophylaxis SCDs. GI prophylaxis Proton[facility] GI and surgical service consulted Maurizio for IV antibiotics. Repeat lactic acid Patient currently nothing by mouth Coumadin on hold Time with Patient: Greater than 30 (Greater than 60% of the total time spent in counseling and coordination of care. I performed an examination of the patient and discussed their management with the Nurse Practitioner. I have reviewed the Nurse Practitioner's notes and agree with the documented findings and plan of care)
[2019-09-06] MEDS: SODIUM CHLORIDE 0.9% 1,000 ML IV SCH (15:35)
[2019-09-06] MEDS: MORPHINE SULFATE 4 MG/ML SYRINGE IV PRN ×2 (16:10→20:06)
[2019-09-06 17:07] LABS: Glucose,Whole Blood 155 mg/dL (75-99)
[2019-09-06] MEDS: PROPAFENONE 150 MG TAB PO SCH ×2 (17:26→22:11)
[2019-09-06] MEDS: INSULIN ASPART (NovoLOG) 100 UNIT/ML VIAL SQ SCH ×2 (17:26→21:45)
--- NOTE | 2019-09-06 18:33 | P.GSCN ---
History of Present Illness Consult date: 09/06/19 History of present illness: 69-year-old male presented a hospital chief complaint of abdominal pain was upper abdominal pain. He states it's across his entire upper abdomen. He's never had pain like this before in the past. He stated sterile 1:00 in the morning yesterday morning. His significant cardiac history and he is on Coumadin for A. fib. He denies any abdominal surgeries in the past. He denies fevers or chills. He sees having normal bowel movements he does state that he is hungry. 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 History of Any Multi-Drug Resistant Organisms: None Reported Past Surgical History: No Surgical Hx Reported, Heart Catheterization, Orthopedic Surgery Additional Past Surgical History / Comment(s): 2008 cardiac cath, 2015 cardiac cath treat medically, EGD, colonoscopy, R lower eyelid surgery, R cataract removed, lithotripsy, R foot bunionectomy. Past Anesthesia/Blood Transfusion Reactions: No Reported Reaction Smoking Status: Current every day smoker - Past Family History Mother Family Medical History: Diabetes Mellitus Additional Family Medical History / Comment(s): Mother haad heart problems. Father History Unknown: Yes Additional Family Medical History / Comment(s): Pt does not know his father's health hx. Medications and Allergies Home Medications Medication Instructions Recorded Confirmed Type Atenolol 25 mg PO DAILY 04/02/16 09/06/19 History Doxazosin [Cardura] 2 mg PO DAILY 04/02/16 09/06/19 History Enalapril [Vasotec] 2.5 mg PO DAILY 04/02/16 09/06/19 History Isosorbide Mononitrate ER [Imdur] 60 mg PO DAILY 04/02/16 09/06/19 History Propafenone [Rythmol] 150 mg PO TID 04/02/16 09/06/19 History Warfarin [Coumadin] 7.5 mg PO MOTUWETHFRSA 04/02/16 09/06/19 History Omeprazole Magnesium [PriLOSEC OTC] 20 mg PO DAILY 07/06/17 09/06/19 History Glimepiride [Amaryl] 4 mg PO DAILY 04/17/19 09/06/19 History Multivitamins, Thera [Multivitamin 1 tab PO DAILY 04/17/19 09/06/19 History (formulary)] Warfarin Sodium [Coumadin] 10 mg PO CANCINO 04/17/19 09/06/19 History traMADol HCL [Ultram] 50 mg PO TID PRN 04/17/19 09/06/19 History Atorvastatin [Lipitor] 40 mg PO DAILY 09/06/19 09/06/19 History metFORMIN HCL 1,000 mg PO BID 09/06/19 09/06/19 History rOPINIRole HCL [Requip] 2 mg PO HS 09/06/19 09/06/19 History Allergies Allergy/AdvReac Type Severity Reaction Status Date / Time hydromorphone HCl AdvReac Hallucinati Verified 09/06/19 13:58 [From Dilaudid] ons Surgical - Exam Osteopathic Statement: *. No significant issues noted on an osteopathic structural exam other than those noted in the History and Physical/Consult. Vital Signs Temp Pulse Resp BP Pulse Ox 99.4 F 81 19 160/94 96 09/06/19 10:17 09/06/19 10:17 09/06/19 10:17 09/06/19 10:17 09/06/19 10:17 - General well developed, no distress - Eyes PERRL - Neck trachea midline - Cardiovascular Rhythm: regular - Abdomen Soft nondistended tender to palpation in the midepigastric and right upper quadrant. - Neurologic normal coordination, normal sensation - Psychiatric oriented to time, oriented to person, oriented to place Results - Labs 09/06/19 11:00 09/06/19 11:00 Abnormal Lab Results - Last 24 Hours (Table) 09/06/19 09/06/19 09/06/19 Range/Units 11:00 11:00 11:00 WBC 16.1 H (3.8-10.6) k/uL Neutrophils # 14.1 H (1.3-7.7) k/uL Lymphocytes # 0.8 L (1.0-4.8) k/uL PT (9.0-12.0) sec INR (<1.2) APTT (22.0-30.0) sec Carbon Dioxide 21 L (22-30) mmol/L Glucose 292 H (74-99) mg/dL POC Glucose (mg/dL) (75-99) mg/dL Plasma Lactic Acid Jose R 2.1 H* (0.7-2.0) mmol/L Total Bilirubin 1.6 H (0.2-1.3) mg/dL Total Protein 6.2 L (6.3-8.2) g/dL Urine Protein (Negative) Urine Glucose (UA) (Negative) Urine Blood (Negative) Urine Mucus (None) /hpf 09/06/19 09/06/19 09/06/19 Range/Units 11:00 11:50 15:10 WBC (3.8-10.6) k/uL Neutrophils # (1.3-7.7) k/uL Lymphocytes # (1.0-4.8) k/uL PT 31.2 H (9.0-12.0) sec INR 3.2 H (<1.2) APTT 40.6 H (22.0-30.0) sec Carbon Dioxide (22-30) mmol/L Glucose (74-99) mg/dL POC Glucose (mg/dL) (75-99) mg/dL Plasma Lactic Acid Jose R 2.4 H* (0.7-2.0) mmol/L Total Bilirubin (0.2-1.3) mg/dL Total Protein (6.3-8.2) g/dL Urine Protein Trace H (Negative) Urine Glucose (UA) 4+ H (Negative) Urine Blood Trace H (Negative) Urine Mucus Rare H (None) /hpf 09/06/19 Range/Units 16:55 WBC (3.8-10.6) k/uL Neutrophils # (1.3-7.7) k/uL Lymphocytes # (1.0-4.8) k/uL PT (9.0-12.0) sec INR (<1.2) APTT (22.0-30.0) sec Carbon Dioxide (22-30) mmol/L Glucose (74-99) mg/dL POC Glucose (mg/dL) 155 H (75-99) mg/dL Plasma Lactic Acid Jose R (0.7-2.0) mmol/L Total Bilirubin (0.2-1.3) mg/dL Total Protein (6.3-8.2) g/dL Urine Protein (Negative) Urine Glucose (UA) (Negative) Urine Blood (Negative) Urine Mucus (None) /hpf Diabetes panel 09/06/19 Range/Units 11:00 Sodium 137 (137-145) mmol/L Potassium 3.6 (3.5-5.1) mmol/L Chloride 104 (98-107) mmol/L Carbon Dioxide 21 L (22-30) mmol/L BUN 13 (9-20) mg/dL Creatinine 0.68 (0.66-1.25) mg/dL Glucose 292 H (74-99) mg/dL Calcium 10.0 (8.4-10.2) mg/dL AST 22 (17-59) U/L ALT 24 (4-49) U/L Alkaline Phosphatase 70 (38-126) U/L Total Protein 6.2 L (6.3-8.2) g/dL Albumin 3.9 (3.5-5.0) g/dL Calcium panel 09/06/19 Range/Units 11:00 Calcium 10.0 (8.4-10.2) mg/dL Albumin 3.9 (3.5-5.0) g/dL Pituitary panel 09/06/19 Range/Units 11:00 Sodium 137 (137-145) mmol/L Potassium 3.6 (3.5-5.1) mmol/L Chloride 104 (98-107) mmol/L Carbon Dioxide 21 L (22-30) mmol/L BUN 13 (9-20) mg/dL Creatinine 0.68 (0.66-1.25) mg/dL Glucose 292 H (74-99) mg/dL Calcium 10.0 (8.4-10.2) mg/dL Adrenal panel 09/06/19 Range/Units 11:00 Sodium 137 (137-145) mmol/L Potassium 3.6 (3.5-5.1) mmol/L Chloride 104 (98-107) mmol/L Carbon Dioxide 21 L (22-30) mmol/L BUN 13 (9-20) mg/dL Creatinine 0.68 (0.66-1.25) mg/dL Glucose 292 H (74-99) mg/dL Calcium 10.0 (8.4-10.2) mg/dL Total Bilirubin 1.6 H (0.2-1.3) mg/dL AST 22 (17-59) U/L ALT 24 (4-49) U/L Alkaline Phosphatase 70 (38-126) U/L Total Protein 6.2 L (6.3-8.2) g/dL Albumin 3.9 (3.5-5.0) g/dL Assessment and Plan Assessment: Acute cholecystitis, hyperbilirubinemia Plan: Patient has CT findings along with clinical findings consistent with acute cholecystitis. Patient also has hyperbilirubinemia, possibly from common bile duct stone. I did discuss with the patient he likely would need laparoscopic cholecystectomy. He has however anticoagulated his time with an INR 3.1. He also has hyperbilirubinemia 1.6. I discussed with the patient that we would continue nothing by mouth and IV antibiotics and follow-up with his labs tomorrow. Further recommendations to follow.
[2019-09-06 20:21] LABS: Glucose,Whole Blood 104 mg/dL (75-99)
[2019-09-07] MEDS: MORPHINE SULFATE 4 MG/ML SYRINGE IV PRN ×3 (04:57→14:09)
[2019-09-07] MEDS: traMADol 50 MG TAB PO PRN ×3 (05:05→19:34)
[2019-09-07 06:52] LABS: Glucose,Whole Blood 162 mg/dL (75-99)
[2019-09-07] MEDS: ATORVASTATIN 40 MG TAB PO SCH (07:52)
[2019-09-07] MEDS: ISOSORBIDE MONONITRATE ER 60 MG TAB.ER.24H PO SCH (07:52)
[2019-09-07] MEDS: ATENOLOL 25 MG TAB PO SCH (07:52)
[2019-09-07] MEDS: LISINOPRIL 5 MG TAB PO SCH (07:52)
[2019-09-07] MEDS: DOXAZOSIN 2 MG TAB PO SCH (07:53)
[2019-09-07] MEDS: SODIUM CHLORIDE 0.9% 1,000 ML IV SCH ×2 (07:54→19:35)
[2019-09-07] MEDS: INSULIN ASPART (NovoLOG) 100 UNIT/ML VIAL SQ SCH ×4 (07:56→21:17)
[2019-09-07] MEDS: PROPAFENONE 150 MG TAB PO SCH ×3 (07:57→19:34)
[2019-09-07 08:06] LABS: ALT 22 U/L (4-49); African American GFR (CKD) >90 (>60 ml/min/1.73 sqM); Albumin 3.6 g/dL (3.5-5.0); Anion Gap 10 mmol/L; Blood Urea Nitrogen 13 mg/dL (9-20); Calcium 9.3 mg/dL (8.4-10.2); Carbon Dioxide 23 mmol/L (22-30); Chloride 108 mmol/L (98-107); Glucose 146 mg/dL (74-99); Non-African American GFR(CKD) >90 (>60 ml/min/1.73 sqM); Sodium 141 mmol/L (137-145); Total Bilirubin 1.9 mg/dL (0.2-1.3); Total Protein 6.4 g/dL (6.3-8.2)
[2019-09-07 08:15] LABS: Basophils # (A) 0.2 k/uL (0-0.2); Basophils % (A) 1 %; Eosinophils # (A) 0.1 k/uL (0-0.7); Eosinophils % (A) 0 %; HCT 47.6 % (39.0-53.0); HGB 16.4 gm/dL (13.0-17.5); Lymphocytes # (A) 0.7 k/uL (1.0-4.8); Lymphocytes % (A) 4 %; MCH 32.5 pg (25.0-35.0); MCHC 34.4 g/dL (31.0-37.0); MCV 94.5 fL (80.0-100.0); Mean Platelet Volume 8.8; Monocytes # (A) 1.3 k/uL (0-1.0); Monocytes % (A) 8 %; Neutrophils # (A) 14.3 k/uL (1.3-7.7); Neutrophils % (A) 86 %; Platelet Count 130 k/uL (150-450); RBC 5.04 m/uL (4.30-5.90); RDW 13.1 % (11.5-15.5); WBC 16.6 k/uL (3.8-10.6)
[2019-09-07 08:17] LABS: AST 28 U/L (17-59); Alkaline Phosphatase 55 U/L (38-126); Potassium 3.6 mmol/L (3.5-5.1)
[2019-09-07] MEDS ORDERED: GLIMEPIRIDE 4 MG TAB PO SCH (09:00)
[2019-09-07] MEDS ORDERED: PANTOPRAZOLE 40 MG/10 ML VIAL IVP SCH (09:00)
[2019-09-07 09:01] LABS: INR 3.2 (<1.2); Prothrombin Time 31.1 sec (9.0-12.0)
--- NOTE | 2019-09-07 09:46 | P.CRDCN ---
History of Present Illness Consult date: 09/07/19 Requesting physician: Andrew Walker Reason for Consult (text): pre-op clearance Chief complaint: abdominal pain History of present illness: This is a pleasant 69-year-old gentleman who follows with Dr. Benedict in the office. He has a known history of paroxysmal atrial fibrillation, anticoagulated on Coumadin, mild CAD documented by coronary angiography in 2016, hypertension, diabetes mellitus, and hyperlipidemia. Presented to the hospital with complaints of severe abdominal discomfort that started on September 04. Computed tomography scan of the abdomen showed inflammation centered at the right upper quadrant with hydropic gallbladder and cholelithiasis, findings suggest acute cholecystitis, inflammation and mild fluid tracks down the right side of the abdomen, borderline AAA at 3.0 cm and mild to moderate circumferential bladder wall thickening which may represent chronic bladder hy pertrophy. EKG showed sinus rhythm. Patient was seen and examined by Dr. Ignacio who recommends a laparoscopic cholecystectomy. INR on admission was 3.1, today 3.2. Patient continues to have significant abdominal discomfort located mostly in the right upper quadrant with significant tenderness to palpation. Laboratory values show a white blood cell count of 16,600, BUN 13, creatinine 0.76, total bilirubin 1.9 with normal ALTs, AST and alkaline phosphatase and normal amylase and lipase. Mr. Vázquez has not had complaints of shortness of breath, chest discomfort, palpitations, orthopnea, PND, or edema. Current home medications include isosorbide 60 mg by mouth daily, enalapril 2.5 mg by mouth daily, atenolol 25 mg by mouth daily, Cardura 2 mg by mouth daily, Rythmol 150 mg by mouth 3 times a day, Coumadin 7.5 mg by mouth daily except for Sundays when he takes 10 mg, Lipitor 40 mg by mouth daily, metformin, Requip, Prilosec, Ultram and Amaryl. Past Medical History Past Medical History: Atrial Fibrillation, CVA/TIA, Diabetes Mellitus, Hyperlip idemia, Hypertension Additional Past Medical History / Comment(s): NIDDM, kidney stones History of Any Multi-Drug Resistant Organisms: None Reported Past Surgical History: No Surgical Hx Reported Additional Past Surgical History / Comment(s): 2008 normal heart cath, EGD/colonoscopy, R lower eyelid sx, R cataract removal, R foot bunionectomy. Past Anesthesia/Blood Transfusion Reactions: No Reported Reaction Past Psychological History: No Psychological Hx Reported Smoking Status: Current every day smoker Past Alcohol Use History: None Reported Past Drug Use History: None Reported - Past Family History Mother Family Medical History: Diabetes Mellitus Additional Family Medical History / Comment(s): Mother haad heart problems. Father History Unknown: Yes Additional Family Medical History / Comment(s): Pt does not know his father's health hx. Medications and Allergies Home Medications Medication Instructions Recorded Confirmed Type Atenolol 25 mg PO DAILY 04/02/16 09/06/19 History Doxazosin [Cardura] 2 mg PO DAILY 04/02/16 09/06/19 History Enalapril [Vasotec] 2.5 mg PO DAILY 04/02/16 09/06/19 History Isosorbide Mononitrate ER [Imdur] 60 mg PO DAILY 04/02/16 09/06/19 History Propafenone [Rythmol] 150 mg PO TID 04/02/16 09/06/19 History Warfarin [Coumadin] 7.5 mg PO MOTUWETHFRSA 04/02/16 09/06/19 History Omeprazole Magnesium [PriLOSEC OTC] 20 mg PO DAILY 07/06/17 09/06/19 History Glimepiride [Amaryl] 4 mg PO DAILY 04/17/19 09/06/19 History Multivitamins, Thera [Multivitamin 1 tab PO DAILY 04/17/19 09/06/19 History (formulary)] Warfarin Sodium [Coumadin] 10 mg PO CANCINO 04/17/19 09/06/19 History traMADol HCL [Ultram] 50 mg PO TID PRN 04/17/19 09/06/19 History Atorvastatin [Lipitor] 40 mg PO DAILY 09/06/19 09/06/19 History metFORMIN HCL 1,000 mg PO BID 09/06/19 09/06/19 History rOPINIRole HCL [Requip] 2 mg PO HS 09/06/19 09/06/19 History Allergies Allergy/AdvReac Type Severity Reaction Status Date / Time hydromorphone HCl AdvReac Hallucinati Verified 09/06/19 13:58 [From Dilaudid] ons Physical Exam Vitals: Vital Signs Temp Pulse Pulse Resp BP BP Pulse Ox 09/07/19 07:37 75 09/07/19 07:00 99.0 F 75 16 150/82 96 09/07/19 02:05 99.5 F 71 16 99/52 93 L 09/06/19 19:47 98.8 F 64 16 116/67 93 L 09/06/19 15:00 98 F 87 12 126/72 93 L 09/06/19 14:12 71 18 136/75 94 L 09/06/19 10:17 99.4 F 81 19 160/94 96 Intake and Output 09/06/19 09/07/19 09/07/19 22:59 06:59 14:59 Other: # Voids 2 Weight 102.058 kg PHYSICAL EXAMINATION: HEENT: Head is atraumatic, normocephalic. Pupils equal, round. Neck is supple. There is no elevated jugular venous pressure. HEART EXAMINATION: Heart sounds regular, S1 and S2 with a systolic murmur at the base. CHEST EXAMINATION: Lungs are clear to auscultation. No chest wall tenderness is noted on palpation or with deep breathing. ABDOMEN: Soft, significant tenderness right upper quadrant. Bowel sounds are heard. No organomegaly noted. EXTREMITIES: 2+ peripheral pulses with no evidence of peripheral edema and no calf tenderness noted. NEUROLOGIC patient is awake, alert and oriented x3. . Results 09/07/19 07:17 09/07/19 07:17 Cardiac Enzymes 09/06/19 09/07/19 Range/Units 11:00 07:17 AST 22 28 (17-59) U/L Coagulation 09/06/19 09/07/19 Range/Units 11:00 08:32 PT 31.2 H 31.1 H (9.0-12.0) sec APTT 40.6 H (22.0-30.0) sec CBC 09/06/19 09/07/19 Range/Units 11:00 07:17 WBC 16.1 H 16.6 H (3.8-10.6) k/uL RBC 4.96 5.04 (4.30-5.90) m/uL Hgb 16.5 16.4 (13.0-17.5) gm/dL Hct 46.0 47.6 (39.0-53.0) % Plt Count 152 130 L (150-450) k/uL Comprehensive Metabolic Panel 09/06/19 09/07/19 Range/Units 11:00 07:17 Sodium 137 141 (137-145) mmol/L Potassium 3.6 3.6 (3.5-5.1) mmol/L Chloride 104 108 H (98-107) mmol/L Carbon Dioxide 21 L 23 (22-30) mmol/L BUN 13 13 (9-20) mg/dL Creatinine 0.68 0.76 (0.66-1.25) mg/dL Glucose 292 H 146 H (74-99) mg/dL Calcium 10.0 9.3 (8.4-10.2) mg/dL AST 22 28 (17-59) U/L ALT 24 22 (4-49) U/L Alkaline Phosphatase 70 55 (38-126) U/L Total Protein 6.2 L 6.4 (6.3-8.2) g/dL Albumin 3.9 3.6 (3.5-5.0) g/dL Current Medications Generic Name Dose Route Start Last Admin Trade Name Freq PRN Reason Stop Dose Admin Acetaminophen 650 mg 09/06/19 13:11 Tylenol Tab PO Q6HR PRN Mild Pain or Fever > 100.5 Atenolol 25 mg 09/07/19 09:00 09/07/19 07:52 Tenormin PO 25 mg DAILY RODRIGUE Administration Atorvastatin Calcium 40 mg 09/07/19 09:00 09/07/19 07:52 Lipitor PO 40 mg DAILY RODRIGUE Administration Doxazosin Mesylate 2 mg 09/07/19 09:00 09/07/19 07:53 Cardura PO 2 mg DAILY RODRIGUE Administration Sodium Chloride 1,000 mls @ 60 mls/hr 09/06/19 13:15 09/07/19 07:54 Saline 0.9% IV 60 mls/hr .[id number] RODRIGUE Administration Ceftriaxone Sodium 1 gm/ 50 mls @ 100 mls/hr 09/07/19 09:00 09/07/19 07:53 Sodium Chloride IVPB 100 mls/hr Q24HR RODRIGUE Administration Insulin Aspart 0 unit 09/06/19 17:30 09/07/19 07:56 Novolog SQ 2 unit ACHS RODRIGUE Administration Protocol Isosorbide Mononitrate 60 mg 09/07/19 09:00 09/07/19 07:52 Imdur PO 60 mg DAILY RODRIGUE Administration Lisinopril 5 mg 09/07/19 09:00 09/07/19 07:52 Zestril PO 5 mg DAILY RODRIGUE Administration Morphine Sulfate 4 mg 09/06/19 13:11 09/07/19 08:49 Morphine Sulfate (Inj) IV 4 mg Q4HR PRN Administration Severe Pain Naloxone HCl 0.2 mg 09/06/19 13:11 Narcan IV Q2M PRN Opioid Reversal Ondansetron HCl 4 mg 09/06/19 13:11 Zofran IVP Q8HR PRN Nausea And Vomiting Pantoprazole Sodium 40 mg 09/07/19 09:00 09/07/19 07:53 Protonix IVP 40 mg DAILY RODRIGUE Administration Propafenone HCl 150 mg 09/06/19 16:00 09/07/19 07:57 Rythmol PO 150 mg TID RODRIGUE Administration Ropinirole HCl 2 mg 09/06/19 21:00 09/06/19 20:06 Requip PO 2 mg HS RODRIGUE Administration Tramadol HCl 50 mg 09/06/19 13:11 09/07/19 05:05 Ultram PO 50 mg Q6H PRN Administration Moderate Pain Intake and Output 09/06/19 09/07/19 09/07/19 22:59 06:59 14:59 Other: # Voids 2 Weight 102.058 kg 09/07/19 07:17 09/07/19 07:17 Assessment and Plan Assessment: #1 acute cholecystitis #2 paroxysmal atrial fibrillation, anticoagulated on warfarin #3 mild CAD #4 hypertension #5 hyperlipidemia #6 type 2 diabetes mellitus Plan: From medical recruiter perspective, we will obtain a 2-D echo with Doppler. Depending on the results patient should be ok to proceed with Lap Saima once INR is in an acceptable range. Continue cardiac medications perioperatively including atenolol, enalapril and Rythmol. Resume coumadin BRANDY post operatively. We will continue to follow the patient and provide further recommendations accordingly. [employer] DIRECTOR note has been reviewed, I agree with a documented findings and plan of care. Patient was seen and examined.
--- NOTE | 2019-09-07 10:24 | P.PN ---
Subjective Progress Note Date: 09/07/19 This is a 69-year-old male patient who presented with complaint of abdominal pain over the past 2 days. Patient reports that the pain started on 09/04 around 1 AM with sharp pain to lower abdomen and flank area. Patient reports mild nausea. Patient denies any vomiting or diarrhea. Patient does have a past medical history of atrial fibrillation which she is maintained on Coumadin, CVA, diabetes mellitus, hyperlipidemia, hypertension and nicotine dependence. CT of abdomen and pelvis completed showing inflammation centered at the right upper quadrant with hydropic gallbladder and cholelithiasis. Findings chest acute cholecystitis. Inflammation of mild fluid tracks on the right side of the ab domen. Borderline AAA at 3.0 cm mild to moderate superficial bladder wall thickening may represent chronic bladder hypertrophy correlate to exclude cystitis. White blood cell elevated at 16.1. INR 3.2. Lactic acid 2.1. At this time surgical and GI services have been consulted. Patient will be started on Rocephin. Coumadin will be held. On 09/07/2019 patient is alert and oriented 3. Cardiology services have been consulted for cardiac clearance prior to procedure. INR remains high at 3.2. Coumadin remains on hold. Surgical services have been consulted. Remains on Rocephin IV antibiotics. At this time patient is still having some abdominal pain. Patient denies chest pain or shortness breath. Patient denies nausea vomiting. Patient denies any urinary burning or frequency Objective - Vital Signs Vital signs: Vital Signs Temp 99.0 F 09/07/19 07:00 Pulse 75 09/07/19 07:37 Resp 16 09/07/19 07:00 BP 150/82 09/07/19 07:00 Pulse Ox 96 09/07/19 07:00 Intake & Output 09/06/19 09/07/19 09/07/19 18:59 06:59 18:59 Weight 102.058 kg Other: # Voids 2 - Exam Head normocephalic Neck supple Lungs clear to auscultation bilaterally no wheezing or crackles Heart irregular rhythm. known atrial fibrillation Abdomen is soft and rounded. Some tenderness to palpation to lower extremity and flank area Extremities no edema Neuro alert and orientated to 3 - Labs CBC & Chem 7: 09/07/19 07:17 09/07/19 07:17 Labs: Abnormal Lab Results - Last 24 Hours (Table) 09/06/19 09/06/19 09/06/19 Range/Units 11:00 11:00 11:00 WBC 16.1 H (3.8-10.6) k/uL Plt Count (150-450) k/uL Neutrophils # 14.1 H (1.3-7.7) k/uL Lymphocytes # 0.8 L (1.0-4.8) k/uL Monocytes # (0-1.0) k/uL PT (9.0-12.0) sec INR (<1.2) APTT (22.0-30.0) sec Chloride (98-107) mmol/L Carbon Dioxide 21 L (22-30) mmol/L Glucose 292 H (74-99) mg/dL POC Glucose (mg/dL) (75-99) mg/dL Plasma Lactic Acid Jose R 2.1 H* (0.7-2.0) mmol/L Total Bilirubin 1.6 H (0.2-1.3) mg/dL Total Protein 6.2 L (6.3-8.2) g/dL Urine Protein (Negative) Urine Glucose (UA) (Negative) Urine Blood (Negative) Urine Mucus (None) /hpf 09/06/19 09/06/19 09/06/19 Range/Units 11:00 11:50 15:10 WBC (3.8-10.6) k/uL Plt Count (150-450) k/uL Neutrophils # (1.3-7.7) k/uL Lymphocytes # (1.0-4.8) k/uL Monocytes # (0-1.0) k/uL PT 31.2 H (9.0-12.0) sec INR 3.2 H (<1.2) APTT 40.6 H (22.0-30.0) sec Chloride (98-107) mmol/L Carbon Dioxide (22-30) mmol/L Glucose (74-99) mg/dL POC Glucose (mg/dL) (75-99) mg/dL Plasma Lactic Acid Jose R 2.4 H* (0.7-2.0) mmol/L Total Bilirubin (0.2-1.3) mg/dL Total Protein (6.3-8.2) g/dL Urine Protein Trace H (Negative) Urine Glucose (UA) 4+ H (Negative) Urine Blood Trace H (Negative) Urine Mucus Rare H (None) /hpf 09/06/19 09/06/19 09/06/19 Range/Units 16:55 18:33 20:19 WBC (3.8-10.6) k/uL Plt Count (150-450) k/uL Neutrophils # (1.3-7.7) k/uL Lymphocytes # (1.0-4.8) k/uL Monocytes # (0-1.0) k/uL PT (9.0-12.0) sec INR (<1.2) APTT (22.0-30.0) sec Chloride (98-107) mmol/L Carbon Dioxide (22-30) mmol/L Glucose (74-99) mg/dL POC Glucose (mg/dL) 155 H 104 H (75-99) mg/dL Plasma Lactic Acid Jose R 2.1 H* (0.7-2.0) mmol/L Total Bilirubin (0.2-1.3) mg/dL Total Protein (6.3-8.2) g/dL Urine Protein (Negative) Urine Glucose (UA) (Negative) Urine Blood (Negative) Urine Mucus (None) /hpf 09/06/19 09/07/19 09/07/19 Range/Units 22:16 06:51 07:17 WBC 16.6 H (3.8-10.6) k/uL Plt Count 130 L (150-450) k/uL Neutrophils # 14.3 H (1.3-7.7) k/uL Lymphocytes # 0.7 L (1.0-4.8) k/uL Monocytes # 1.3 H (0-1.0) k/uL PT (9.0-12.0) sec INR (<1.2) APTT (22.0-30.0) sec Chloride (98-107) mmol/L Carbon Dioxide (22-30) mmol/L Glucose (74-99) mg/dL POC Glucose (mg/dL) 162 H (75-99) mg/dL Plasma Lactic Acid Jose R 0.6 L (0.7-2.0) mmol/L Total Bilirubin (0.2-1.3) mg/dL Total Protein (6.3-8.2) g/dL Urine Protein (Negative) Urine Glucose (UA) (Negative) Urine Blood (Negative) Urine Mucus (None) /hpf 09/07/19 09/07/19 Range/Units 07:17 08:32 WBC (3.8-10.6) k/uL Plt Count (150-450) k/uL Neutrophils # (1.3-7.7) k/uL Lymphocytes # (1.0-4.8) k/uL Monocytes # (0-1.0) k/uL PT 31.1 H (9.0-12.0) sec INR 3.2 H (<1.2) APTT (22.0-30.0) sec Chloride 108 H (98-107) mmol/L Carbon Dioxide (22-30) mmol/L Glucose 146 H (74-99) mg/dL POC Glucose (mg/dL) (75-99) mg/dL Plasma Lactic Acid Jose R (0.7-2.0) mmol/L Total Bilirubin 1.9 H (0.2-1.3) mg/dL Total Protein (6.3-8.2) g/dL Urine Protein (Negative) Urine Glucose (UA) (Negative) Urine Blood (Negative) Urine Mucus (None) /hpf Assessment and Plan Assessment: 1. Abdominal pain secondary to acute cholecystitis with leukocytosis and elevated lactic acid. Abdominal CT completed showing inflammation centered at the right upper quadrant with hydropic gallbladder and cholelithiasis. Findings suggest acute cholecystitis. Inflammation mild fluid tracks down the right side of the abdomen. Borderline AAA at 3.0 cm mild to moderate superficial bladder wall thickening may represent chronic bladder hypertrophy correlate to exclude cystitis. Patient started on Rocephin. Surgical and GI services have been consulted. Lactic 0.6 2. History of paroxysmal atrial fibrillation. Continue Coumadin. INR 3.2 Coumadin on hold for possible surgical intervention. Cardiology services have been consulted for cardiac clearance 2-D echo has been ordered 3. History of CVA 4. History of diabetes mellitus type 2. sliding scale coverage ordered 5. Hyperlipidemia. Maintained on statin 6. History of essential hypertension DVT prophylaxis SCDs. GI prophylaxis Protonix GI and surgical service consulted Rocephin for IV antibiotics. Patient currently nothing by mouth Coumadin on hold Cardiology services have been consulted for cardiac clearance I performed an examination of the patient and discussed their management with the Nurse Practitioner. I have reviewed the Nurse Practitioner's notes and agree with the documented findings and plan of care
[2019-09-07 11:46] LABS: Glucose,Whole Blood 130 mg/dL (75-99)
--- NOTE | 2019-09-07 14:01 | P.PN ---
Subjective Progress Note Date: 09/07/19 Patient still having some abdominal pain today. He does state that he is hungry and he wants to eat. He did have an increase in his INR overnight. Patient also had an increase in his total bilirubin. Objective - Vital Signs Vital signs: Vital Signs Temp 99.0 F 09/07/19 07:00 Pulse 75 09/07/19 07:37 Resp 16 09/07/19 07:00 BP 150/82 09/07/19 07:00 Pulse Ox 96 09/07/19 07:00 Intake & Output 09/06/19 09/07/19 09/07/19 18:59 06:59 18:59 Weight 102.058 kg Other: # Voids 2 - Constitutional General appearance: Present: cooperative - Respiratory Details: Nonlabored - Gastrointestinal Gastrointestinal Comment(s): Soft nondistended tender to palpation in the right upper quadrant - Psychiatric Psychiatric: Present: A&O x's 3 - Labs CBC & Chem 7: 09/07/19 07:17 09/07/19 07:17 Labs: Abnormal Lab Results - Last 24 Hours (Table) 09/06/19 09/06/19 09/06/19 Range/Units 15:10 16:55 18:33 WBC (3.8-10.6) k/uL Plt Count (150-450) k/uL Neutrophils # (1.3-7.7) k/uL Lymphocytes # (1.0-4.8) k/uL Monocytes # (0-1.0) k/uL PT (9.0-12.0) sec INR (<1.2) Chloride (98-107) mmol/L Glucose (74-99) mg/dL POC Glucose (mg/dL) 155 H (75-99) mg/dL Plasma Lactic Acid Jose R 2.4 H* 2.1 H* (0.7-2.0) mmol/L Total Bilirubin (0.2-1.3) mg/dL 09/06/19 09/06/19 09/07/19 Range/Units 20:19 22:16 06:51 WBC (3.8-10.6) k/uL Plt Count (150-450) k/uL Neutrophils # (1.3-7.7) k/uL Lymphocytes # (1.0-4.8) k/uL Monocytes # (0-1.0) k/uL PT (9.0-12.0) sec INR (<1.2) Chloride (98-107) mmol/L Glucose (74-99) mg/dL POC Glucose (mg/dL) 104 H 162 H (75-99) mg/dL Plasma Lactic Acid Jose R 0.6 L (0.7-2.0) mmol/L Total Bilirubin (0.2-1.3) mg/dL 09/07/19 09/07/19 09/07/19 Range/Units 07:17 07:17 08:32 WBC 16.6 H (3.8-10.6) k/uL Plt Count 130 L (150-450) k/uL Neutrophils # 14.3 H (1.3-7.7) k/uL Lymphocytes # 0.7 L (1.0-4.8) k/uL Monocytes # 1.3 H (0-1.0) k/uL PT 31.1 H (9.0-12.0) sec INR 3.2 H (<1.2) Chloride 108 H (98-107) mmol/L Glucose 146 H (74-99) mg/dL POC Glucose (mg/dL) (75-99) mg/dL Plasma Lactic Acid Jose R (0.7-2.0) mmol/L Total Bilirubin 1.9 H (0.2-1.3) mg/dL 09/07/19 Range/Units 11:44 WBC (3.8-10.6) k/uL Plt Count (150-450) k/uL Neutrophils # (1.3-7.7) k/uL Lymphocytes # (1.0-4.8) k/uL Monocytes # (0-1.0) k/uL PT (9.0-12.0) sec INR (<1.2) Chloride (98-107) mmol/L Glucose (74-99) mg/dL POC Glucose (mg/dL) 130 H (75-99) mg/dL Plasma Lactic Acid Jose R (0.7-2.0) mmol/L Total Bilirubin (0.2-1.3) mg/dL Assessment and Plan Assessment: Acute cholecystitis, hyperbilirubinemia Plan: Patient has increasing total bilirubin. Follow-up GI Jacinto. Continue IV antib iotics. Follow-up cardiology recommendations. Continue to hold Coumadin.
[2019-09-07] MEDS ORDERED: PHYTONADIONE 10 MG in SODIUM CHLORIDE 0.9% 50 ML IVPB STA (15:13)
[2019-09-07] MEDS: metroNIDAZOLE-NS PMX 500 MG in SALINE 1 100ML.BAG IVPB SCH (16:29)
[2019-09-07 16:46] LABS: Glucose,Whole Blood 174 mg/dL (75-99)
--- NOTE | 2019-09-07 19:00 | ECHOF ---
Referral Reason:clearence for surgery MEASUREMENTS -------- HEIGHT: 177.8 cm WEIGHT: 102.1 kg BP: RVIDd: 3.6 cm (< 3.3) IVSd: 1.1 cm (0.6 - 1.1) LVIDd: 4.3 cm (3.9 - 5.3) LVPWd: 1.2 cm (0.6 - 1.1) IVSs: 1.4 cm LVIDs: 3.0 cm LVPWs: 1.2 cm LAESV Index (A-L): 21.76 ml/m Ao Diam: 2.8 cm (2.0 - 3.7) AV Cusp: 2.5 cm (1.5 - 2.6) LA Diam: 4.4 cm (2.7 - 3.8) MV EXCURSION: 18.072 mm (> 18.000) MV EF SLOPE: 88 mm/s (70 - 150) EPSS: 1.3 cm MV E Otis: 0.67 m/s MV DecT: 189 ms MV A Otis: 0.59 m/s MV E/A Ratio: 1.14 RAP: 5.00 mmHg RVSP: 32.38 mmHg FINDINGS -------- Sinus rhythm. This was a technically difficult study with suboptimal apical views. The left ventricular size is normal. There is mild concentric left ventricular hypertrophy. Overa ll left ventricular systolic function is low-normal with, an EF between 50 - 55 %. The diastolic fi lling pattern is normal for the age of the patient 7.23. The right ventricle is mildly enlarged. Normal LA size by volume 22+/-6 ml/m2. The right atrial size is normal. 5.0mg of Lumason was utilized for enhancement of images Interatrial and interventricular septum intact. The aortic valve is trileaflet, and appears structurally normal. No aortic stenosis or regurgitation. Mild mitral annular calcification present. Mild mitral regurgitation is present. Mild tricuspid regurgitation present. Right ventricular systolic pressure is normal at < 35 mmHg. The right ventricular systolic pressure, as measured by Doppler, is 32.38mmHg. There is no pulmonic regurgitation present. The aortic root size is normal. IVC Not well visulized. There is a small, generalized pericardial effusion present. CONCLUSIONS -------- 1. Sinus rhythm. 2. This was a technically difficult study with suboptimal apical views. 3. The left ventricular size is normal. 4. There is mild concentric left ventricular hypertrophy. 5. Overall left ventricular systolic function is low-normal with, an EF between 50 - 55 %. 6. The diastolic filling pattern is normal for the age of the patient 7.23 7. Normal LA size by volume 22+/-6 ml/m2. 8. 5.0mg of Lumason was utilized for enhancement of images 9. The aortic valve is trileaflet, and appears structurally normal. No aortic stenosis or regurgitati on. 10. Mild mitral regurgitation is present. 11. Mild tricuspid regurgitation present. 12. Right ventricular systolic pressure is normal at < 35 mmHg. 13. There is no pulmonic regurgitation present. 14. IVC Not well visulized. 15. There is a small, generalized pericardial effusion present. [employer] EGG PACKER: Maria Esther Cuellar RDCS
--- NOTE | 2019-09-07 20:05 | CONS ---
CONSULTATION DATE OF DICTATION: 09/07/2019 REASON FOR CONSULTATION: Acute abdominal pain and elevated bilirubin. HISTORY OF PRESENT ILLNESS: The patient is a 69-year-old pleasant white male admitted to the hospital with acute onset of severe epigastric and right upper quadrant abdominal pain that started at about 1 a.m. last night. The pain was intense, associated with nausea but no emesis. He had some chills but no fever. He came to the emergency room and subsequently had a CT of the abdomen and pelvis done that showed a hydropic gallbladder with thickening consistent with acute cholecystitis. Dr. Ignacio had seen the patient and plans for a laparoscopic cholecystectomy soon. The patient has a history of atrial fibrillation, on Coumadin, and INR is 3.2 today. He was also noted to have mild elevation of T- bilirubin, but normal ALT and AST. Because of clinical suspicion for CBD stone, we are consulted. The patient is doing much better. Abdominal pain has improved. He is on broad-spectrum antibiotics, feeling better. PAST MEDICAL HISTORY: 1. Atrial fibrillation, on Coumadin. 2. Diabetes mellitus. 3. Hypertension. 4. Hyperlipidemia. PAST SURGICAL HISTORY: 1. EGD. 2. Colonoscopy in the past. 3. Cataract removal. 4. Right foot bunionectomy. MEDICATIONS: Medications at home include: 1. Coumadin. 2. Atenolol. 3. Cardura. 4. Vasotec. 5. Imdur. 6. Rythmol. 7. Prilosec. 8. Amaryl. 9. Multivitamin. 10.Ultram. 11.Lipitor. 12.Requip. 13.Metformin. ALLERGIES: DILAUDID. SOCIAL HISTORY: Chronic smoker. No alcohol use. FAMILY HISTORY: Mother had diabetes mellitus and father's history is unknown. REVIEW OF SYSTEMS: CARDIOPULMONARY: No chest pain or shortness of breath. GENITOURINARY: No dysuria or hematuria. MUSCULOSKELETAL: Unremarkable. SKIN: Unremarkable. ENDOCRINE: Unremarkable. PSYCHIATRIC: Unremarkable. NEUROLOGY: Unremarkable. ENT/VISION: Unremarkable. CONSTITUTIONAL: No recent weight loss. No fever, chills, night sweats. PHYSICAL EXAMINATION: Blood pressure 129/70, pulse rate 73, temperature 98.4. HEENT examination unremarkable. Conjunctivae pink. Sclerae anicteric. Oral cavity no lesions. NECK: No JVD or lymph node enlargement. CHEST: Clear to auscultation. HEART: Regular rate and rhythm. ABDOMEN: Soft. Mild tenderness in the epigastric and right upper quadrant area. No rebound or rigidity. EXTREMITIES: No pedal edema. SKIN: No rashes. NEUROLOGIC: Alert and oriented x3. No focal deficits. LABS: Labs from yesterday showed WBC 16.1. Today it is 16.6, platelets 130. INR 3.2. ALT and AST are normal. Alkaline phosphatase is normal. Bilirubin is 1.9. Yesterday it was 1.6. Amylase and lipase are normal. IMPRESSION: 1. This is a patient who presents to the hospital with acute onset of severe epigastric and right upper quadrant abdominal pain that started around midnight last night, associated with some nausea but no emesis. He has leukocytosis. CT of the abdomen showed hydrops of the gallbladder with thickening of the gallbladder, all consistent with acute cholecystitis. He was evaluated by Dr. Ignacio and plans on cholecystectomy soon. 2. Mild elevation of bilirubin at 1.9 with normal serum transaminases and normal alkaline phosphatase. CT of the abdomen did not show any evidence of biliary ductal dilation. Doubt CBD stone in the absence of elevated serum transaminases. However, we will fractionate the bilirubin to see if we are dealing with direct or indirect hyperbilirubinemia. 3. Atrial fibrillation, on Coumadin. Currently on hold. INR is 3.2. RECOMMENDATIONS: 1. Fractionate the bilirubin. 2. Continue with broad-spectrum antibiotics. 3. Repeat serum transaminases tomorrow morning. 4. Based on the labs, we will consider if he needs any endoscopic intervention. Thank you for this consultation. MMODL / IJN: [id number] /
[2019-09-07 21:11] LABS: Glucose,Whole Blood 140 mg/dL (75-99)
[2019-09-08] MEDS: metroNIDAZOLE-NS PMX 500 MG in SALINE 1 100ML.BAG IVPB SCH ×4 (00:39→23:55)
[2019-09-08] MEDS: ONDANSETRON 4 MG/2 ML VIAL IVP PRN (03:03)
[2019-09-08] MEDS: MORPHINE SULFATE 4 MG/ML SYRINGE IV PRN ×4 (03:03→15:45)
[2019-09-08 07:17] LABS: Glucose,Whole Blood 146 mg/dL (75-99)
[2019-09-08 07:29] LABS: Basophils % (A) 0 %; Eosinophils # (A) 0.1 k/uL (0-0.7); Eosinophils % (A) 0 %; HCT 44.1 % (39.0-53.0); HGB 15.1 gm/dL (13.0-17.5); Lymphocytes # (A) 0.6 k/uL (1.0-4.8); Lymphocytes % (A) 5 %; MCH 32.3 pg (25.0-35.0); MCHC 34.2 g/dL (31.0-37.0); MCV 94.5 fL (80.0-100.0); Mean Platelet Volume 8.3; Monocytes % (A) 8 %; Neutrophils # (A) 10.6 k/uL (1.3-7.7); Neutrophils % (A) 85 %; Platelet Count 135 k/uL (150-450); RBC 4.67 m/uL (4.30-5.90); RDW 12.9 % (11.5-15.5); WBC 12.5 k/uL (3.8-10.6)
[2019-09-08] MEDS: INSULIN ASPART (NovoLOG) 100 UNIT/ML VIAL SQ SCH ×4 (07:35→21:19)
[2019-09-08 07:50] LABS: INR 1.2 (<1.2); Prothrombin Time 12.7 sec (9.0-12.0)
[2019-09-08 07:51] LABS: ALT 21 U/L (4-49); AST 21 U/L (17-59); African American GFR (CKD) >90 (>60 ml/min/1.73 sqM); Albumin 3.2 g/dL (3.5-5.0); Alkaline Phosphatase 76 U/L (38-126); Anion Gap 12 mmol/L; Blood Urea Nitrogen 16 mg/dL (9-20); Calcium 8.9 mg/dL (8.4-10.2); Carbon Dioxide 21 mmol/L (22-30); Chloride 110 mmol/L (98-107); Glucose 147 mg/dL (74-99); Non-African American GFR(CKD) >90 (>60 ml/min/1.73 sqM); Potassium 3.3 mmol/L (3.5-5.1); Sodium 143 mmol/L (137-145); Total Bilirubin 2.4 mg/dL (0.2-1.3); Total Protein 5.7 g/dL (6.3-8.2)
[2019-09-08] MEDS: ISOSORBIDE MONONITRATE ER 60 MG TAB.ER.24H PO SCH (09:03)
[2019-09-08] MEDS: ATENOLOL 25 MG TAB PO SCH (09:03)
[2019-09-08] MEDS: PROPAFENONE 150 MG TAB PO SCH ×3 (09:03→20:18)
[2019-09-08] MEDS: LISINOPRIL 5 MG TAB PO SCH (09:04)
[2019-09-08] MEDS: DOXAZOSIN 2 MG TAB PO SCH (09:04)
[2019-09-08] MEDS: PANTOPRAZOLE 40 MG TABLET PO SCH (09:05)
[2019-09-08] MEDS: ATORVASTATIN 40 MG TAB PO SCH (09:05)
[2019-09-08 11:16] LABS: Bilirubin,Unconjugated 1.4 mg/dL (0.0-1.1)
[2019-09-08 11:34] LABS: Glucose,Whole Blood 129 mg/dL (75-99)
--- NOTE | 2019-09-08 12:44 | P.PN ---
Subjective Progress Note Date: 09/08/19 Principal diagnosis: Cholecystitis The patient was admitted with acute cholecystitis. He continues to have right upper quadrant pain. The patient was seen and cleared by cardiology. His INR is down to 1.2 today. Objective - Vital Signs Vital signs: Vital Signs Temp 98.4 F 09/08/19 07:00 Pulse 72 09/08/19 08:56 Resp 18 09/08/19 07:40 BP 149/75 09/08/19 08:56 Pulse Ox 91 L 09/08/19 07:00 Intake & Output 09/07/19 09/08/19 09/08/19 18:59 06:59 18:59 Intake Total 810 480 Balance 810 480 Intake: Intake, IV Titration 760 480 Amount Sodium Chloride 0.9% 1, 660 480 000 ml @ 60 mls/hr IV . [id number] [facility] Rx#:[id number] metroNIDAZOLE-NS PMX 500 100 mg In Saline 1 100ml.bag @ 100 mls/hr IVPB Q8HR [facility]IGUE Rx#:[id number] Oral 50 Other: Voiding Method Toilet Toilet # Voids 1 2 2 - Constitutional General appearance: Present: cooperative, no acute distress - Gastrointestinal General gastrointestinal: Present: distended (Softly distended), normal bowel sounds, soft, tenderness (Right upper quadrant) - Labs CBC & Chem 7: 09/08/19 07:06 09/08/19 07:06 Labs: Abnormal Lab Results - Last 24 Hours (Table) 09/07/19 09/07/19 09/08/19 Range/Units 16:44 21:10 06:52 WBC (3.8-10.6) k/uL Plt Count (150-450) k/uL Neutrophils # (1.3-7.7) k/uL Lymphocytes # (1.0-4.8) k/uL PT (9.0-12.0) sec INR (<1.2) Potassium (3.5-5.1) mmol/L Chloride (98-107) mmol/L Carbon Dioxide (22-30) mmol/L Glucose (74-99) mg/dL POC Glucose (mg/dL) 174 H 140 H 146 H (75-99) mg/dL Total Bilirubin (0.2-1.3) mg/dL Unconjugated Bilirubin (0.0-1.1) mg/dL Delta Bilirubin (0.0-0.2) mg/dL Total Protein (6.3-8.2) g/dL Albumin (3.5-5.0) g/dL 09/08/19 09/08/19 09/08/19 Range/Units 07:06 07:06 07:06 WBC 12.5 H (3.8-10.6) k/uL Plt Count 135 L (150-450) k/uL Neutrophils # 10.6 H (1.3-7.7) k/uL Lymphocytes # 0.6 L (1.0-4.8) k/uL PT 12.7 H (9.0-12.0) sec INR 1.2 H (<1.2) Potassium 3.3 L (3.5-5.1) mmol/L Chloride 110 H (98-107) mmol/L Carbon Dioxide 21 L (22-30) mmol/L Glucose 147 H (74-99) mg/dL POC Glucose (mg/dL) (75-99) mg/dL Total Bilirubin 2.4 H (0.2-1.3) mg/dL Unconjugated Bilirubin 1.4 H (0.0-1.1) mg/dL Delta Bilirubin 1.0 H (0.0-0.2) mg/dL Total Protein 5.7 L (6.3-8.2) g/dL Albumin 3.2 L (3.5-5.0) g/dL 09/08/19 Range/Units 11:32 WBC (3.8-10.6) k/uL Plt Count (150-450) k/uL Neutrophils # (1.3-7.7) k/uL Lymphocytes # (1.0-4.8) k/uL PT (9.0-12.0) sec INR (<1.2) Potassium (3.5-5.1) mmol/L Chloride (98-107) mmol/L Carbon Dioxide (22-30) mmol/L Glucose (74-99) mg/dL POC Glucose (mg/dL) 129 H (75-99) mg/dL Total Bilirubin (0.2-1.3) mg/dL Unconjugated Bilirubin (0.0-1.1) mg/dL Delta Bilirubin (0.0-0.2) mg/dL Total Protein (6.3-8.2) g/dL Albumin (3.5-5.0) g/dL Assessment and Plan (1) Acute cholecystitis Current Visit: Yes Status: Acute Code(s): K81.0 - ACUTE CHOLECYSTITIS SNOMED Code(s): 99109041 (2) Uncontrolled diabetes mellitus Current Visit: No Status: Acute Code(s): E11.65 - TYPE 2 DIABETES MELLITUS WITH HYPERGLYCEMIA SNOMED Code(s): 88054892 (3) Unstable angina Current Visit: No Status: Acute Code(s): I20.0 - UNSTABLE ANGINA SNOMED Code(s): 0381894 Plan: The INR has normalized and the patient has been cleared for surgery. Since his having persistent pain we'll proceed with laparoscopic cholecystectomy. The procedure, risks, complications were discussed. Questions were encouraged and answered. I'll do this for him tomorrow.
--- NOTE | 2019-09-08 13:54 | P.PN ---
Subjective Progress Note Date: 09/08/19 This is a 69-year-old male patient who presented with complaint of abdominal pain over the past 2 days. Patient reports that the pain started on 09/04 around 1 AM with sharp pain to lower abdomen and flank area. Patient reports mild nausea. Patient denies any vomiting or diarrhea. Patient does have a past medical history of atrial fibrillation which she is maintained on Coumadin, CVA, diabetes mellitus, hyperlipidemia, hypertension and nicotine dependence. CT of abdomen and pelvis completed showing inflammation centered at the right upper quadrant with hydropic gallbladder and cholelithiasis. Findings chest acute cholecystitis. Inflammation of mild fluid tracks on the right side of the ab domen. Borderline AAA at 3.0 cm mild to moderate superficial bladder wall thickening may represent chronic bladder hypertrophy correlate to exclude cystitis. White blood cell elevated at 16.1. INR 3.2. Lactic acid 2.1. At this time surgical and GI services have been consulted. Patient will be started on Rocephin. Coumadin will be held. On 09/07/2019 patient is alert and oriented 3. Cardiology services have been consulted for cardiac clearance prior to procedure. INR remains high at 3.2. Coumadin remains on hold. Surgical services have been consulted. Remains on Rocephin IV antibiotics. At this time patient is still having some abdominal pain. Patient denies chest pain or shortness breath. Patient denies nausea vomiting. Patient denies any urinary burning or frequency On 09/08/2019 patient was seen and examined on the medical floor he is alert and oriented 3 in no apparent distress he is still complaining of pain in the right upper quadrant otherwise he denies any complaints there is no fever or chills no headache or dizziness no chest pain no shortness of breath no cough no nausea or vomiting no diarrhea no burning was urination no frequency or urgency and no h ematuria Objective - Vital Signs Vital signs: Vital Signs Temp 98.4 F 09/08/19 07:00 Pulse 72 09/08/19 08:56 Resp 18 09/08/19 07:40 BP 149/75 09/08/19 08:56 Pulse Ox 91 L 09/08/19 07:00 Intake & Output 09/07/19 09/08/19 09/08/19 18:59 06:59 18:59 Intake Total 810 480 Balance 810 480 Intake: Intake, IV Titration 760 480 Amount Sodium Chloride 0.9% 1, 660 480 000 ml @ 60 mls/hr IV . [id number] [facility] Rx#:[id number] metroNIDAZOLE-NS PMX 500 100 mg In Saline 1 100ml.bag @ 100 mls/hr IVPB Q8HR [facility] Rx#:[id number] Oral 50 Other: Voiding Method Toilet Toilet # Voids 1 2 2 - Exam In general patient is alert and oriented 3 in no apparent distress Head normocephalic and atraumatic Neck supple no JVD no goiter Lungs clear to auscultation bilaterally no wheezing or crackles Heart irregular rhythm. known atrial fibrillation Abdomen is soft with tenderness in the right upper quadrant no organomegaly no palpable masses was normal bowel sounds Extremities no edema no cyanosis or clubbing Neuro no gross focal neurological deficit - Labs CBC & Chem 7: 09/08/19 07:06 09/08/19 07:06 Labs: Abnormal Lab Results - Last 24 Hours (Table) 09/07/19 09/07/19 09/08/19 Range/Units 16:44 21:10 06:52 WBC (3.8-10.6) k/uL Plt Count (150-450) k/uL Neutrophils # (1.3-7.7) k/uL Lymphocytes # (1.0-4.8) k/uL PT (9.0-12.0) sec INR (<1.2) Potassium (3.5-5.1) mmol/L Chloride (98-107) mmol/L Carbon Dioxide (22-30) mmol/L Glucose (74-99) mg/dL POC Glucose (mg/dL) 174 H 140 H 146 H (75-99) mg/dL Total Bilirubin (0.2-1.3) mg/dL Unconjugated Bilirubin (0.0-1.1) mg/dL Delta Bilirubin (0.0-0.2) mg/dL Total Protein (6.3-8.2) g/dL Albumin (3.5-5.0) g/dL 09/08/19 09/08/19 09/08/19 Range/Units 07:06 07:06 07:06 WBC 12.5 H (3.8-10.6) k/uL Plt Count 135 L (150-450) k/uL Neutrophils # 10.6 H (1.3-7.7) k/uL Lymphocytes # 0.6 L (1.0-4.8) k/uL PT 12.7 H (9.0-12.0) sec INR 1.2 H (<1.2) Potassium 3.3 L (3.5-5.1) mmol/L Chloride 110 H (98-107) mmol/L Carbon Dioxide 21 L (22-30) mmol/L Glucose 147 H (74-99) mg/dL POC Glucose (mg/dL) (75-99) mg/dL Total Bilirubin 2.4 H (0.2-1.3) mg/dL Unconjugated Bilirubin 1.4 H (0.0-1.1) mg/dL Delta Bilirubin 1.0 H (0.0-0.2) mg/dL Total Protein 5.7 L (6.3-8.2) g/dL Albumin 3.2 L (3.5-5.0) g/dL 09/08/19 Range/Units 11:32 WBC (3.8-10.6) k/uL Plt Count (150-450) k/uL Neutrophils # (1.3-7.7) k/uL Lymphocytes # (1.0-4.8) k/uL PT (9.0-12.0) sec INR (<1.2) Potassium (3.5-5.1) mmol/L Chloride (98-107) mmol/L Carbon Dioxide (22-30) mmol/L Glucose (74-99) mg/dL POC Glucose (mg/dL) 129 H (75-99) mg/dL Total Bilirubin (0.2-1.3) mg/dL Unconjugated Bilirubin (0.0-1.1) mg/dL Delta Bilirubin (0.0-0.2) mg/dL Total Protein (6.3-8.2) g/dL Albumin (3.5-5.0) g/dL Assessment and Plan Plan: 1. Abdominal pain secondary to acute cholecystitis with leukocytosis and elevated lactic acid. Abdominal CT completed showing inflammation centered at the right upper quadrant with hydropic gallbladder and cholelithiasis. Findings suggest acute cholecystitis. Inflammation mild fluid tracks down the right side of the abdomen. Borderline AAA at 3.0 cm mild to moderate superficial bladder wall thickening may represent chronic bladder hypertrophy correlate to exclude cystitis. Patient started on Rocephin. Surgical and GI services have been consulted. Lactic 0.6 2. History of paroxysmal atrial fibrillation. Continue Coumadin. INR 3.2 Coumadin on hold for possible surgical intervention. Cardiology services have been consulted for cardiac clearance 2-D echo has been ordered 3. History of CVA 4. History of diabetes mellitus type 2. sliding scale coverage ordered 5. Hyperlipidemia. Maintained on statin 6. History of essential hypertension DVT prophylaxis SCDs. GI prophylaxis Protonix GI and surgical service consulted Rocephin for IV antibiotics. Patient currently nothing by mouth Coumadin on hold Cardiology services have been consulted for cardiac clearance. Patient was cleared by cardiology his INR is down to 1.2 Patient was reevaluated by surgery and he is scheduled for laparoscopic cholecystectomy tomorrow
--- NOTE | 2019-09-08 14:12 | PN ---
PROGRESS NOTE Mr. Vázquez is resting comfortably, doing well at this time. He is going for a gallbladder surgery with acute cholecystitis. His INR is down to 1.2. The patient's LV function on echo is well preserved. I am recommending that he can proceed with surgery with moderate risk. Advised cautious fluid administration and optimal blood pressure control perioperatively and resume his Coumadin as soon as possible after the operation. To continue all his medications including beta morena up until the surgery and resume them promptly thereafter. Vital signs stable. S1-S2 heard normally. Lungs are clear. Abdomen is soft. The rest of physical examination is unchanged. I discussed my thoughts in detail with Dr. Terra Willard, who plans to do surgery tomorrow. MMODL / IJN: [id number] /
[2019-09-08] MEDS: SODIUM CHLORIDE 0.9% 1,000 ML IV SCH ×2 (15:48→20:19)
[2019-09-08 16:57] LABS: Glucose,Whole Blood 110 mg/dL (75-99)
[2019-09-08] MEDS: traMADol 50 MG TAB PO PRN (20:18)
[2019-09-08 20:56] LABS: Glucose,Whole Blood 243 mg/dL (75-99)
--- NOTE | 2019-09-08 22:30 | P.PN ---
Subjective Progress Note Date: 09/08/19 Principal diagnosis: Acute cholecystitis, elevated liver enzymes Patient seen sitting bedside. So reporting abdominal pain. No nausea or vomiting. Objective - Vital Signs Vital signs: Vital Signs Temp 98.4 F 09/08/19 07:00 Pulse 72 09/08/19 08:56 Resp 18 09/08/19 07:40 BP 149/75 09/08/19 08:56 Pulse Ox 91 L 09/08/19 07:00 Intake & Output 09/07/19 09/08/19 09/08/19 18:59 06:59 18:59 Intake Total 810 480 Balance 810 480 Intake: Intake, IV Titration 760 480 Amount Sodium Chloride 0.9% 1, 660 480 000 ml @ 60 mls/hr IV . [id number] [facility] Rx#:[id number] metroNIDAZOLE-NS PMX 500 100 mg In Saline 1 100ml.bag @ 100 mls/hr IVPB Q8HR [facility] Rx#:[id number] Oral 50 Other: Voiding Method Toilet Toilet # Voids 1 2 2 - Exam On physical examination, patient appears comfortable in no apparent distress. HEAD: Normocephalic, atraumatic. EYES: No scleral icterus. No conjunctival injection. MOUTH: No lesions, tongue midline. NECK: Trachea midline, no gross abnormalities. ABDOMEN: Soft, obese. Bowel sounds are positive. No organomegaly. No guarding or rigidity, with moderate tenderness to palpation predominantly in the upper abdomen. EXTREMITIES: No pedal edema. SKIN: No rashes, no jaundice. NEUROLOGIC: Alert and oriented x3. No focal deficits. - Labs CBC & Chem 7: 09/08/19 07:06 09/08/19 07:06 Labs: Abnormal Lab Results - Last 24 Hours (Table) 09/07/19 09/07/19 09/08/19 Range/Units 16:44 21:10 06:52 WBC (3.8-10.6) k/uL Plt Count (150-450) k/uL Neutrophils # (1.3-7.7) k/uL Lymphocytes # (1.0-4.8) k/uL PT (9.0-12.0) sec INR (<1.2) Potassium (3.5-5.1) mmol/L Chloride (98-107) mmol/L Carbon Dioxide (22-30) mmol/L Glucose (74-99) mg/dL POC Glucose (mg/dL) 174 H 140 H 146 H (75-99) mg/dL Total Bilirubin (0.2-1.3) mg/dL Unconjugated Bilirubin (0.0-1.1) mg/dL Delta Bilirubin (0.0-0.2) mg/dL Total Protein (6.3-8.2) g/dL Albumin (3.5-5.0) g/dL 09/08/19 09/08/19 09/08/19 Range/Units 07:06 07:06 07:06 WBC 12.5 H (3.8-10.6) k/uL Plt Count 135 L (150-450) k/uL Neutrophils # 10.6 H (1.3-7.7) k/uL Lymphocytes # 0.6 L (1.0-4.8) k/uL PT 12.7 H (9.0-12.0) sec INR 1.2 H (<1.2) Potassium 3.3 L (3.5-5.1) mmol/L Chloride 110 H (98-107) mmol/L Carbon Dioxide 21 L (22-30) mmol/L Glucose 147 H (74-99) mg/dL POC Glucose (mg/dL) (75-99) mg/dL Total Bilirubin 2.4 H (0.2-1.3) mg/dL Unconjugated Bilirubin 1.4 H (0.0-1.1) mg/dL Delta Bilirubin 1.0 H (0.0-0.2) mg/dL Total Protein 5.7 L (6.3-8.2) g/dL Albumin 3.2 L (3.5-5.0) g/dL 09/08/19 Range/Units 11:32 WBC (3.8-10.6) k/uL Plt Count (150-450) k/uL Neutrophils # (1.3-7.7) k/uL Lymphocytes # (1.0-4.8) k/uL PT (9.0-12.0) sec INR (<1.2) Potassium (3.5-5.1) mmol/L Chloride (98-107) mmol/L Carbon Dioxide (22-30) mmol/L Glucose (74-99) mg/dL POC Glucose (mg/dL) 129 H (75-99) mg/dL Total Bilirubin (0.2-1.3) mg/dL Unconjugated Bilirubin (0.0-1.1) mg/dL Delta Bilirubin (0.0-0.2) mg/dL Total Protein (6.3-8.2) g/dL Albumin (3.5-5.0) g/dL Assessment and Plan (1) Acute cholecystitis Narrative/Plan: 69-year-old male with multiple medical comorbidities presenting to the hospital due to [place] of abdominal pain found to have acute cholecystitis for which she is currently receiving treatment. Current Visit: Yes Status: Acute Code(s): K81.0 - ACUTE CHOLECYSTITIS SNOMED Code(s): 67892049 (2) Abdominal pain Current Visit: Yes Status: Acute Code(s): R10.9 - UNSPECIFIED ABDOMINAL PAIN SNOMED Code(s): 96566626 Plan: Supportive care Diet per surgical service Nothing by mouth after midnight Plan is for cholecystectomy with surgical service tomorrow Continue IV antibiotics Thank you for allowing us to participate in the care of the patient
[2019-09-09] MEDS: ISOSORBIDE MONONITRATE ER 60 MG TAB.ER.24H PO SCH (05:38)
[2019-09-09] MEDS: ATENOLOL 25 MG TAB PO SCH (05:38)
[2019-09-09] MEDS: LISINOPRIL 5 MG TAB PO SCH (05:38)
[2019-09-09] MEDS: traMADol 50 MG TAB PO PRN ×2 (05:38→19:22)
[2019-09-09] MEDS: PROPAFENONE 150 MG TAB PO SCH ×3 (05:39→19:22)
[2019-09-09] MEDS: DOXAZOSIN 2 MG TAB PO SCH (05:39)
[2019-09-09] MEDS: ATORVASTATIN 40 MG TAB PO SCH (06:46)
[2019-09-09] MEDS: PANTOPRAZOLE 40 MG TABLET PO SCH (06:46)
[2019-09-09 06:56] LABS: Glucose,Whole Blood 139 mg/dL (75-99)
[2019-09-09] MEDS: INSULIN ASPART (NovoLOG) 100 UNIT/ML VIAL SQ SCH ×4 (07:13→20:34)
[2019-09-09] MEDS: metroNIDAZOLE-NS PMX 500 MG in SALINE 1 100ML.BAG IVPB SCH ×2 (07:13→15:38)
[2019-09-09] MEDS ORDERED: BUPIVACAINE (PF) 0.25% 30 ML VIAL SQ ONE ×3 (07:36→10:00)
[2019-09-09] MEDS ORDERED: PROPOFOL 10 MG/ML 20 ML VIAL IV ONE (07:53)
[2019-09-09] MEDS ORDERED: LIDOCAINE 1% INJ 10MG/ML (20 ML MDV) ONE (07:53)
[2019-09-09] MEDS ORDERED: SUCCINYLCHOLINE CHLORIDE 100 MG/5 ML SYR IV ONE (07:53)
[2019-09-09] MEDS ORDERED: DEXAMETHASONE SOD PHOS (MDV) 100 MG/10 ML VIAL ONE (07:53)
[2019-09-09] MEDS ORDERED: GLYCOPYRROLATE 0.2 MG/ML 2 ML VIAL ONE (07:53)
[2019-09-09] MEDS ORDERED: MIDAZOLAM 2 MG/2 ML VIAL ONE (07:53)
[2019-09-09] MEDS ORDERED: IV FLUID CONTINUATION 400 ML IV ONE (07:53)
[2019-09-09] MEDS ORDERED: ROCURONIUM BROMIDE 10 MG/ML 10 ML VIAL IV ONE (07:53)
[2019-09-09] MEDS ORDERED: NEOSTIGMINE 1 MG/ML 10 ML VIAL ONE (07:53)
[2019-09-09] MEDS ORDERED: ePHEDrine SULFATE/0.9% NACL/PF 50 MG/5 ML SYRINGE IV ONE (07:53)
[2019-09-09] MEDS ORDERED: fentaNYL (PF) 50 MCG/ML 2 ML AMP ONE (07:53)
--- NOTE | 2019-09-09 07:58 | P.PN ---
Progress Note - Text Progress Note Date: 09/09/19 No code status suspended during surgery. Will be reinitiated postoperatively
[2019-09-09 08:06] LABS: Basophils % (A) 0 %; Eosinophils # (A) 0.2 k/uL (0-0.7); Eosinophils % (A) 2 %; HCT 41.7 % (39.0-53.0); HGB 14.1 gm/dL (13.0-17.5); Lymphocytes # (A) 0.7 k/uL (1.0-4.8); Lymphocytes % (A) 7 %; MCHC 33.8 g/dL (31.0-37.0); MCV 94.8 fL (80.0-100.0); Mean Platelet Volume 8.7; Monocytes # (A) 0.8 k/uL (0-1.0); Monocytes % (A) 8 %; Neutrophils # (A) 8.3 k/uL (1.3-7.7); Neutrophils % (A) 82 %; Platelet Count 159 k/uL (150-450); RDW 12.8 % (11.5-15.5); WBC 10.2 k/uL (3.8-10.6)
[2019-09-09] MEDS ORDERED: LIDOCAINE 1%-EPI 1:100,000 20 ML VIAL SQ ONE ×2 (08:23→10:00)
[2019-09-09 08:24] LABS: ALT 26 U/L (4-49); AST 29 U/L (17-59); African American GFR (CKD) >90 (>60 ml/min/1.73 sqM); Alkaline Phosphatase 91 U/L (38-126); Anion Gap 9 mmol/L; Blood Urea Nitrogen 15 mg/dL (9-20); Calcium 8.8 mg/dL (8.4-10.2); Carbon Dioxide 24 mmol/L (22-30); Chloride 108 mmol/L (98-107); Glucose 128 mg/dL (74-99); Non-African American GFR(CKD) >90 (>60 ml/min/1.73 sqM); Potassium 3.6 mmol/L (3.5-5.1); Sodium 141 mmol/L (137-145); Total Bilirubin 1.7 mg/dL (0.2-1.3); Total Protein 5.5 g/dL (6.3-8.2)
[2019-09-09 08:52] LABS: INR 1.1 (<1.2); Prothrombin Time 11.4 sec (9.0-12.0)
[2019-09-09] MEDS ORDERED: LACTATED RINGERS 1,000 ML IV ONE ×4 (08:57→10:38)
--- NOTE | 2019-09-09 09:56 | P.OP ---
Date of Procedure: 09/09/19 Preoperative Diagnosis: Acute cholecystitis Postoperative Diagnosis: Acute cholecystitis with empyema of gallbladder Procedure(s) Performed: laparoscopic cholecystectomy with drain placement Anesthesia: JESSE Surgeon: Terra Willard Estimated Blood Loss (ml): 75 Pathology: other Condition: stable Disposition: PACU Indications for Procedure: The patient presented with acute abdominal pain and findings of acute cholecystitis Description of Procedure: The patient's taken the operative suite where he is prepped and draped in the usual sterile manner under general endotracheal anesthetic. Due to the long abdominal wall, a supraumbilical incision was made. Veress needle was placed into the abdominal cavity and pneumoperitoneum was established with CO2 gas. Sites are chosen for accessory trochars needs are placed through small skin incisions. Some of the omentum is densely adherent to the gallbladder and its tediously taken down. The lymph node and Michel's pouch were then able to be identified. The cystic artery and cystic duct are tediously dissected free. The cystic duct was becoming of thinned and necrotic. It was triply clipped and then further secured with 0 PDS Endoloop. There was normal green bile at the cut surface. As the gallbladder was being dissected free, the lumen was entered with drainage of purulent material. The gallbladder is tediously dissected free from the liver bed. Small bleeding points are controlled with electrocautery. The gallbladder is placed into a specimen retrieval bag. The liver bed was fairly hemostatic. To monitor the cystic duct stump, a drain was placed into the subhepatic space. Excess irrigant was suctioned out. Pneumoperitoneum was released. Trochars were removed. Specimen retrieval bag was removed. The fascia at the 10 mm trocar sites was closed with 0 Vicryl. The skin incisions were closed with mark. The drain was secured in place with nylon suture. Sterile dressings were applied. He tolerated the procedure without difficulty and was taken recovery room in satisfactory condition. According to or personnel, all counts were correct.
--- NOTE | 2019-09-09 10:13 | P.PN ---
Subjective Progress Note Date: 09/09/19 This is a 69-year-old male patient who presented with complaint of abdominal pain over the past 2 days. Patient reports that the pain started on 09/04 around 1 AM with sharp pain to lower abdomen and flank area. Patient reports mild nausea. Patient denies any vomiting or diarrhea. Patient does have a past medical history of atrial fibrillation which she is maintained on Coumadin, CVA, diabetes mellitus, hyperlipidemia, hypertension and nicotine dependence. CT of abdomen and pelvis completed showing inflammation centered at the right upper quadrant with hydropic gallbladder and cholelithiasis. Findings chest acute cholecystitis. Inflammation of mild fluid tracks on the right side of the ab domen. Borderline AAA at 3.0 cm mild to moderate superficial bladder wall thickening may represent chronic bladder hypertrophy correlate to exclude cystitis. White blood cell elevated at 16.1. INR 3.2. Lactic acid 2.1. At this time surgical and GI services have been consulted. Patient will be started on Rocephin. Coumadin will be held. On 09/07/2019 patient is alert and oriented 3. Cardiology services have been consulted for cardiac clearance prior to procedure. INR remains high at 3.2. Coumadin remains on hold. Surgical services have been consulted. Remains on Rocephin IV antibiotics. At this time patient is still having some abdominal pain. Patient denies chest pain or shortness breath. Patient denies nausea vomiting. Patient denies any urinary burning or frequency On 09/08/2019 patient was seen and examined on the medical floor he is alert and oriented 3 in no apparent distress he is still complaining of pain in the right upper quadrant otherwise he denies any complaints there is no fever or chills no headache or dizziness no chest pain no shortness of breath no cough no nausea or vomiting no diarrhea no burning was urination no frequency or urgency and no h ematuria On 09/09/2019 patient is alert and oriented 3 he is still complaining of right upper quadrant abdominal pain otherwise he denies any complaints there is no fever or chills no headache or dizziness no chest pain no shortness of breath no cough no nausea or vomiting no diarrhea no burning with urination no frequency or urgency and no hematuria. He is scheduled for laparoscopic cholecystectomy today with Dr. Willard. Objective - Vital Signs Vital signs: Vital Signs Temp 99.0 F 09/09/19 03:20 Pulse 63 09/09/19 03:20 Resp 18 09/09/19 03:20 BP 131/75 09/09/19 03:20 Pulse Ox 98 09/09/19 03:20 Intake & Output 09/08/19 09/09/19 09/09/19 18:59 06:59 18:59 Intake Total 480 160 Balance 480 160 Intake: Intake, IV Titration 480 60 Amount Sodium Chloride 0.9% 1, 480 60 000 ml @ 60 mls/hr IV . [id number] [facility] Rx#:[id number] Oral 100 Other: Voiding Method Toilet Toilet # Voids 2 1 - Exam In general patient is alert and oriented 3 in no apparent distress Head normocephalic and atraumatic Neck supple no JVD no goiter Lungs clear to auscultation bilaterally no wheezing or crackles Heart irregular rhythm. known atrial fibrillation Abdomen is soft with tenderness in the right upper quadrant no organomegaly no palpable masses was normal bowel sounds Extremities no edema no cyanosis or clubbing Neuro no gross focal neurological deficit - Labs CBC & Chem 7: 09/09/19 07:08 09/09/19 07:08 Labs: Abnormal Lab Results - Last 24 Hours (Table) 09/08/19 09/08/19 09/08/19 Range/Units 07:06 07:06 11:32 PT 12.7 H (9.0-12.0) sec INR 1.2 H (<1.2) Potassium 3.3 L (3.5-5.1) mmol/L Chloride 110 H (98-107) mmol/L Carbon Dioxide 21 L (22-30) mmol/L Glucose 147 H (74-99) mg/dL POC Glucose (mg/dL) 129 H (75-99) mg/dL Total Bilirubin 2.4 H (0.2-1.3) mg/dL Unconjugated Bilirubin 1.4 H (0.0-1.1) mg/dL Delta Bilirubin 1.0 H (0.0-0.2) mg/dL Total Protein 5.7 L (6.3-8.2) g/dL Albumin 3.2 L (3.5-5.0) g/dL 09/08/19 09/08/19 09/09/19 Range/Units 16:54 20:54 06:52 PT (9.0-12.0) sec INR (<1.2) Potassium (3.5-5.1) mmol/L Chloride (98-107) mmol/L Carbon Dioxide (22-30) mmol/L Glucose (74-99) mg/dL POC Glucose (mg/dL) 110 H 243 H 139 H (75-99) mg/dL Total Bilirubin (0.2-1.3) mg/dL Unconjugated Bilirubin (0.0-1.1) mg/dL Delta Bilirubin (0.0-0.2) mg/dL Total Protein (6.3-8.2) g/dL Albumin (3.5-5.0) g/dL Assessment and Plan Plan: 1. Abdominal pain secondary to acute cholecystitis with leukocytosis and dina vated lactic acid. Abdominal CT completed showing inflammation centered at the right upper quadrant with hydropic gallbladder and cholelithiasis. Findings suggest acute cholecystitis. Inflammation mild fluid tracks down the right side of the abdomen. Borderline AAA at 3.0 cm mild to moderate superficial bladder wall thickening may represent chronic bladder hypertrophy correlate to exclude cystitis. Patient started on Rocephin. Surgical and GI services have been consulted. Lactic 0.6 2. History of paroxysmal atrial fibrillation. Continue Coumadin. INR 3.2 Coumadin on hold for possible surgical intervention. Cardiology services have been consulted for cardiac clearance 2-D echo has been ordered 3. History of CVA 4. History of diabetes mellitus type 2. sliding scale coverage ordered 5. Hyperlipidemia. Maintained on statin 6. History of essential hypertension DVT prophylaxis SCDs. GI prophylaxis Protonix GI and surgical service consulted Rocephin for IV antibiotics. Patient currently nothing by mouth Coumadin on hold Cardiology services have been consulted for cardiac clearance. Patient was cleared by cardiology his INR is down to 1.2 Patient was reevaluated by surgery and he is scheduled for laparoscopic cholecystectomy tomorrow
[2019-09-09] MEDS ORDERED: fentaNYL (PF) 50 MCG/ML 2 ML AMP IVP ONE ×2 (10:20→10:30)
[2019-09-09] MEDS: MORPHINE SULFATE 4 MG/ML SYRINGE IV PRN ×3 (11:19→22:00)
[2019-09-09 11:49] LABS: Glucose,Whole Blood 178 mg/dL (75-99)
[2019-09-09] MEDS ORDERED: KETOROLAC 30 MG/ML 1 ML VIAL IVP PRN (13:24)
[2019-09-09 14:53] VITALS: BMI 32.3
[2019-09-09] MEDS: HEPARIN SODIUM,PORCINE 5,000 UNIT/ML 1 ML VIAL SQ SCH (15:44)
[2019-09-09 17:01] LABS: Glucose,Whole Blood 214 mg/dL (75-99)
[2019-09-09 20:23] LABS: Glucose,Whole Blood 315 mg/dL (75-99)
[2019-09-09] MEDS: SODIUM CHLORIDE 0.9% 1,000 ML IV SCH (20:35)
[2019-09-09] MEDS: ONDANSETRON 4 MG/2 ML VIAL IVP PRN (22:00)
[2019-09-10] MEDS: HEPARIN SODIUM,PORCINE 5,000 UNIT/ML 1 ML VIAL SQ SCH ×3 (00:16→15:56)
[2019-09-10] MEDS: metroNIDAZOLE-NS PMX 500 MG in SALINE 1 100ML.BAG IVPB SCH ×2 (00:17→07:26)
[2019-09-10] MEDS: MORPHINE SULFATE 4 MG/ML SYRINGE IV PRN ×2 (03:31→11:56)
[2019-09-10 07:19] LABS: Glucose,Whole Blood 228 mg/dL (75-99)
[2019-09-10] MEDS: traMADol 50 MG TAB PO PRN (07:28)
[2019-09-10] MEDS: INSULIN ASPART (NovoLOG) 100 UNIT/ML VIAL SQ SCH ×4 (07:28→21:23)
[2019-09-10 07:46] LABS: INR 1.1 (<1.2); Prothrombin Time 11.4 sec (9.0-12.0)
[2019-09-10 07:57] LABS: ALT 36 U/L (4-49); AST 36 U/L (17-59); African American GFR (CKD) >90 (>60 ml/min/1.73 sqM); Albumin 2.9 g/dL (3.5-5.0); Alkaline Phosphatase 83 U/L (38-126); Anion Gap 8 mmol/L; Blood Urea Nitrogen 16 mg/dL (9-20); Calcium 8.7 mg/dL (8.4-10.2); Carbon Dioxide 21 mmol/L (22-30); Chloride 109 mmol/L (98-107); Glucose 245 mg/dL (74-99); Non-African American GFR(CKD) >90 (>60 ml/min/1.73 sqM); Potassium 3.6 mmol/L (3.5-5.1); Sodium 138 mmol/L (137-145); Total Bilirubin 1.3 mg/dL (0.2-1.3); Total Protein 5.4 g/dL (6.3-8.2)
[2019-09-10 08:08] LABS: Basophils % (A) 0 %; Eosinophils % (A) 0 %; Lymphocytes # (A) 0.6 k/uL (1.0-4.8); Lymphocytes % (A) 6 %; MCH 32.8 pg (25.0-35.0); MCHC 34.9 g/dL (31.0-37.0); MCV 93.8 fL (80.0-100.0); Monocytes # (A) 0.6 k/uL (0-1.0); Monocytes % (A) 7 %; Neutrophils # (A) 7.9 k/uL (1.3-7.7); Neutrophils % (A) 85 %; Platelet Count 176 k/uL (150-450); RBC 4.27 m/uL (4.30-5.90); RDW 12.8 % (11.5-15.5); WBC 9.3 k/uL (3.8-10.6)
[2019-09-10] MEDS: ISOSORBIDE MONONITRATE ER 60 MG TAB.ER.24H PO SCH (08:09)
[2019-09-10] MEDS: PANTOPRAZOLE 40 MG TABLET PO SCH (08:09)
[2019-09-10] MEDS: DOXAZOSIN 2 MG TAB PO SCH (08:09)
[2019-09-10] MEDS: ATENOLOL 25 MG TAB PO SCH (08:09)
[2019-09-10] MEDS: LISINOPRIL 5 MG TAB PO SCH (08:09)
[2019-09-10] MEDS: PROPAFENONE 150 MG TAB PO SCH ×3 (08:09→20:29)
[2019-09-10] MEDS: ATORVASTATIN 40 MG TAB PO SCH (08:09)
--- NOTE | 2019-09-10 10:45 | P.PN ---
Subjective Progress Note Date: 09/10/19 This is a 69-year-old male patient who presented with complaint of abdominal pain over the past 2 days. Patient reports that the pain started on 09/04 around 1 AM with sharp pain to lower abdomen and flank area. Patient reports mild nausea. Patient denies any vomiting or diarrhea. Patient does have a past medical history of atrial fibrillation which she is maintained on Coumadin, CVA, diabetes mellitus, hyperlipidemia, hypertension and nicotine dependence. CT of abdomen and pelvis completed showing inflammation centered at the right upper quadrant with hydropic gallbladder and cholelithiasis. Findings chest acute cholecystitis. Inflammation of mild fluid tracks on the right side of the ab domen. Borderline AAA at 3.0 cm mild to moderate superficial bladder wall thickening may represent chronic bladder hypertrophy correlate to exclude cystitis. White blood cell elevated at 16.1. INR 3.2. Lactic acid 2.1. At this time surgical and GI services have been consulted. Patient will be started on Rocephin. Coumadin will be held. On 09/07/2019 patient is alert and oriented 3. Cardiology services have been consulted for cardiac clearance prior to procedure. INR remains high at 3.2. Coumadin remains on hold. Surgical services have been consulted. Remains on Rocephin IV antibiotics. At this time patient is still having some abdominal pain. Patient denies chest pain or shortness breath. Patient denies nausea vomiting. Patient denies any urinary burning or frequency On 09/08/2019 patient was seen and examined on the medical floor he is alert and oriented 3 in no apparent distress he is still complaining of pain in the right upper quadrant otherwise he denies any complaints there is no fever or chills no headache or dizziness no chest pain no shortness of breath no cough no nausea or vomiting no diarrhea no burning was urination no frequency or urgency and no h ematuria On 09/09/2019 patient is alert and oriented 3 he is still complaining of right upper quadrant abdominal pain otherwise he denies any complaints there is no fever or chills no headache or dizziness no chest pain no shortness of breath no cough no nausea or vomiting no diarrhea no burning with urination no frequency or urgency and no hematuria. He is scheduled for laparoscopic cholecystectomy today with Dr. Willard. On 09/10/2019 patient is alert and oriented 3. Patient is status post left 6. Chronic cholecystectomy with drain placement with postoperative findings of acute cholecystitis with empyema of the gallbladder. Patient currently on Rocephin and Flagyl for IV antibiotics Dr. Paulino has been consulted for infectious disease. Patient still having some abdominal distention and discomfort. White blood cell count has normalized. She currently maintained on low-fat diet. Patient denies chest pain. Patient denies any shortness of breath. Patient denies nausea vomiting or diarrhea. Patient denies any urinary burning or frequency Objective - Vital Signs Vital signs: Vital Signs Temp 98.5 F 09/10/19 07:00 Pulse 62 09/10/19 07:00 Resp 16 09/10/19 07:00 BP 162/75 09/10/19 07:00 Pulse Ox 95 09/10/19 07:00 Intake & Output 09/09/19 09/10/19 09/10/19 18:59 06:59 18:59 Intake Total 1880 1800 Output Total 515 650 20 Balance 1365 1150 -20 Weight 102.058 kg Intake: IV 1400 Intake, IV Titration 480 760 Amount Sodium Chloride 0.9% 1, 480 660 000 ml @ 60 mls/hr IV . [id number] RODRIGUE Rx#:[id number] metroNIDAZOLE-NS PMX 500 100 mg In Saline 1 100ml.bag @ 100 mls/hr IVPB Q8HR RODRIGUE Rx#:[id number] Oral 1040 Output: Drainage 155 50 20 Right 155 50 20 Urine 350 600 Estimated Blood Loss 10 Other: Voiding Method Toilet Toilet Urinal Urinal # Voids 2 2 - Exam Head normocephalic Neck supple Lungs clear to auscultation bilaterally no wheezing or crackles Heart irregular rhythm. known atrial fibrillation Abdomen is soft and rounded. Some tenderness to palpation to lower extremity and flank area Extremities no edema Neuro alert and orientated to 3 - Labs CBC & Chem 7: 09/10/19 07:12 09/10/19 07:12 Labs: Abnormal Lab Results - Last 24 Hours (Table) 09/09/19 09/09/19 09/09/19 Range/Units 11:46 16:59 20:19 RBC (4.30-5.90) m/uL Neutrophils # (1.3-7.7) k/uL Lymphocytes # (1.0-4.8) k/uL Chloride (98-107) mmol/L Carbon Dioxide (22-30) mmol/L Glucose (74-99) mg/dL POC Glucose (mg/dL) 178 H 214 H 315 H (75-99) mg/dL Total Protein (6.3-8.2) g/dL Albumin (3.5-5.0) g/dL 09/10/19 09/10/19 09/10/19 Range/Units 06:56 07:12 07:12 RBC 4.27 L (4.30-5.90) m/uL Neutrophils # 7.9 H (1.3-7.7) k/uL Lymphocytes # 0.6 L (1.0-4.8) k/uL Chloride 109 H (98-107) mmol/L Carbon Dioxide 21 L (22-30) mmol/L Glucose 245 H (74-99) mg/dL POC Glucose (mg/dL) 228 H (75-99) mg/dL Total Protein 5.4 L (6.3-8.2) g/dL Albumin 2.9 L (3.5-5.0) g/dL Microbiology - Last 24 Hours (Table) 09/09/19 09:56 Gram Stain - Preliminary Other - Other Wound Culture - Preliminary Gram Neg Bacilli 09/09/19 09:56 Anaerobic Culture - Preliminary Other - Other Assessment and Plan Assessment: 1. Abdominal pain secondary to acute cholecystitis with leukocytosis and elevated lactic acid. Abdominal CT completed showing inflammation centered at the right upper quadrant with hydropic gallbladder and cholelithiasis. Findings suggest acute cholecystitis. Inflammation mild fluid tracks down the right side of the abdomen. Borderline AAA at 3.0 cm mild to moderate superficial bladder wall thickening may represent chronic bladder hypertrophy correlate to exclude cystitis. Patient started on Rocephin. Surgical and GI services have been cons ulted. Lactic 0.6. Status post laparoscopic cholecystectomy postop day 1. 2. Empyema of the gallbladder. Dr. Roldan has been consulted. Patient currently maintained on Rocephin and Flagyl 3. History of paroxysmal atrial fibrillation. Continue Coumadin. INR 3.2 Coumadin on hold for possible surgical intervention. Patient was evaluated by cardiology services prior to surgery. Per cardiology LV function and 2-D echo will preserved resume his Coumadin as soon as possible after surgery and cardiac medications 4. History of CVA 5. History of diabetes mellitus type 2. sliding scale coverage ordered 6. Hyperlipidemia. Maintained on statin 7. History of essential hypertension DVT prophylaxis heparin GI prophylaxis Protonix I performed an examination of the patient and discussed their management with the Nurse Practitioner. I have reviewed the Nurse Practitioner's notes and agree with the documented findings and plan of care
[2019-09-10 11:35] LABS: Glucose,Whole Blood 211 mg/dL (75-99)
[2019-09-10] MEDS: AMPICILLIN-SULBACTAM 3 GM in SODIUM CHLORIDE 0.9% 100 ML IVPB SCH ×2 (12:56→17:28)
--- NOTE | 2019-09-10 13:09 | P.PN ---
Subjective Progress Note Date: 09/10/19 This is a pleasant 69-year-old gentleman who follows with Dr. Mendoza in the office. He has a known history of paroxysmal atrial fibrillation, anticoagulated on Coumadin, mild CAD documented by coronary angiography in 2016, hypertension, diabetes mellitus, and hyperlipidemia. Presented to the hospital with complaints of severe abdominal discomfort that started on September 04. Computed tomography scan of the abdomen showed inflammation centered at the right upper quadrant with hydropic gallbladder and cholelithiasis, findings suggest acute cholecystitis, inflammation and mild fluid tracks down the right side of the abdomen, borderline AAA at 3.0 cm and mild to moderate circumferential bladder wall thickening which may represent chronic bladder hypertrophy. EKG showed sinus rhythm. Patient was seen and examined by Dr. Ignacio who recommends a laparoscopic cholecystectomy. INR on admission was 3.1, today 3.2. Patient continues to have significant abdominal discomfort located mostly in the right upper quadrant with significant tenderness to palpation. Laboratory values show a white blood cell count of 16,600, BUN 13, creatinine 0.76, total bilirubin 1.9 with normal ALTs, AST and alkaline phosphatase and normal amylase and lipase. Mr. Vázquez has not had complaints of shortness of breath, chest discomfort, palpitations, orthopnea, PND, or edema. Current home medications include isosorbide 60 mg by mouth daily, enalapril 2.5 mg by mouth daily, atenolol 25 mg by mouth daily, Cardura 2 mg by mouth daily, Rythmol 150 mg by mouth 3 times a day, Coumadin 7.5 mg by mouth daily except for Sundays when he takes 10 mg, Lipitor 40 mg by mouth daily, metformin, Requip, Prilosec, Ultram and Amaryl. 09/10/2019 Patient was seen and examined today sitting up in a chair visiting with his wif nancy. Overall, from a cardiac standpoint the patient is doing well. He does complain of some abdominal discomfort as he has postop day #1 from laparoscopic cholecystectomy. He has been up ambulating. He denies any shortness of breath, dizziness, lightheadedness, or syncope. He has not been passing flatus and has not had a bowel movement. His Coumadin has not been resumed. INR today 1.1. Objective - Vital Signs Vital signs: Vital Signs Temp 98.5 F 09/10/19 07:00 Pulse 62 09/10/19 07:00 Resp 16 09/10/19 07:00 BP 162/75 09/10/19 07:00 Pulse Ox 95 09/10/19 07:00 Intake & Output 09/09/19 09/10/19 09/10/19 18:59 06:59 18:59 Intake Total 1880 1800 Output Total 515 650 20 Balance 1365 1150 -20 Weight 102.058 kg Intake: IV 1400 Intake, IV Titration 480 760 Amount Sodium Chloride 0.9% 1, 480 660 000 ml @ 60 mls/hr IV . [id number] R[facility] Rx#:[id number] metroNIDAZOLE-NS PMX 500 100 mg In Saline 1 100ml.bag @ 100 mls/hr IVPB Q8HR R[facility]RIGUE Rx#:[id number] Oral 1040 Output: Drainage 155 50 20 Right 155 50 20 Urine 350 600 Estimated Blood Loss 10 Other: Voiding Method Toilet Toilet Urinal Urinal # Voids 2 2 - Exam PHYSICAL EXAMINATION: HEENT: Head is atraumatic, normocephalic. Pupils equal, round. Neck is supple. There is no elevated jugular venous pressure. HEART EXAMINATION: Heart sounds regular, S1 and S2 with a systolic murmur at the base. CHEST EXAMINATION: Lungs are clear to auscultation. No chest wall tenderness is noted on palpation or with deep breathing. ABDOMEN: Soft, some distention noted, tender to palpation. Bowel sounds are heard. No organomegaly noted. EXTREMITIES: 2+ peripheral pulses with evidence of trace peripheral edema and no calf tenderness noted. NEUROLOGIC patient is awake, alert and oriented x3. - Labs CBC & Chem 7: 09/10/19 07:12 09/10/19 07:12 Labs: Abnormal Lab Results - Last 24 Hours (Table) 09/09/19 09/09/19 09/10/19 Range/Units 16:59 20:19 06:56 RBC (4.30-5.90) m/uL Neutrophils # (1.3-7.7) k/uL Lymphocytes # (1.0-4.8) k/uL Chloride (98-107) mmol/L Carbon Dioxide (22-30) mmol/L Glucose (74-99) mg/dL POC Glucose (mg/dL) 214 H 315 H 228 H (75-99) mg/dL Total Protein (6.3-8.2) g/dL Albumin (3.5-5.0) g/dL 09/10/19 09/10/19 09/10/19 Range/Units 07:12 07:12 11:34 RBC 4.27 L (4.30-5.90) m/uL Neutrophils # 7.9 H (1.3-7.7) k/uL Lymphocytes # 0.6 L (1.0-4.8) k/uL Chloride 109 H (98-107) mmol/L Carbon Dioxide 21 L (22-30) mmol/L Glucose 245 H (74-99) mg/dL POC Glucose (mg/dL) 211 H (75-99) mg/dL Total Protein 5.4 L (6.3-8.2) g/dL Albumin 2.9 L (3.5-5.0) g/dL Microbiology - Last 24 Hours (Table) 09/09/19 09:56 Gram Stain - Preliminary Other - Other Wound Culture - Preliminary Gram Neg Bacilli 09/09/19 09:56 Anaerobic Culture - Preliminary Other - Other Assessment and Plan Assessment: #1 acute cholecystitis, status post laparoscopic cholecystectomy #2 paroxysmal atrial fibrillation, warfarin has been on hold for surgery, INR 1.1 #3 mild CAD #4 hypertension #5 hyperlipidemia #6 type 2 diabetes mellitus 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 Monitor INR. We will continue to follow the patient for a further recommendations accordingly. 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 Patient was seen and examined.
[2019-09-10] MEDS ORDERED: HYDROcodone/APAP 5-325MG 1 EACH TAB PO PRN (14:06)
[2019-09-10] MEDS ORDERED: HYDROmorphone 0.5 MG/0.5 ML SYRINGE IVP PRN (14:07)
--- NOTE | 2019-09-10 14:14 | P.PN ---
Subjective Progress Note Date: 09/10/19 Principal diagnosis: S/P laparoscopic cholecystectomy for empyema of the gallbladder The patient is seen on rounds. He has multiple complaints. The pain medication is not working well. He requests Dilaudid even though he has had some confusion with this in the past. Complains of no bowel movement. Complains of dry mouth. No nausea or vomiting. Objective - Vital Signs Vital signs: Vital Signs Temp 98.5 F 09/10/19 07:00 Pulse 62 09/10/19 07:00 Resp 16 09/10/19 07:00 BP 162/75 09/10/19 07:00 Pulse Ox 95 09/10/19 07:00 Intake & Output 09/09/19 09/10/19 09/10/19 18:59 06:59 18:59 Intake Total 1880 1800 390 Output Total 515 650 20 Balance 1365 1150 370 Weight 102.058 kg Intake: IV 1400 Intake, IV Titration 480 760 390 Amount Sodium Chloride 0.9% 1, 480 660 240 000 ml @ 60 mls/hr IV . [id number] R[facility]IG[facility] Rx#:[id number] cefTRIAXone 1 gm In 50 Sodium Chloride 0.9% 50 ml @ 100 mls/hr IVPB Q24HR R[facility]IG[facility] Rx#:[id number] metroNIDAZOLE-NS PMX 500 100 100 mg In Saline 1 100ml.bag @ 100 mls/hr IVPB Q8HR RODRIGUE Rx#:[id number] Oral 1040 Output: Drainage 155 50 20 Right 155 50 20 Urine 350 600 Estimated Blood Loss 10 Other: Voiding Method Toilet Toilet Urinal Urinal # Voids 2 2 - Constitutional General appearance: Present: cooperative - Gastrointestinal General gastrointestinal: Present: decreased bowel sounds, soft Localized gastrointestinal: surgical scar: diffuse (MARLENE is serosanguineous) - Labs CBC & Chem 7: 09/10/19 07:12 09/10/19 07:12 Labs: Abnormal Lab Results - Last 24 Hours (Table) 09/09/19 09/09/19 09/10/19 Range/Units 16:59 20:19 06:56 RBC (4.30-5.90) m/uL Neutrophils # (1.3-7.7) k/uL Lymphocytes # (1.0-4.8) k/uL Chloride (98-107) mmol/L Carbon Dioxide (22-30) mmol/L Glucose (74-99) mg/dL POC Glucose (mg/dL) 214 H 315 H 228 H (75-99) mg/dL Total Protein (6.3-8.2) g/dL Albumin (3.5-5.0) g/dL 09/10/19 09/10/19 09/10/19 Range/Units 07:12 07:12 11:34 RBC 4.27 L (4.30-5.90) m/uL Neutrophils # 7.9 H (1.3-7.7) k/uL Lymphocytes # 0.6 L (1.0-4.8) k/uL Chloride 109 H (98-107) mmol/L Carbon Dioxide 21 L (22-30) mmol/L Glucose 245 H (74-99) mg/dL POC Glucose (mg/dL) 211 H (75-99) mg/dL Total Protein 5.4 L (6.3-8.2) g/dL Albumin 2.9 L (3.5-5.0) g/dL Microbiology - Last 24 Hours (Table) 09/09/19 09:56 Gram Stain - Preliminary Other - Other Wound Culture - Preliminary Gram Neg Bacilli 09/09/19 09:56 Anaerobic Culture - Preliminary Other - Other Assessment and Plan (1) Acute cholecystitis Current Visit: Yes Status: Acute Code(s): K81.0 - ACUTE CHOLECYSTITIS SNOMED Code(s): 26320707 (2) Uncontrolled diabetes mellitus Current Visit: No Status: Acute Code(s): E11.65 - TYPE 2 DIABETES MELLITUS WITH HYPERGLYCEMIA SNOMED Code(s): 58577899 (3) Unstable angina Current Visit: No Status: Acute Code(s): I20.0 - UNSTABLE ANGINA SNOMED Code(s): 2472917 Plan: We'll try to adjust the patient's pain medication. Explained a postoperative ileus as normal after acute cholecystitis and surgery. We'll give him some Dulcolax tablets but I will try to stimulate the colon to much so we don't cause nausea and vomiting. The dry mouth is due to the anesthetic which should resolve by tomorrow. We'll monitor the MARLENE drain for any signs of bile. The stump of the cystic duct was somewhat inflamed. He is on IV antibiotics. Cultures are pending. Progressing slowly.
[2019-09-10] MEDS ORDERED: BISACODYL 5 MG TABLET.DR PO STA (14:18)
[2019-09-10] MEDS: metroNIDAZOLE 500 MG TAB PO SCH (15:56)
[2019-09-10] MEDS: HYDROcodone/APAP 5-325MG 1 EACH TAB PO PRN ×2 (15:59→20:28)
[2019-09-10] MEDS: SODIUM CHLORIDE 0.9% 1,000 ML IV SCH (16:00)
[2019-09-10 16:55] LABS: Glucose,Whole Blood 231 mg/dL (75-99)
[2019-09-10] MEDS: DOCUSATE 100 MG CAP PO SCH (20:28)
[2019-09-10 20:34] LABS: Glucose,Whole Blood 211 mg/dL (75-99)
--- NOTE | 2019-09-10 23:05 | P.CONS ---
History of Present Illness - Reason for Consult Consult date: 09/10/19 gall bladder empyema Requesting physician: Andrew Walker - Chief Complaint abd pain x 2 days - History of Present Illness Patient is a 69-year male presenting to the ER at [facility] on September 06, 2019 with chief complaints of abdominal pain patient pain has been mostly on the right upper abdominal area and the pain was there for 2 days before he presented to the hospital patient describes the pain to be sharp and almost 10 out of 10 in severity when he initially presented to the hospital on September 06 patient did have a CT of abdominal pelvis completed the same day which shows inflammation centered at the right upper quadrant with hydr opic gallbladder and cholelithiasis suggestive of acute cholecystitis patient has been evaluated by GI and general surgery services patient on presentation to the hospital did have a low-grade fever of 99.4 he did have a elevated white was 16.1 subsequently has been taken to the OR yesterday morning with the patient noticed to have a critical status with empyema of the gallbladder status post course cystectomy with drain placement culture has been repeated did not show any gram-negative patient has been on Zosyn infectious was consulted today for further recommendation regarding antibiotic therapy. Review of Systems Positive point has been mentioned in HPI rest of the systems are negative Past Medical History Past Medical History: Atrial Fibrillation, CVA/TIA, Diabetes Mellitus, Hyperlipidemia, Hypertension Additional Past Medical History / Comment(s): NIDDM, kidney stones History of Any Multi-Drug Resistant Organisms: None Reported Past Surgical History: No Surgical Hx Reported Additional Past Surgical History / Comment(s): 2008 normal heart cath, EGD/colonoscopy, R lower eyelid sx, R cataract removal, R foot bunionectomy. Past Anesthesia/Blood Transfusion Reactions: No Reported Reaction Past Psychological History: No Psychological Hx Reported Smoking Status: Current every day smoker Past Alcohol Use History: None Reported Past Drug Use History: None Reported - Past Family History Mother Family Medical History: Diabetes Mellitus Additional Family Medical History / Comment(s): Mother haad heart problems. Father History Unknown: Yes Additional Family Medical History / Comment(s): Pt does not know his father's health hx. Medications and Allergies Home Medications Medication Instructions Recorded Confirmed Type Atenolol 25 mg PO DAILY 04/02/16 09/06/19 History Doxazosin [Cardura] 2 mg PO DAILY 04/02/16 09/06/19 History Enalapril [Vasotec] 2.5 mg PO DAILY 04/02/16 09/06/19 History Isosorbide Mononitrate ER [Imdur] 60 mg PO DAILY 04/02/16 09/06/19 History Propafenone [Rythmol] 150 mg PO TID 04/02/16 09/06/19 History Warfarin [Coumadin] 7.5 mg PO [id number] 04/02/16 09/06/19 History Omeprazole Magnesium [PriLOSEC OTC] 20 mg PO DAILY 07/06/17 09/06/19 History Glimepiride [Amaryl] 4 mg PO DAILY 04/17/19 09/06/19 History Multivitamins, Thera [Multivitamin 1 tab PO DAILY 04/17/19 09/06/19 History (formulary)] Warfarin Sodium [Coumadin] 10 mg PO CANCINO 04/17/19 09/06/19 History traMADol HCL [Ultram] 50 mg PO TID PRN 04/17/19 09/06/19 History Atorvastatin [Lipitor] 40 mg PO DAILY 09/06/19 09/06/19 History metFORMIN HCL 1,000 mg PO BID 09/06/19 09/06/19 History rOPINIRole HCL [Requip] 2 mg PO HS 09/06/19 09/06/19 History Allergies Allergy/AdvReac Type Severity Reaction Status Date / Time hydromorphone HCl AdvReac Hallucinati Verified 09/06/19 13:58 [From Dilaudid] ons Physical Exam Vitals: Vital Signs Temp Pulse Pulse Resp BP Pulse Ox 09/10/19 07:00 98.5 F 62 16 162/75 95 09/10/19 01:55 97.9 F 61 16 166/88 90 L 09/09/19 20:34 98.7 F 71 18 147/68 94 L 09/09/19 15:00 97.9 F 79 17 150/72 96 09/09/19 12:25 80 161/89 92 L Intake and Output 09/09/19 09/10/19 09/10/19 22:59 06:59 14:59 Intake Total 1160 640 Output Total 1055 20 20 Balance 105 620 -20 Intake: Intake, IV Titration 120 640 Amount Sodium Chloride 0.9% 1, 120 540 000 ml @ 60 mls/hr IV . [id number] RODRIGUE Rx#:[id number] metroNIDAZOLE-NS PMX 500 100 mg In Saline 1 100ml.bag @ 100 mls/hr IVPB Q8HR RODRIGUE Rx#:[id number] Oral 1040 Output: Drainage 105 20 20 Right 105 20 20 Urine 950 Other: Voiding Method Toilet Toilet Urinal Urinal # Voids 2 2 GENERAL DESCRIPTION: Elderly middle-aged male lying in bed, no distress. No tachypnea or accessory muscle of respiration use. HEENT: Shows Pallor , no scleral icterus. Oral mucous membrane is dry. NECK: Trachea central, no thyromegaly. LUNGS: Unlabored breathing. Clear to auscultation anteriorly. No wheeze or crackle. HEART: S1, S2, regular rate and rhythm. ABDOMEN: Soft, right upper quadrant tenderness , guarding or rigidity EXTREMITIES: No edema of feet. SKIN: No rash, no masses palpable. NEUROLOGICAL: The patient is awake, alert, oriented x3, mood and affect normal. Results CBC & Chem 7: 09/10/19 07:12 09/10/19 07:12 Labs: Abnormal Lab Results - Last 24 Hours (Table) 09/09/19 09/09/19 09/10/19 Range/Units 16:59 20:19 06:56 RBC (4.30-5.90) m/uL Neutrophils # (1.3-7.7) k/uL Lymphocytes # (1.0-4.8) k/uL Chloride (98-107) mmol/L Carbon Dioxide (22-30) mmol/L Glucose (74-99) mg/dL POC Glucose (mg/dL) 214 H 315 H 228 H (75-99) mg/dL Total Protein (6.3-8.2) g/dL Albumin (3.5-5.0) g/dL 09/10/19 09/10/19 09/10/19 Range/Units 07:12 07:12 11:34 RBC 4.27 L (4.30-5.90) m/uL Neutrophils # 7.9 H (1.3-7.7) k/uL Lymphocytes # 0.6 L (1.0-4.8) k/uL Chloride 109 H (98-107) mmol/L Carbon Dioxide 21 L (22-30) mmol/L Glucose 245 H (74-99) mg/dL POC Glucose (mg/dL) 211 H (75-99) mg/dL Total Protein 5.4 L (6.3-8.2) g/dL Albumin 2.9 L (3.5-5.0) g/dL Microbiology - Last 24 Hours (Table) 09/09/19 09:56 Gram Stain - Preliminary Other - Other Wound Culture - Preliminary Gram Neg Bacilli 09/09/19 09:56 Anaerobic Culture - Preliminary Other - Other Assessment and Plan Assessment: 1-patient with gallbladder empyema in this patient presented hospital with right upper quadrant pain x2 days with evidence of cholecystitis on the basis of CT status post laparoscopic cholecystectomy with gallbladder fluid currently showing gram-negative with ID sensitivity pending and this patient has not been on antibiotic in the recent past could be a sensitive pathogen such as E. coli or Klebsiella (1) Acute cholecystitis Current Visit: Yes Status: Acute Code(s): K81.0 - ACUTE CHOLECYSTITIS SNOMED Code(s): 71932848 Plan: 1-discontinue Rocephin 2-start the patient on Unasyn 3 g every 6 hours while waiting for ID sensitivity on this gram-negative pathogen 3-gentle IV fluid We will follow on clinical condition and cultures to further adjust medication if needed Thank you for this consultation we will follow the patient along with you Time with Patient: Greater than 30
[2019-09-11] MEDS: HEPARIN SODIUM,PORCINE 5,000 UNIT/ML 1 ML VIAL SQ SCH ×4 (00:02→23:40)
[2019-09-11] MEDS: AMPICILLIN-SULBACTAM 3 GM in SODIUM CHLORIDE 0.9% 100 ML IVPB SCH ×5 (00:03→23:40)
[2019-09-11] MEDS: metroNIDAZOLE 500 MG TAB PO SCH ×4 (00:06→23:40)
[2019-09-11 06:42] LABS: Glucose,Whole Blood 155 mg/dL (75-99)
[2019-09-11] MEDS: INSULIN ASPART (NovoLOG) 100 UNIT/ML VIAL SQ SCH ×4 (07:19→21:28)
[2019-09-11] MEDS: ATORVASTATIN 40 MG TAB PO SCH (08:10)
[2019-09-11] MEDS: LISINOPRIL 5 MG TAB PO SCH (08:10)
[2019-09-11] MEDS: SODIUM CHLORIDE 0.9% 1,000 ML IV SCH (08:10)
[2019-09-11] MEDS: PROPAFENONE 150 MG TAB PO SCH ×3 (08:10→21:10)
[2019-09-11] MEDS: ATENOLOL 25 MG TAB PO SCH (08:10)
[2019-09-11] MEDS: DOCUSATE 100 MG CAP PO SCH ×2 (08:10→21:10)
[2019-09-11] MEDS: ISOSORBIDE MONONITRATE ER 60 MG TAB.ER.24H PO SCH (08:10)
[2019-09-11] MEDS: DOXAZOSIN 2 MG TAB PO SCH (08:10)
[2019-09-11] MEDS: PANTOPRAZOLE 40 MG TABLET PO SCH (08:10)
[2019-09-11 08:43] LABS: ALT 34 U/L (4-49); AST 28 U/L (17-59); African American GFR (CKD) >90 (>60 ml/min/1.73 sqM); Albumin 2.9 g/dL (3.5-5.0); Alkaline Phosphatase 86 U/L (38-126); Anion Gap 9 mmol/L; Blood Urea Nitrogen 13 mg/dL (9-20); Carbon Dioxide 21 mmol/L (22-30); Chloride 113 mmol/L (98-107); Glucose 160 mg/dL (74-99); Non-African American GFR(CKD) >90 (>60 ml/min/1.73 sqM); Potassium 3.3 mmol/L (3.5-5.1); Sodium 143 mmol/L (137-145); Total Bilirubin 1.1 mg/dL (0.2-1.3); Total Protein 5.3 g/dL (6.3-8.2)
[2019-09-11 08:45] LABS: Basophils % (A) 0 %; Eosinophils # (A) 0.1 k/uL (0-0.7); Eosinophils % (A) 2 %; HCT 41.3 % (39.0-53.0); HGB 14.6 gm/dL (13.0-17.5); Lymphocytes # (A) 0.9 k/uL (1.0-4.8); Lymphocytes % (A) 13 %; MCH 33.5 pg (25.0-35.0); MCHC 35.3 g/dL (31.0-37.0); MCV 94.7 fL (80.0-100.0); Mean Platelet Volume 8.8; Monocytes # (A) 0.6 k/uL (0-1.0); Monocytes % (A) 8 %; Neutrophils # (A) 5.7 k/uL (1.3-7.7); Neutrophils % (A) 76 %; Platelet Count 216 k/uL (150-450); RBC 4.36 m/uL (4.30-5.90); RDW 12.8 % (11.5-15.5); WBC 7.5 k/uL (3.8-10.6)
[2019-09-11] MEDS ORDERED: Potassium Replacement Protocol 1 EACH MISC MISCELLANE PRN (08:58)
[2019-09-11] MEDS: POTASSIUM CHLORIDE ER 20 MEQ TAB.ER PO SCH ×2 (09:15→10:53)
--- NOTE | 2019-09-11 10:42 | P.PN ---
Subjective Progress Note Date: 09/11/19 This is a 69-year-old male patient who presented with complaint of abdominal pain over the past 2 days. Patient reports that the pain started on 09/04 around 1 AM with sharp pain to lower abdomen and flank area. Patient reports mild nausea. Patient denies any vomiting or diarrhea. Patient does have a past medical history of atrial fibrillation which she is maintained on Coumadin, CVA, diabetes mellitus, hyperlipidemia, hypertension and nicotine dependence. CT of abdomen and pelvis completed showing inflammation centered at the right upper quadrant with hydropic gallbladder and cholelithiasis. Findings chest acute cholecystitis. Inflammation of mild fluid tracks on the right side of the ab domen. Borderline AAA at 3.0 cm mild to moderate superficial bladder wall thickening may represent chronic bladder hypertrophy correlate to exclude cystitis. White blood cell elevated at 16.1. INR 3.2. Lactic acid 2.1. At this time surgical and GI services have been consulted. Patient will be started on Rocephin. Coumadin will be held. On 09/07/2019 patient is alert and oriented 3. Cardiology services have been consulted for cardiac clearance prior to procedure. INR remains high at 3.2. Coumadin remains on hold. Surgical services have been consulted. Remains on Rocephin IV antibiotics. At this time patient is still having some abdominal pain. Patient denies chest pain or shortness breath. Patient denies nausea vomiting. Patient denies any urinary burning or frequency On 09/08/2019 patient was seen and examined on the medical floor he is alert and oriented 3 in no apparent distress he is still complaining of pain in the right upper quadrant otherwise he denies any complaints there is no fever or chills no headache or dizziness no chest pain no shortness of breath no cough no nausea or vomiting no diarrhea no burning was urination no frequency or urgency and no h ematuria On 09/09/2019 patient is alert and oriented 3 he is still complaining of right upper quadrant abdominal pain otherwise he denies any complaints there is no fever or chills no headache or dizziness no chest pain no shortness of breath no cough no nausea or vomiting no diarrhea no burning with urination no frequency or urgency and no hematuria. He is scheduled for laparoscopic cholecystectomy today with Dr. Willard. On 09/10/2019 patient is alert and oriented 3. Patient is status post laparoscopic cholecstectomy with drain placement with postoperative findings of acute cholecystitis with empyema of the gallbladder. Patient currently on Rocephin and Flagyl for IV antibiotics Dr. Paulino has been consulted for infectious disease. Patient still having some abdominal distention and discomfort. White blood cell count has normalized. She currently maintained on low-fat diet. Patient denies chest pain. Patient denies any shortness of breath. Patient denies nausea vomiting or diarrhea. Patient denies any urinary burning or frequency On 09/11/2019 patient is alert and oriented 3. Patient is currently postop day 2. Patient is eager to go home. Dr. Roldan was consulted for findings of empyema of the gallbladder antibiotics adjusted to Unasyn. Cultures currently pending. Patient still has not had a bowel movement. Colace has been added. Waiting for surgical clearance to resume Coumadin per cardiology for atrial fibrillation. At this time patient denies chest pain or shortness of breath. Patient denies any nausea or vomiting. Patient is complaining of some abdominal tenderness. Patient denies any urinary burning or frequency Objective - Vital Signs Vital signs: Vital Signs Temp 97.9 F 09/11/19 07:00 Pulse 63 09/11/19 07:00 Resp 16 09/11/19 07:00 BP 167/85 09/11/19 07:00 Pulse Ox 95 09/11/19 07:00 Intake & Output 09/10/19 09/11/19 09/11/19 18:59 06:59 18:59 Intake Total 390 650 Output Total 45 40 40 Balance 345 610 -40 Intake: Intake, IV Titration 390 60 Amount Sodium Chloride 0.9% 1, 240 60 000 ml @ 60 mls/hr IV . [id number] [facility] Rx#:[id number] cefTRIAXone 1 gm In 50 Sodium Chloride 0.9% 50 ml @ 100 mls/hr IVPB Q24HR [facility] Rx#:[id number] metroNIDAZOLE-NS PMX 500 100 mg In Saline 1 100ml.bag @ 100 mls/hr IVPB Q8HR [facility] Rx#:[id number] Oral 590 Output: Drainage 45 40 40 Right 45 40 40 Other: Voiding Method Toilet Toilet Toilet Urinal Urinal Urinal # Voids 2 - Exam Head normocephalic Neck supple Lungs clear to auscultation bilaterally no wheezing or crackles Heart irregular rhythm. known atrial fibrillation Abdomen is soft and rounded. Incisional dressings clean dry and intact. MARLENE drain serosanguineous fluid mild distention noted Extremities no edema Neuro alert and orientated to 3 - Labs CBC & Chem 7: 09/11/19 07:36 09/11/19 07:36 Labs: Abnormal Lab Results - Last 24 Hours (Table) 09/10/19 09/10/19 09/10/19 Range/Units 11:34 16:33 20:33 Lymphocytes # (1.0-4.8) k/uL Potassium (3.5-5.1) mmol/L Chloride (98-107) mmol/L Carbon Dioxide (22-30) mmol/L Glucose (74-99) mg/dL POC Glucose (mg/dL) 211 H 231 H 211 H (75-99) mg/dL Total Protein (6.3-8.2) g/dL Albumin (3.5-5.0) g/dL 09/11/19 09/11/19 09/11/19 Range/Units 06:38 07:36 07:36 Lymphocytes # 0.9 L (1.0-4.8) k/uL Potassium 3.3 L (3.5-5.1) mmol/L Chloride 113 H (98-107) mmol/L Carbon Dioxide 21 L (22-30) mmol/L Glucose 160 H (74-99) mg/dL POC Glucose (mg/dL) 155 H (75-99) mg/dL Total Protein 5.3 L (6.3-8.2) g/dL Albumin 2.9 L (3.5-5.0) g/dL Microbiology - Last 24 Hours (Table) 09/09/19 09:56 Gram Stain - Preliminary Other - Other Wound Culture - Preliminary Gram Neg Bacilli Assessment and Plan Assessment: 1. Abdominal pain secondary to acute cholecystitis with leukocytosis and elevated lactic acid. Abdominal CT completed showing inflammation centered at the right upper quadrant with hydropic gallbladder and cholelithiasis. Findings suggest acute cholecystitis. Inflammation mild fluid tracks down the right side of the abdomen. Borderline AAA at 3.0 cm mild to moderate superficial bladder wall thickening may represent chronic bladder hypertrophy correlate to exclude cystitis. Patient started on Rocephin. Surgical and GI services have been consulted. Lactic 0.6. Status post laparoscopic cholecystectomy postop day 2. Patient maintained on low-fat diet 2. Empyema of the gallbladder. Dr. Roldan has been consulted. Infectious disease is following. Antibiotics adjusted to Unasyn and Flagyl. Culture is pending 3. History of paroxysmal atrial fibrillation. Continue Coumadin. INR 3.2 Coumadin on hold for possible surgical intervention. Patient was evaluated by cardiology services prior to surgery. Per cardiology LV function and 2-D echo will preserved resume his Coumadin as soon as possible after surgery and cardiac medications. Awaiting surgical clearance to resume Coumadin 4. History of CVA 5. History of diabetes mellitus type 2. sliding scale coverage ordered. home oral agents on hold 6. Hyperlipidemia. Maintained on statin 7. History of essential hypertension DVT prophylaxis heparin GI prophylaxis Protonix Surgical, infectious disease and cardiology services following Patient maintained on Unasyn and Flagyl, culture pending Awaiting surgical clearance to resume Coumadin for atrial fibrillation Dr. BARBARA Toro will be covering for Dr. Walker September 12 through September 16 I performed an examination of the patient and discussed their management with laureano ervin Nurse Practitioner. I have reviewed the Nurse Practitioner's notes and agree with the documented findings and plan of care
[2019-09-11 11:40] LABS: Glucose,Whole Blood 193 mg/dL (75-99)
--- NOTE | 2019-09-11 11:48 | P.PN ---
Subjective Progress Note Date: 09/11/19 This is a pleasant 69-year-old gentleman who follows with Dr. Mendoza in the office. He has a known history of paroxysmal atrial fibrillation, anticoagulated on Coumadin, mild CAD documented by coronary angiography in 2016, hypertension, diabetes mellitus, and hyperlipidemia. Presented to the hospital with complaints of severe abdominal discomfort that started on September 04. Computed tomography scan of the abdomen showed inflammation centered at the right upper quadrant with hydropic gallbladder and cholelithiasis, findings suggest acute cholecystitis, inflammation and mild fluid tracks down the right side of the abdomen, borderline AAA at 3.0 cm and mild to moderate circumferential bladder wall thickening which may represent chronic bladder hypertrophy. EKG showed sinus rhythm. Patient was seen and examined by Dr. Ignacio who recommends a laparoscopic cholecystectomy. INR on admission was 3.1, today 3.2. Patient continues to have significant abdominal discomfort located mostly in the right upper quadrant with significant tenderness to palpation. Laboratory values show a white blood cell count of 16,600, BUN 13, creatinine 0.76, total bilirubin 1.9 with normal ALTs, AST and alkaline phosphatase and normal amylase and lipase. Mr. Vázquez has not had complaints of shortness of breath, chest discomfort, palpitations, orthopnea, PND, or edema. Current home medications include isosorbide 60 mg by mouth daily, enalapril 2.5 mg by mouth daily, atenolol 25 mg by mouth daily, Cardura 2 mg by mouth daily, Rythmol 150 mg by mouth 3 times a day, Coumadin 7.5 mg by mouth daily except for Sundays when he takes 10 mg, Lipitor 40 mg by mouth daily, metformin, Requip, Prilosec, Ultram and Amaryl. 09/10/2019 Patient was seen and examined today sitting up in a chair visiting with his wif nancy. Overall, from a cardiac standpoint the patient is doing well. He does complain of some abdominal discomfort as he has postop day #1 from laparoscopic cholecystectomy. He has been up ambulating. He denies any shortness of breath, dizziness, lightheadedness, or syncope. He has not been passing flatus and has not had a bowel movement. His Coumadin has not been resumed. INR today 1.1. 09/11/2019 Patient was seen and examined today sitting up resting comfortably in bed. Overall he is feeling quite a bit better today. He is passing small amounts of gas. From a cardiac standpoint the patient is relatively stable. He has noticed some increase in edema in his lower extremities. He has been up and voiding without difficulties. He denies any shortness of breath, dizziness, lightheadedness or syncope. His Coumadin has not yet been resumed. Objective - Vital Signs Vital signs: Vital Signs Temp 97.9 F 09/11/19 07:00 Pulse 63 09/11/19 07:00 Resp 16 09/11/19 07:00 BP 167/85 09/11/19 07:00 Pulse Ox 95 09/11/19 07:00 Intake & Output 09/10/19 09/11/19 09/11/19 18:59 06:59 18:59 Intake Total 390 650 Output Total 45 40 40 Balance 345 610 -40 Intake: Intake, IV Titration 390 60 Amount Sodium Chloride 0.9% 1, 240 60 000 ml @ 60 mls/hr IV . [id number] [facility] Rx#:[id number] cefTRIAXone 1 gm In 50 Sodium Chloride 0.9% 50 ml @ 100 mls/hr IVPB Q24HR [facility] Rx#:[id number] metroNIDAZOLE-NS PMX 500 100 mg In Saline 1 100ml.bag @ 100 mls/hr IVPB Q8HR [facility] Rx#:[id number] Oral 590 Output: Drainage 45 40 40 Right 45 40 40 Other: Voiding Method Toilet Toilet Toilet Urinal Urinal Urinal # Voids 2 - Exam PHYSICAL EXAMINATION: HEENT: Head is atraumatic, normocephalic. Pupils equal, round. Neck is supple. There is no elevated jugular venous pressure. HEART EXAMINATION: Heart sounds regular, S1 and S2 with a systolic murmur at the base. CHEST EXAMINATION: Lungs are clear to auscultation. No chest wall tenderness is noted on palpation or with deep breathing. ABDOMEN: Soft, some distention noted, nontender. Bowel sounds are heard. No organomegaly noted. EXTREMITIES: 2+ peripheral pulses with evidence of mild peripheral edema and no calf tenderness noted. NEUROLOGIC patient is awake, alert and oriented x3. - Labs CBC & Chem 7: 09/11/19 07:36 09/11/19 07:36 Labs: Abnormal Lab Results - Last 24 Hours (Table) 09/10/19 09/10/1909/11/19 Range/Units 16:33 20:33 06:38 Lymphocytes # (1.0-4.8) k/uL Potassium (3.5-5.1) mmol/L Chloride (98-107) mmol/L Carbon Dioxide (22-30) mmol/L Glucose (74-99) mg/dL POC Glucose (mg/dL) 231 H 211 H 155 H (75-99) mg/dL Total Protein (6.3-8.2) g/dL Albumin (3.5-5.0) g/dL 09/11/19 09/11/19 09/11/19 Range/Units 07:36 07:36 11:35 Lymphocytes # 0.9 L (1.0-4.8) k/uL Potassium 3.3 L (3.5-5.1) mmol/L Chloride 113 H (98-107) mmol/L Carbon Dioxide 21 L (22-30) mmol/L Glucose 160 H (74-99) mg/dL POC Glucose (mg/dL) 193 H (75-99) mg/dL Total Protein 5.3 L (6.3-8.2) g/dL Albumin 2.9 L (3.5-5.0) g/dL Microbiology - Last 24 Hours (Table) 09/09/19 09:56 Gram Stain - Preliminary Other - Other Wound Culture - Preliminary Gram Neg Bacilli Assessment and Plan Assessment: #1 acute cholecystitis, status post laparoscopic cholecystectomy #2 paroxysmal atrial fibrillation, warfarin has been on hold for surgery #3 mild CAD #4 hypertension #5 hyperlipidemia #6 type 2 diabetes mellitus Plan: From pediatrician managing partner perspective, resume warfarin 5 mg by mouth tonight if okay with Dr. Willard. I discussed with the RN, Fransisco, caring for the patient who will notify Dr. Willard regarding resuming warfarin. Patient does have more edema than usual, we will give 1 dose of IV Lasix now. If warfarin is resumed tonight, will follow the patient on an as-needed basis. CONSUMER RECRUITER note has been reviewed, I agree with a documented findings and plan of care. Patient was seen and examined.
--- NOTE | 2019-09-11 13:05 | P.PN ---
Subjective Progress Note Date: 09/11/19 Patient's pain is significantly improved today. He is no longer requiring pain medication. No nausea vomiting. Objective - Vital Signs Vital signs: Vital Signs Temp 97.9 F 09/11/19 07:00 Pulse 63 09/11/19 07:00 Resp 16 09/11/19 07:00 BP 167/85 09/11/19 07:00 Pulse Ox 95 09/11/19 07:00 Intake & Output 09/10/19 09/11/19 09/11/19 18:59 06:59 18:59 Intake Total 390 650 Output Total 45 40 40 Balance 345 610 -40 Intake: Intake, IV Titration 390 60 Amount Sodium Chloride 0.9% 1, 240 60 000 ml @ 60 mls/hr IV . [id number] [facility] Rx#:[id number] cefTRIAXone 1 gm In 50 Sodium Chloride 0.9% 50 ml @ 100 mls/hr IVPB Q24HR [facility] Rx#:[id number] metroNIDAZOLE-NS PMX 500 100 mg In Saline 1 100ml.bag @ 100 mls/hr IVPB Q8HR [facility] Rx#:[id number] Oral 590 Output: Drainage 45 40 40 Right 45 40 40 Other: Voiding Method Toilet Toilet Toilet Urinal Urinal Urinal # Voids 2 - Constitutional General appearance: Present: cooperative - Respiratory Details: Nonlabored - Gastrointestinal Gastrointestinal Comment(s): Soft mild distention nontender. Incisions are clean dry and intact. MARLENE drain serosanguineous - Psychiatric Psychiatric: Present: A&O x's 3 - Labs CBC & Chem 7: 09/11/19 07:36 09/11/19 07:36 Labs: Abnormal Lab Results - Last 24 Hours (Table) 09/10/19 09/10/19 09/11/19 Range/Units 16:33 20:33 06:38 Lymphocytes # (1.0-4.8) k/uL Potassium (3.5-5.1) mmol/L Chloride (98-107) mmol/L Carbon Dioxide (22-30) mmol/L Glucose (74-99) mg/dL POC Glucose (mg/dL) 231 H 211 H 155 H (75-99) mg/dL Total Protein (6.3-8.2) g/dL Albumin (3.5-5.0) g/dL 09/11/19 09/11/19 09/11/19 Range/Units 07:36 07:36 11:35 Lymphocytes # 0.9 L (1.0-4.8) k/uL Potassium 3.3 L (3.5-5.1) mmol/L Chloride 113 H (98-107) mmol/L Carbon Dioxide 21 L (22-30) mmol/L Glucose 160 H (74-99) mg/dL POC Glucose (mg/dL) 193 H (75-99) mg/dL Total Protein 5.3 L (6.3-8.2) g/dL Albumin 2.9 L (3.5-5.0) g/dL Microbiology - Last 24 Hours (Table) 09/09/19 09:56 Gram Stain - Preliminary Other - Other Wound Culture - Preliminary Gram Neg Bacilli Assessment and Plan Assessment: Status post laparoscopic cholecystectomy Plan: Patient stable from a surgical standpoint. Antibiotic recommendations per ID. Patient may be discharged home with MARLENE drain which will be discontinued in the office per Dr. Willard.
[2019-09-11 16:53] LABS: Glucose,Whole Blood 219 mg/dL (75-99)
[2019-09-11] MEDS: HYDROcodone/APAP 5-325MG 1 EACH TAB PO PRN (21:10)
[2019-09-11 21:20] LABS: Glucose,Whole Blood 225 mg/dL (75-99)
--- NOTE | 2019-09-11 23:36 | PN ---
PROGRESS NOTE DATE OF SERVICE: 09/11/2019 REASON FOR FOLLOWUP: Gallbladder empyema. INTERVAL HISTORY: The patient is currently afebrile. The patient is breathing comfortably. The patient's abdominal pain has improved. Denies having any chest pain, shortness of breath or cough. No nausea, no vomiting. No diarrhea. PHYSICAL EXAMINATION: Blood pressure 168/89 with a pulse of 64, temperature 99.1. He is 96% on room air. General description is an elderly male up in the chair in no distress. RESPIRATORY SYSTEM: Unlabored breathing. Clear to auscultation anteriorly. HEART: S1, S2. Regular rate and rhythm. ABDOMEN: Soft. No tenderness. LABS: Hemoglobin is 14.6, white count 7.5. BUN of 13, creatinine 0.72. The abdominal culture finalized with an E coli that is a sensitive pathogen. DIAGNOSTIC IMPRESSION AND PLAN: Patient with acute cholecystitis with gallbladder empyema, status post laparoscopic cholecystectomy. Patient at this time is covered with Unasyn; to continue with the plan to finish therapy with oral antibiotics. Continue with supportive care. MMODL / IJN: [id number] /
[2019-09-12] MEDS: AMPICILLIN-SULBACTAM 3 GM in SODIUM CHLORIDE 0.9% 100 ML IVPB SCH ×2 (04:27→12:03)
[2019-09-12 06:56] LABS: Glucose,Whole Blood 157 mg/dL (75-99)
[2019-09-12] MEDS: PANTOPRAZOLE 40 MG TABLET PO SCH (07:05)
[2019-09-12] MEDS: DOXAZOSIN 2 MG TAB PO SCH (07:05)
[2019-09-12 07:06] LABS: Basophils % (A) 0 %; Eosinophils # (A) 0.2 k/uL (0-0.7); Eosinophils % (A) 3 %; HCT 40.9 % (39.0-53.0); HGB 14.1 gm/dL (13.0-17.5); Lymphocytes % (A) 14 %; MCH 32.4 pg (25.0-35.0); MCHC 34.6 g/dL (31.0-37.0); MCV 93.8 fL (80.0-100.0); Mean Platelet Volume 8.1; Monocytes # (A) 0.5 k/uL (0-1.0); Monocytes % (A) 7 %; Neutrophils # (A) 5.4 k/uL (1.3-7.7); Neutrophils % (A) 73 %; Platelet Count 225 k/uL (150-450); RBC 4.36 m/uL (4.30-5.90); RDW 12.9 % (11.5-15.5); WBC 7.4 k/uL (3.8-10.6)
[2019-09-12] MEDS: metroNIDAZOLE 500 MG TAB PO SCH (07:06)
[2019-09-12] MEDS: ATENOLOL 25 MG TAB PO SCH (07:06)
[2019-09-12] MEDS: ISOSORBIDE MONONITRATE ER 60 MG TAB.ER.24H PO SCH (07:06)
[2019-09-12] MEDS: HEPARIN SODIUM,PORCINE 5,000 UNIT/ML 1 ML VIAL SQ SCH (07:06)
[2019-09-12] MEDS: DOCUSATE 100 MG CAP PO SCH (07:06)
[2019-09-12] MEDS: LISINOPRIL 5 MG TAB PO SCH (07:06)
[2019-09-12] MEDS: ATORVASTATIN 40 MG TAB PO SCH (07:06)
[2019-09-12] MEDS: PROPAFENONE 150 MG TAB PO SCH (07:06)
[2019-09-12] MEDS: INSULIN ASPART (NovoLOG) 100 UNIT/ML VIAL SQ SCH ×2 (07:07→12:03)
[2019-09-12] MEDS: traMADol 50 MG TAB PO PRN (07:16)
[2019-09-12 07:19] LABS: ALT 27 U/L (4-49); AST 24 U/L (17-59); African American GFR (CKD) >90 (>60 ml/min/1.73 sqM); Albumin 2.8 g/dL (3.5-5.0); Alkaline Phosphatase 79 U/L (38-126); Anion Gap 8 mmol/L; Blood Urea Nitrogen 10 mg/dL (9-20); Calcium 9.1 mg/dL (8.4-10.2); Carbon Dioxide 19 mmol/L (22-30); Chloride 113 mmol/L (98-107); Glucose 145 mg/dL (74-99); Non-African American GFR(CKD) >90 (>60 ml/min/1.73 sqM); Potassium 3.6 mmol/L (3.5-5.1); Sodium 140 mmol/L (137-145); Total Bilirubin 1.1 mg/dL (0.2-1.3); Total Protein 5.2 g/dL (6.3-8.2)
[2019-09-12 08:18] VITALS: BP 168/96; PULSE 65; RESP 18; TEMP 97.8
[2019-09-12] MEDS ORDERED: FUROSEMIDE 10 MG/ML 4 ML VIAL IV STA (09:54)
[2019-09-12] MEDS ORDERED: POTASSIUM CHLORIDE ER 20 MEQ TAB.ER PO STA (09:55)
[2019-09-12] MEDS ORDERED: LISINOPRIL 5 MG TAB PO ONE (10:00)
[2019-09-12 11:59] LABS: Glucose,Whole Blood 202 mg/dL (75-99)
--- NOTE | 2019-09-12 12:11 | P.PN ---
Subjective Progress Note Date: 09/12/19 Principal diagnosis: PAF PROGRESS NOTE: 09/12/2018 Patient seen this day ambulating around the room comfortably in no acute distress. Patient has no current complaints of chest pain, chest pressure, shortness of breath or palpitations. No SOB with ambuation. Patient does have complaints of significant lower extremity edema. Patient blood pressure also elevated this day 186/106, 168/96. CBC WNL. BMP WNL except K+ remains low at 3.6. Patient eating and drinking well. Patient also voiding, passing gas and moving his bowels. Recent echo shows mildly decreased EF at 50-55%. Patient anticoagulated with Coumadin at home. No current complaints. PHYSICAL EXAMINATION: HEENT: Head is atraumatic, normocephalic. Pupils are equal, round. Sclerae anicteric. Conjunctivae are clear. Mucous membranes of the mouth are moist. Neck is supple. There is no jugular venous distention. No carotid bruit is heard. No thyromegaly. LUNGS: Course crackles to bilateral lung bases with auscultation. No wheezes, rales or rhonchi. No chest wall tenderness is noted on palpation or with deep breathing. HEART: Irregular rhythm and controlled rate. No murmurs, rubs or gallops. S1 and S2 heard. ABDOMEN: Abdominal exam revealed normal bowel sounds. The abdomen was soft, tender, and without masses, organomegaly, or appreciable enlargement of the abdominal aorta. Lap/appy incision noted/bandaged. EXTREMITIES: Examination of the extremities revealed easily palpable radial, femoral and pedal pulses. There was no cyanosis, clubbing. 3+ edema noted to BLE. No calf tenderness noted. VASCULAR: Radial and dorsalis pedis pulses palpated, no evidence of clubbing. NEUROLOGIC: Patient is awake, alert and oriented x3. There were no obvious focal neurologic abnormalities. LAB DATA: CBC WNL. BMP WNL except K+ remains low at 3.6. FINAL IMPRESSION: 1. Acute cholecystitis, status post laparoscopic cholecystectomy and doing well 2. Paroxysmal atrial fibrillation, anticoagulated with Coumadin restart per surgery 3. Mild CAD 4. Hypertension 5. Hyperlipidemia 6. Fluid overload PLAN: Start IV Lasix 40 mg once. Start potassium 40 M EQ's once with IV Lasix. Start daily PO Lasix 20 mg daily on 09/13/2019. Start 20 of potassium twice daily this evening at hour of sleep. Increase lisinopril to 10 mg once daily. Continue same all other medical/medication regime. Clear from cardiology standpoint for discharge. Patient to follow up with Dr. Mendoza in office in 1-2 weeks. Objective - Vital Signs Vital signs: Vital Signs Temp 97.8 F 09/12/19 07:00 Pulse 65 09/12/19 07:00 Resp 18 09/12/19 07:00 BP 168/96 09/12/19 07:00 Pulse Ox 95 09/12/19 07:00 Intake & Output 09/11/19 09/12/19 09/12/19 18:59 06:59 18:59 Intake Total 930 Output Total 40 80 20 Balance -40 850 -20 Intake: Intake, IV Titration 60 Amount Sodium Chloride 0.9% 1, 60 000 ml @ 60 mls/hr IV . [id number] [facility] Rx#:[id number] Oral 870 Output: Drainage 40 80 20 Right 40 80 20 Other: Voiding Method Toilet Toilet Toilet Urinal Urinal Urinal # Voids 2 2 - Labs CBC & Chem 7: 09/12/19 06:24 09/12/19 06:24 Labs: Abnormal Lab Results - Last 24 Hours (Table) 09/11/19 09/11/19 09/12/19 Range/Units 16:42 21:19 06:24 Chloride 113 H (98-107) mmol/L Carbon Dioxide 19 L (22-30) mmol/L Glucose 145 H (74-99) mg/dL POC Glucose (mg/dL) 219 H 225 H (75-99) mg/dL Total Protein 5.2 L (6.3-8.2) g/dL Albumin 2.8 L (3.5-5.0) g/dL 09/12/19 09/12/19 Range/Units 06:54 11:57 Chloride (98-107) mmol/L Carbon Dioxide (22-30) mmol/L Glucose (74-99) mg/dL POC Glucose (mg/dL) 157 H 202 H (75-99) mg/dL Total Protein (6.3-8.2) g/dL Albumin (3.5-5.0) g/dL Microbiology - Last 24 Hours (Table) 09/09/19 09:56 Anaerobic Culture - Preliminary Other - Other 09/09/19 09:56 Gram Stain - Final Other - Other Wound Culture - Final Escherichia coli
--- NOTE | 2019-09-12 12:43 | P.PN ---
Subjective Progress Note Date: 09/12/19 Patient's pain is significantly improved today. He is no longer requiring pain medication. No nausea vomiting. Objective - Vital Signs Vital signs: Vital Signs Temp 97.8 F 09/12/19 07:00 Pulse 65 09/12/19 07:00 Resp 18 09/12/19 07:00 BP 168/96 09/12/19 07:00 Pulse Ox 95 09/12/19 07:00 Intake & Output 09/11/19 09/12/19 09/12/19 18:59 06:59 18:59 Intake Total 930 Output Total 40 80 20 Balance -40 850 -20 Intake: Intake, IV Titration 60 Amount Sodium Chloride 0.9% 1, 60 000 ml @ 60 mls/hr IV . [id number] [facility] Rx#:[id number] Oral 870 Output: Drainage 40 80 20 Right 40 80 20 Other: Voiding Method Toilet Toilet Toilet Urinal Urinal Urinal # Voids 2 2 - Constitutional General appearance: Present: cooperative - Respiratory Details: Nonlabored - Gastrointestinal Gastrointestinal Comment(s): Soft nondistended nontender incisions are clean dry and intact MARLENE drain is serosanguineous - Labs CBC & Chem 7: 09/12/19 06:24 09/12/19 06:24 Labs: Abnormal Lab Results - Last 24 Hours (Table) 09/11/19 09/11/19 09/12/19 Range/Units 16:42 21:19 06:24 Chloride 113 H (98-107) mmol/L Carbon Dioxide 19 L (22-30) mmol/L Glucose 145 H (74-99) mg/dL POC Glucose (mg/dL) 219 H 225 H (75-99) mg/dL Total Protein 5.2 L (6.3-8.2) g/dL Albumin 2.8 L (3.5-5.0) g/dL 09/12/19 09/12/19 Range/Units 06:54 11:57 Chloride (98-107) mmol/L Carbon Dioxide (22-30) mmol/L Glucose (74-99) mg/dL POC Glucose (mg/dL) 157 H 202 H (75-99) mg/dL Total Protein (6.3-8.2) g/dL Albumin (3.5-5.0) g/dL Microbiology - Last 24 Hours (Table) 09/09/19 09:56 Anaerobic Culture - Preliminary Other - Other 09/09/19 09:56 Gram Stain - Final Other - Other Wound Culture - Final Escherichia coli Assessment and Plan Assessment: Status post laparoscopic cholecystectomy Plan: Patient stable from a surgical standpoint. Antibiotic recommendations per ID. Patient may be discharged home with MARLENE drain which will be discontinued in the office per Dr. Willard.
--- NOTE | 2019-09-12 16:41 | PN ---
PROGRESS NOTE DATE OF SERVICE: 09/12/2019 REASON FOR FOLLOWUP: Acute gangrenous cholecystitis with gallbladder empyema. INTERVAL HISTORY: The patient is currently afebrile. Patient is breathing comfortably. Patient denies having any chest pain or any cough. No nausea, vomiting. Abdominal pain has improved. No diarrhea. PHYSICAL EXAMINATION: Blood pressure 138/96, pulse of 55, temperature 97.8. He is 95% on room air. General description is an elderly male up in the chair in no distress. Respiratory system: Unlabored breathing, clear to auscultation anteriorly. Heart S1, S2. Regular rate and rhythm. Abdomen soft, no tenderness. LABS: Hemoglobin is 14, white count 10.4, BUN of 10, creatinine 0.66. DIAGNOSTIC IMPRESSION AND PLAN: Patient with acute gangrenous cholecystitis with status post laparoscopic cholecystectomy. All blood culture with E coli sensitive pathogen. Patient improved on Unasyn. White count normal, to finish therapy with oral Augmentin for another 7 days. Continue supportive care. MMODL / IJN: [id number] /
[2019-09-12] MEDS ORDERED: POTASSIUM CHLORIDE ER 20 MEQ TAB.ER PO SCH (21:00)
--- NOTE | 2019-09-13 08:51 | DS ---
DISCHARGE SUMMARY I am covering for Dr. Andrew Walker Luis Vázquez is a 69-year-old male who presented to the ER at [facility] on August2018. At that time, he had been complaining of abdominal pain for about 2 days. He subsequently was found to have an acute cholecystitis. He had elevation in his lactate as well at the time. PAST MEDICAL HISTORY: Positive for CVA, TIA, diabetes mellitus, hyperlipidemia, hypertension, kidney stones, right foot bunionectomy. FAMILY HISTORY: Positive for diabetes mellitus in his mother. PHYSICAL EXAMINATION: His temperature is 99.4, respiratory rate of 19, pulse rate 81, blood pressure 160/94, O2 saturation was 96%. HEENT was unremarkable. Lungs were clear. Heart revealed a regular rhythm. Abdomen was soft. There was no edema. INITIAL IMPRESSION: 1. Abdominal pain secondary to acute cholecystitis. 2. Atrial fibrillation. 3. Previous cerebrovascular accident. 4. Diabetes mellitus. 5. Hyperlipidemia. The patient subsequently was taken to the operating room by Dr. Willard on September 09, 2019. He underwent laparoscopic cholecystectomy with drain placement due to acute cholecystitis with empyema of the gallbladder. The patient was seen by Cardiology in [place] and has been doing well. Today he has no abdominal pain. He is not short of breath. He is sitting in a chair and he is on a normal diet at this time. His respiratory rate is 18, pulse rate of 65, temperature 97.8, blood pressure 168/96, O2 saturation on room air is 95%. HEENT is unremarkable. Chest is clear. Cardiovascular system revealed an S1, S2. Abdomen is soft. The drain in place. There is no pedal edema. LABS: Reviewed. The patient will be discharged home today with followup with Dr. Terra Willard in [address] Andrew Walker in 1 weeks time. CONDITION: Stable. His diet is cardiac. ACTIVITY: As tolerated. DISCHARGE MEDICATIONS: 1. Ropinirole 2 mg p.o. q.h.s. 2. Metformin 1000 mg p.o. b.i.d. 3. Multivitamin 1 tab p.o. daily. 4. Lipitor 40 mg p.o. daily. 5. Coumadin 7.5 mg Tuesday, Tuesday, Tuesday, , Tuesday, Tuesday, 10 mg on Tuesday. 6. Rythmol 150 mg p.o. b.i.d. 7. Omeprazole 20 mg p.o. daily. 8. Tramadol 50 mg p.o. t.i.d. p.r.n. 9. Amaryl 4 mg p.o. daily. 10.Cardura 2 mg p.o. daily. 11.Vasotec 2.5 mg p.o. daily. 12.Atenolol 25 mg p.o. daily. 13.Imdur ER 60 mg p.o. daily. 14.Amoxicillin with clavulanate in the form of Augmentin 875 mg p.o. b.i.d. for 6 days. Condition is stable. Activity as tolerated. MMODL / IJN: [id number] /
[2019-09-13] MEDS ORDERED: LISINOPRIL 10 MG TAB PO SCH (09:00)
[2019-09-13] MEDS ORDERED: FUROSEMIDE 20 MG TAB PO SCH (09:00)
== END 2019-09-12 13:50 | disposition home health service (06) | DRG 418 ==
LOC: EC 10:01 → 4SSUR 14:46 → OBSVTOIN 09-08 13:54 → 4SSUR 09-11 21:54
PROVIDERS: ADMIT Internal Medicine; ATTEND Internal Medicine
PROC: 0FT44ZZ Resection of Gallbladder, Percutaneous Endoscopic Approach (ICD-10-PCS; principal; 2019-09-09 08:00)
DX: K80.00 Calculus of gallbladder with acute cholecystitis without obstruction (principal); K82.1 Hydrops of gallbladder; I25.110 Atherosclerotic heart disease of native coronary artery with unstable angina pectoris; E78.5 Hyperlipidemia, unspecified; E11.65 Type 2 diabetes mellitus with hyperglycemia; F17.200 Nicotine dependence, unspecified, uncomplicated; I10 Essential (primary) hypertension; I48.0 Paroxysmal atrial fibrillation; I71.4 Abdominal aortic aneurysm, without rupture; N40.0 Benign prostatic hyperplasia without lower urinary tract symptoms; Z79.01 Long term (current) use of anticoagulants; Z79.84 Long term (current) use of oral hypoglycemic drugs; Z79.899 Other long term (current) drug therapy; Z83.3 Family history of diabetes mellitus; Z86.73 Personal history of transient ischemic attack (TIA), and cerebral infarction without residual deficits; Z87.442 Personal history of urinary calculi; Z98.41 Cataract extraction status, right eye
CPT/HCPCS: 36415; 74177; 80053; 81001; 82150; 82248; 83605; 83690; 85025; 85610; 85730; 87070; 87075; 87077; 87186; 87205; 88304; 93005; 93306; 96361; 96374; 96375; 96376; 99285

== ENCOUNTER 2020-07-25 12:41 | Emergency (ER) | payer MEDICARE ==
[2020-07-25 12:54] VITALS: BP 134/85; PULSE 56; RESP 18; TEMP 97.6
--- NOTE | 2020-07-25 12:55 | ED ---
Fall HPI - General Chief Complaint: Fall Stated Complaint: Fall Time Seen by Provider: 07/25/20 12:55 Source: patient Mode of arrival: wheelchair - History of Present Illness Initial Comments: 69-year-old male presenting to emergency department with a chief complaint of a fall. Patient states he was walking down the stairs when he tripped over the last step and fell on the right side of the body. Patient denies any loss of consciousness. States that he broke his glasses and has an abrasion on the right supraorbital region. Patient also reports significant pain in the right flank region. He also reports pain with full inspiration. He denies any bruising in the region. Denies any nausea vomiting. States that he typically takes Coumadin although he has been off of it for about one week due to oral surgery. He did not take any medication to alleviate the symptoms. He also reports pain in the right knee there is exacerbated with ambulation although he reports full range of motion in the right knee. - Related Data Home Medications Medication Instructions Recorded Confirmed Doxazosin [Cardura] 2 mg PO DAILY 04/02/16 07/25/20 Enalapril [Vasotec] 2.5 mg PO DAILY 04/02/16 07/25/20 Isosorbide Mononitrate ER [Imdur] 60 mg PO DAILY 04/02/16 07/25/20 Propafenone [Rythmol] 150 mg PO TID 04/02/16 07/25/20 Warfarin [Coumadin] 7.5 mg PO HS 04/02/16 07/25/20 atenoloL [Atenolol] 25 mg PO DAILY 04/02/16 07/25/20 Omeprazole Magnesium [PriLOSEC OTC] 20 mg PO DAILY 07/06/17 07/25/20 Glimepiride [Amaryl] 4 mg PO DAILY 04/17/19 07/25/20 Multivitamins, Thera [Multivitamin 1 tab PO DAILY 04/17/19 07/25/20 (formulary)] traMADol HCL [Ultram] 50 mg PO Q8H PRN 04/17/19 07/25/20 Atorvastatin [Lipitor] 40 mg PO DAILY 09/06/19 07/25/20 metFORMIN HCL 1,000 mg PO BID 09/06/19 07/25/20 rOPINIRole HCL [Requip] 2 mg PO HS 09/06/19 07/25/20 Ergocalciferol [Vitamin D2] 50,000 unit PO Q7D 07/25/20 07/25/20 Furosemide [Lasix] 20 mg PO DAILY 07/25/20 07/25/20 Pioglitazone [Actos] 30 mg PO DAILY 07/25/20 07/25/20 Allergies Allergy/AdvReac Type Severity Reaction Status Date / Time hydromorphone HCl AdvReac Hallucinati Verified 07/25/20 13:50 [From Dilaudid] ons Review of Systems ROS Statement: Those systems with pertinent positive or pertinent negative responses have been documented in the HPI. ROS Other: All systems not noted in ROS Statement are negative. Past Medical History Past Medical History: Atrial Fibrillation, CVA/TIA, Diabetes Mellitus, Hyper lipidemia, Hypertension Additional Past Medical History / Comment(s): NIDDM, kidney stones History of Any Multi-Drug Resistant Organisms: None Reported Past Surgical History: No Surgical Hx Reported Additional Past Surgical History / Comment(s): 2008 normal heart cath, EGD/colonoscopy, R lower eyelid sx, R cataract removal, R foot bunionectomy. Past Anesthesia/Blood Transfusion Reactions: No Reported Reaction Past Psychological History: No Psychological Hx Reported Smoking Status: Current every day smoker Past Alcohol Use History: None Reported Past Drug Use History: None Reported - Past Family History Mother Family Medical History: Diabetes Mellitus Additional Family Medical History / Comment(s): Mother haad heart problems. Father History Unknown: Yes Additional Family Medical History / Comment(s): Pt does not know his father's health hx. General Exam Limitations: no limitations General appearance: alert, in no apparent distress Head exam: Present: atraumatic, normocephalic, normal inspection. Absent: other (Negative Garcia sign, raccoon eyes, hemotympanum.) Eye exam: Present: normal appearance, PERRL, EOMI. Absent: scleral icterus, conjunctival injection, nystagmus, other (Small abrasion to the right supraorbital region.) Pupils: Present: normal accommodation ENT exam: Present: normal exam, normal oropharynx, mucous membranes moist, TM's normal bilaterally, normal external ear exam Neck exam: Present: normal inspection, full ROM. Absent: tenderness Respiratory exam: Present: normal lung sounds bilaterally, chest wall tenderness (Right lateral chest wall tenderness to right upper flank region tenderness to palpation.). Absent: respiratory distress, wheezes, rales, rhonchi, stridor Cardiovascular Exam: Present: regular rate, normal rhythm, normal heart sounds. Absent: bradycardia, tachycardia, irregular rhythm, systolic murmur GI/Abdominal exam: Present: soft, tenderness (Right upper quadrant tenderness). Absent: distended, rebound Extremities exam: Present: normal inspection, full ROM, tenderness (Slight t enderness to palpation in the infrapatellar aspect right knee.), normal capillary refill, other (+2 dorsalis pedis and posterior tibial as bilaterally. Sensation intact in the right lower extremity.). Absent: pedal edema, joint swelling, calf tenderness Back exam: Present: normal inspection, full ROM. Absent: tenderness, CVA tenderness (R), CVA tenderness (L) Neurological exam: Present: alert, oriented X3 Psychiatric exam: Present: normal affect, normal mood. Absent: depressed, agitated Skin exam: Present: warm, dry, intact, normal color Course Vital Signs 07/25/20 12:47 Temperature 97.6 F Pulse Rate 56 L Respiratory 18 Rate Blood Pressure 134/85 O2 Sat by Pulse 95 Oximetry Medical Decision Making - Medical Decision Making 69-year-old male presenting to the emergency department with chief complaint of a fall. On physical examination, patient has an abrasion the right supraorbital region. His tetanus is up-to-date. Tenderness to palpation in the right upper flank region, right upper quadrant and right sided chest wall pain to palpation. No signs of ecchymosis or swelling noted. There was no loss of consciousness. Brain and C-spine CT without contrast reveals no acute processes. CT of the chest abdomen pelvis with contrast performed shows no signs of bleeding or other acute findings. Patient has not taken his Coumadin for 1 week secondary to an oral procedure. CBC CMP and coags within normal limits. Patient was offered analgesia, I declined. He was advised to keep taking deep breaths in order to prevent developing any atelectasis or pneumonia. Strict return parameters were thoroughly discussed with patient is understanding and agreeable. He was advised to follow-up with primary care physician. Case discussed with physician. - Lab Data Result diagrams: 07/25/20 13:11 07/25/20 13:11 Lab Results 07/25/20 07/25/20 07/25/20 Range/Units 13:11 13:11 13:11 WBC 7.9 (3.8-10.6) k/uL RBC 4.78 (4.30-5.90) m/uL Hgb 16.1 (13.0-17.5) gm/dL Hct 45.5 (39.0-53.0) % MCV 95.1 (80.0-100.0) fL MCH 33.7 (25.0-35.0) pg MCHC 35.4 (31.0-37.0) g/dL RDW 12.7 (11.5-15.5) % Plt Count 177 (150-450) k/uL MPV 7.4 Neutrophils % 74 % Lymphocytes % 16 % Monocytes % 5 % Eosinophils % 3 % Basophils % 1 % Neutrophils # 5.8 (1.3-7.7) k/uL Lymphocytes # 1.2 (1.0-4.8) k/uL Monocytes # 0.4 (0-1.0) k/uL Eosinophils # 0.3 (0-0.7) k/uL Basophils # 0.1 (0-0.2) k/uL PT 11.0 (9.0-12.0) sec INR 1.1 (<1.2) APTT 24.3 (22.0-30.0) sec Sodium 140 (137-145) mmol/L Potassium 3.8 (3.5-5.1) mmol/L Chloride 105 (98-107) mmol/L Carbon Dioxide 27 (22-30) mmol/L Anion Gap 8 mmol/L BUN 15 (9-20) mg/dL Creatinine 0.84 (0.66-1.25) mg/dL Est GFR (CKD-EPI)AfAm >90 (>60 ml/min/1.73 sqM) Est GFR (CKD-EPI)NonAf 89 (>60 ml/min/1.73 sqM) Glucose 164 H (74-99) mg/dL Calcium 10.0 (8.4-10.2) mg/dL Total Bilirubin 1.1 (0.2-1.3) mg/dL AST 25 (17-59) U/L ALT 23 (4-49) U/L Alkaline Phosphatase 71 (38-126) U/L Total Protein 6.5 (6.3-8.2) g/dL Albumin 4.1 (3.5-5.0) g/dL Disposition Clinical Impression: Fall, Head injury, Right flank pain Disposition: HOME SELF-CARE Condition: Stable Instructions (If sedation given, give patient instructions): Fall Prevention (ED) Additional Instructions: Alternate between Tylenol and Motrin for pain control. Follow with her primary care physician. Return to the department if symptoms worsen. Is patient prescribed a controlled substance at d/c from ED?: No Referrals: Andrew Walker MD [Primary Care Provider] - 1-2 days Time of Disposition: 15:11
[2020-07-25 13:31] LABS: Basophils # (A) 0.1 k/uL (0-0.2); Basophils % (A) 1 %; Eosinophils # (A) 0.3 k/uL (0-0.7); Eosinophils % (A) 3 %; HCT 45.5 % (39.0-53.0); HGB 16.1 gm/dL (13.0-17.5); Lymphocytes # (A) 1.2 k/uL (1.0-4.8); Lymphocytes % (A) 16 %; MCH 33.7 pg (25.0-35.0); MCHC 35.4 g/dL (31.0-37.0); MCV 95.1 fL (80.0-100.0); Mean Platelet Volume 7.4; Monocytes # (A) 0.4 k/uL (0-1.0); Monocytes % (A) 5 %; Neutrophils # (A) 5.8 k/uL (1.3-7.7); Neutrophils % (A) 74 %; Platelet Count 177 k/uL (150-450); RBC 4.78 m/uL (4.30-5.90); RDW 12.7 % (11.5-15.5); WBC 7.9 k/uL (3.8-10.6)
[2020-07-25 13:42] LABS: ALT 23 U/L (4-49); AST 25 U/L (17-59); African American GFR (CKD) >90 (>60 ml/min/1.73 sqM); Albumin 4.1 g/dL (3.5-5.0); Alkaline Phosphatase 71 U/L (38-126); Anion Gap 8 mmol/L; Blood Urea Nitrogen 15 mg/dL (9-20); Carbon Dioxide 27 mmol/L (22-30); Chloride 105 mmol/L (98-107); Glucose 164 mg/dL (74-99); Non-African American GFR(CKD) 89 (>60 ml/min/1.73 sqM); Potassium 3.8 mmol/L (3.5-5.1); Sodium 140 mmol/L (137-145); Total Bilirubin 1.1 mg/dL (0.2-1.3); Total Protein 6.5 g/dL (6.3-8.2)
[2020-07-25 13:44] LABS: INR 1.1 (<1.2); Partial Thromboplastin Time 24.3 sec (22.0-30.0)
--- NOTE | 2020-07-25 14:44 | CT ---
EXAMINATION TYPE: CT brain trung thompson con DATE OF EXAM: 07/25/2020 COMPARISON: None HISTORY: Fall, trauma and pain CT DLP: 1379.2 mGycm Automated exposure control for dose reduction was used. TECHNIQUE: CT scan of the head and cervical spine are performed without contrast. FINDINGS: There is no acute intracranial hemorrhage, mass effect, or midline shift identified. The ventricles and sulci are within normal limits in size. The globes are intact and the visualized sin uses are clear. Cortical atrophy is present. There are cerebral vascular calcifications. Periventricu lar white matter shows patchy low attenuation. Cervical spine is visualized in its entirety from C1 through upper thoracic levels and demonstrates s atisfactory alignment without evidence of acute fracture or dislocation. Prevertebral soft tissue ap pears within normal limits. The C1-C2 articulation is unremarkable. There is multilevel spondylosis. Loss of disc height at intervertebral levels is present. Multilevel foraminal encroachment. Posteri or neck skin thickening is noted incidentally. There is some spinal stenosis noted at C3-4, C4-5 IMPRESSION: 1. There is no acute fracture or dislocation evident in the cervical spine. 2. No acute intracranial hemorrhage, mass effect, or midline shift is seen.
--- NOTE | 2020-07-25 14:50 | CT ---
EXAMINATION TYPE: CT ChestAbdPelvis w con DATE OF EXAM: 07/25/2020 COMPARISON: CT abdomen pelvis 08/27/2019 HISTORY: Fall. Trauma. Right flank pain and RUQ pain. Patient on Warfarin CT DLP: 1345.9 mGycm Automated exposure control for dose reduction was used. CONTRAST: CT scan of the chest, abdomen and pelvis is performed without Oral Contrast and with IV Contrast, pat ient injected with 100 ml mL of Isovue 300. FINDINGS: LUNGS: The lungs are grossly clear, there is no concerning parenchymal mass or nodule identified. Min imal dependent atelectatic changes. There is no pleural effusion or pneumothorax seen. The tracheob ronchial tree is patent. MEDIASTINUM: There are no greater than 1 cm hilar or mediastinal lymph nodes. There are coronary calc ifications present. No pericardial effusion is seen. AORTA: There is atheromatous change, infrarenal abdominal aorta measures 3.3 cm. OTHER: Left inguinal hernia contains fat. LIVER/GB: Patient is post cholecystectomy. Liver shows no laceration. Subcentimeter focus of low-atte nuation within the left lobe on axial image 40 likely represents a cyst.. PANCREAS: No significant abnormality is seen. SPLEEN: No significant abnormality is seen. ADRENALS: No significant abnormality is seen. KIDNEYS: Circumaortic left renal vein noted incidentally, there is cortical cyst in the upper pole th e right kidney and lower pole measuring approximately 4 cm at 3.8 cm respectively. REPRODUCTIVE ORGANS: No gross abnormality seen. BOWEL: No significant abnormality is seen. FREE AIR: No Free Air visible. ASCITES: None seen. RETROPERITONEAL ADENOPATHY: No retroperitoneal adenopathy is seen. LYMPH NODES: No greater than 1 cm abdominal or pelvic lymph nodes are appreciated. URINARY BLADDER: No significant abnormality is seen. PELVIC ADENOPATHY: None visualized. OSSEOUS STRUCTURES: No significant abnormality is seen. IMPRESSION: No acute osseous fracture, abnormal fluid collection, or evidence of solid organ injury i n the thorax, abdomen, or pelvis.
== END 2020-07-25 15:24 | disposition home or self-care (01) ==
LOC: EC 12:41
DX: S00.211A Abrasion of right eyelid and periocular area, initial encounter (principal); M25.561 Pain in right knee; R10.9 Unspecified abdominal pain; R07.89 Other chest pain; F17.200 Nicotine dependence, unspecified, uncomplicated; Z88.5 Allergy status to narcotic agent; I48.91 Unspecified atrial fibrillation; E11.9 Type 2 diabetes mellitus without complications; E78.5 Hyperlipidemia, unspecified; I10 Essential (primary) hypertension; Z79.899 Other long term (current) drug therapy; Z79.84 Long term (current) use of oral hypoglycemic drugs; Z79.01 Long term (current) use of anticoagulants; W10.9XXA Fall (on) (from) unspecified stairs and steps, initial encounter; Y93.01 Activity, walking, marching and hiking; Y92.89 Other specified places as the place of occurrence of the external cause
CPT/HCPCS: 36415; 80053; 85025; 85610; 85730; 72125; 70450; 71260; 74177; 99284; Q9967

== ENCOUNTER 2020-08-06 19:24 | Inpatient (IN) | payer MEDICARE ==
[2020-08-06] MEDS ORDERED: ACETAMINOPHEN TAB 500 MG TAB PO STA (19:56)
--- NOTE | 2020-08-06 20:37 | ED ---
General Adult HPI - General Chief complaint: Chest Pain Stated complaint: Chills,Chest pain,nausea Time Seen by Provider: 08/06/20 19:41 Source: patient Mode of arrival: ambulatory Limitations: no limitations - History of Present Illness Initial comments: 69-year-old male presents to emergency department this evening with complaints of diffuse chest discomfort, shortness of breath, and cough, onset yesterday. Reports chills 2 days. Patient states he had a fall approximately a week and half ago resulting in right rib injuries and bruising of his lung. States he has been very intentional about taking deep breaths frequently in order to avoid pneumonia. He does report some mild generalized abdominal discomfort. He also reports nausea without vomiting. Denies any sick contacts. Patient denies any recent rash, abdominal pain, nausea, vomiting, diarrhea, constipation, back pain, numbness, tingling, dizziness, weakness, hematuria, dysuria, urinary urgency, urinary frequency, headache, visual changes, or any other complaints. - Related Data Home Medications Medication Instructions Recorded Confirmed Doxazosin [Cardura] 2 mg PO DAILY 04/02/16 08/06/20 Enalapril [Vasotec] 2.5 mg PO DAILY 04/02/16 08/06/20 Isosorbide Mononitrate ER [Imdur] 60 mg PO DAILY 04/02/16 08/06/20 Propafenone [Rythmol] 150 mg PO TID 04/02/16 08/06/20 Warfarin [Coumadin] 7.5 mg PO HS 04/02/16 08/06/20 atenoloL [Atenolol] 25 mg PO DAILY 04/02/16 08/06/20 Omeprazole Magnesium [PriLOSEC OTC] 20 mg PO DAILY 07/06/17 08/06/20 Glimepiride [Amaryl] 4 mg PO DAILY 04/17/19 08/06/20 Multivitamins, Thera [Multivitamin 1 tab PO DAILY 04/17/19 08/06/20 (formulary)] traMADol HCL [Ultram] 50 mg PO Q8H PRN 04/17/19 08/06/20 Atorvastatin [Lipitor] 40 mg PO DAILY 09/06/19 08/06/20 metFORMIN HCL 1,000 mg PO BID 09/06/19 08/06/20 rOPINIRole HCL [Requip] 2 mg PO HS 09/06/19 08/06/20 Ergocalciferol [Vitamin D2] 50,000 unit PO Q7D 07/25/20 08/06/20 Furosemide [Lasix] 20 mg PO DAILY 07/25/20 08/06/20 Pioglitazone [Actos] 30 mg PO DAILY 07/25/20 08/06/20 Allergies Allergy/AdvReac Type Severity Reaction Status Date / Time hydromorphone HCl AdvReac Hallucinati Verified 08/06/20 21:51 [From Dilaudid] ons Review of Systems ROS Statement: Those systems with pertinent positive or pertinent negative responses have been documented in the HPI. ROS Other: All systems not noted in ROS Statement are negative. Past Medical History Past Medical History: Atrial Fibrillation, CVA/TIA, Diabetes Mellitus, Hyperlipidemia, Hypertension Additional Past Medical History / Comment(s): NIDDM, kidney stones History of Any Multi-Drug Resistant Organisms: None Reported Past Surgical History: No Surgical Hx Reported Additional Past Surgical History / Comment(s): 2008 normal heart cath, EGD/colonoscopy, R lower eyelid sx, R cataract removal, R foot bunionectomy. Past Anesthesia/Blood Transfusion Reactions: No Reported Reaction Past Psychological History: No Psychological Hx Reported Smoking Status: Current every day smoker Past Alcohol Use History: None Reported Past Drug Use History: None Reported - Past Family History Mother Family Medical History: Diabetes Mellitus Additional Family Medical History / Comment(s): Mother haad heart problems. Father History Unknown: Yes Additional Family Medical History / Comment(s): Pt does not know his father's health hx. General Exam Limitations: no limitations (Well-developed, well-nourished male in no acute distress. Initial temperature 102.5F, pulse 94, respirations 18, blood pressure 166/91, pulse ox 96% on room air.) General appearance: alert, in no apparent distress, other (Patient was bundled in his winter coat and wearing longjohns complaining of being miserably cold.) Respiratory exam: Present: normal lung sounds bilaterally, chest wall tenderness (Right lateral rib pain upon palpation; no contusion, deformity, or subcutaneous emphysema), other (Complaints of right-sided chest pain with inspiration). Absent: respiratory distress, wheezes, rales, rhonchi, stridor Cardiovascular Exam: Present: regular rate, normal rhythm, normal heart sounds. Absent: systolic murmur, diastolic murmur, rubs, gallop, clicks GI/Abdominal exam: Present: soft, normal bowel sounds. Absent: distended, tenderness, guarding, rebound, rigid Neurological exam: Present: alert, oriented X3, CN II-XII intact Psychiatric exam: Present: normal affect, normal mood Skin exam: Present: warm, dry, intact, normal color Course Vital Signs 08/06/20 08/06/20 08/06/20 19:29 21:35 22:44 Temperature 102.5 F H Pulse Rate 94 89 Respiratory 18 16 18 Rate Blood Pressure 166/91 154/81 O2 Sat by Pulse 96 98 Oximetry 08/06/20 23:13 Temperature 98.5 F Pulse Rate 81 Respiratory 16 Rate Blood Pressure 106/58 O2 Sat by Pulse 96 Oximetry EKG Findings - EKG Comments: EKG Findings:: EKG obtained at 1999 shows normal sinus rhythm with a left anterior fascicular block. Ventricular rate is 87, OK interval 168, QRS duration 116, QT 350, QTC 421. No evidence of ST elevation or depression Medical Decision Making - Medical Decision Making 69-year-old male patient presents to the emergency department today for evaluation of diffuse chest pain, cough, and fever. Physical examination did reveal right sided rib tenderness and abdominal tenderness. Patient did report nausea no vomiting. No diarrhea. Labs were reviewed and did show a normal whi te blood cell count but with elevated neutrophils at 8.1. INR is 2.3, he does take Coumadin. Glucose 159, lactic acid 2.5, bilirubin 3.0, AST is 2077, a LT 1666, alk phos 162. Lipase elevated at 2525. Urinalysis shows no evidence for infection. Troponin is negative. EKG is unremarkable. Ultrasound was obtained and showed no evidence for dilated ducts or focal liver defect. Gallbladder is surgically absent. Given abnormal labs CT abdomen and pelvis with contrast, this is pending. I did discuss findings and results with the patient. He'll be admitted to the hospital for further evaluation and monitoring. We will consult GI. - Lab Data Result diagrams: 08/06/20 19:56 08/06/20 21:53 Lab Results 08/06/20 08/06/20 08/06/20 Range/Units 19:56 19:56 19:56 WBC 8.8 (3.8-10.6) k/uL RBC 4.80 (4.30-5.90) m/uL Hgb 15.3 (13.0-17.5) gm/dL Hct 46.0 (39.0-53.0) % MCV 95.7 (80.0-100.0) fL MCH 31.9 (25.0-35.0) pg MCHC 33.3 (31.0-37.0) g/dL RDW 13.4 (11.5-15.5) % Plt Count 170 (150-450) k/uL MPV 8.3 Neutrophils % 93 % Lymphocytes % 3 % Monocytes % 3 % Eosinophils % 1 % Basophils % 0 % Neutrophils # 8.1 H (1.3-7.7) k/uL Lymphocytes # 0.3 L (1.0-4.8) k/uL Monocytes # 0.3 (0-1.0) k/uL Eosinophils # 0.1 (0-0.7) k/uL Basophils # 0.0 (0-0.2) k/uL PT 22.7 H (9.0-12.0) sec INR 2.3 H (<1.2) APTT 23.0 (22.0-30.0) sec Sodium (137-145) mmol/L Potassium (3.5-5.1) mmol/L Chloride (98-107) mmol/L Carbon Dioxide (22-30) mmol/L Anion Gap mmol/L BUN (9-20) mg/dL Creatinine (0.66-1.25) mg/dL Est GFR (CKD-EPI)AfAm (>60 ml/min/1.73 sqM) Est GFR (CKD-EPI)NonAf (>60 ml/min/1.73 sqM) Glucose (74-99) mg/dL Plasma Lactic Acid Jose R (0.7-2.0) mmol/L Calcium (8.4-10.2) mg/dL Total Bilirubin (0.2-1.3) mg/dL AST (17-59) U/L ALT (4-49) U/L Alkaline Phosphatase (38-126) U/L Troponin I (0.000-0.034) ng/mL Total Protein (6.3-8.2) g/dL Albumin (3.5-5.0) g/dL Lipase (23-300) U/L Urine Color Yellow Urine Appearance Clear (Clear) Urine pH 5.0 (5.0-8.0) Ur Specific [place] 1.016 (1.001-1.035) Urine Protein Negative (Negative) Urine Glucose (UA) Negative (Negative) Urine Ketones Negative (Negative) Urine Blood Negative (Negative) Urine Nitrite Negative (Negative) Urine Bilirubin Negative (Negative) Urine Urobilinogen 2.0 (<2.0) mg/dL Ur Leukocyte Esterase Negative (Negative) Coronavirus (PCR) (Not Detectd) Influenza Type A RNA (Not Detectd) Influenza Type B (PCR) (Not Detectd) 08/06/20 08/06/20 08/06/20 Range/Units 19:57 20:01 20:02 WBC (3.8-10.6) k/uL RBC (4.30-5.90) m/uL Hgb (13.0-17.5) gm/dL Hct (39.0-53.0) % MCV (80.0-100.0) fL MCH (25.0-35.0) pg MCHC (31.0-37.0) g/dL RDW (11.5-15.5) % Plt Count (150-450) k/uL MPV Neutrophils % % Lymphocytes % % Monocytes % % Eosinophils % % Basophils % % Neutrophils # (1.3-7.7) k/uL Lymphocytes # (1.0-4.8) k/uL Monocytes # (0-1.0) k/uL Eosinophils # (0-0.7) k/uL Basophils # (0-0.2) k/uL PT (9.0-12.0) sec INR (<1.2) APTT (22.0-30.0) sec Sodium (137-145) mmol/L Potassium (3.5-5.1) mmol/L Chloride (98-107) mmol/L Carbon Dioxide (22-30) mmol/L Anion Gap mmol/L BUN (9-20) mg/dL Creatinine (0.66-1.25) mg/dL Est GFR (CKD-EPI)AfAm (>60 ml/min/1.73 sqM) Est GFR (CKD-EPI)NonAf (>60 ml/min/1.73 sqM) Glucose (74-99) mg/dL Plasma Lactic Acid Jose R (0.7-2.0) mmol/L Calcium (8.4-10.2) mg/dL Total Bilirubin (0.2-1.3) mg/dL AST (17-59) U/L ALT (4-49) U/L Alkaline Phosphatase (38-126) U/L Troponin I <0.012 (0.000-0.034) ng/mL Total Protein (6.3-8.2) g/dL Albumin (3.5-5.0) g/dL Lipase (23-300) U/L Urine Color Urine Appearance (Clear) Urine pH (5.0-8.0) Ur Specific [place] (1.001-1.035) Urine Protein (Negative) Urine Glucose (UA) (Negative) Urine Ketones (Negative) Urine Blood (Negative) Urine Nitrite (Negative) Urine Bilirubin (Negative) Urine Urobilinogen (<2.0) mg/dL Ur Leukocyte Esterase (Negative) Coronavirus (PCR) Not Detected (Not Detectd) Influenza Type A RNA Not Detected (Not Detectd) Influenza Type B (PCR) Not Detected (Not Detectd) 08/06/20 08/06/20 08/06/20 Range/Units 21:53 21:53 21:53 WBC (3.8-10.6) k/uL RBC (4.30-5.90) m/uL Hgb (13.0-17.5) gm/dL Hct (39.0-53.0) % MCV (80.0-100.0) fL MCH (25.0-35.0) pg MCHC (31.0-37.0) g/dL RDW (11.5-15.5) % Plt Count (150-450) k/uL MPV Neutrophils % % Lymphocytes % % Monocytes % % Eosinophils % % Basophils % % Neutrophils # (1.3-7.7) k/uL Lymphocytes # (1.0-4.8) k/uL Monocytes # (0-1.0) k/uL Eosinophils # (0-0.7) k/uL Basophils # (0-0.2) k/uL PT (9.0-12.0) sec INR (<1.2) APTT (22.0-30.0) sec Sodium 137 (137-145) mmol/L Potassium 3.8 (3.5-5.1) mmol/L Chloride 106 (98-107) mmol/L Carbon Dioxide 24 (22-30) mmol/L Anion Gap 7 mmol/L BUN 15 (9-20) mg/dL Creatinine 0.81 (0.66-1.25) mg/dL Est GFR (CKD-EPI)AfAm >90 (>60 ml/min/1.73 sqM) Est GFR (CKD-EPI)NonAf >90 (>60 ml/min/1.73 sqM) Glucose 159 H (74-99) mg/dL Plasma Lactic Acid Jose R 2.5 H* (0.7-2.0) mmol/L Calcium 10.2 (8.4-10.2) mg/dL Total Bilirubin 3.0 H (0.2-1.3) mg/dL AST 2077 H (17-59) U/L ALT 1666 H (4-49) U/L Alkaline Phosphatase 162 H (38-126) U/L Troponin I (0.000-0.034) ng/mL Total Protein 6.6 (6.3-8.2) g/dL Albumin 3.9 (3.5-5.0) g/dL Lipase 2525 H (23-300) U/L Urine Color Urine Appearance (Clear) Urine pH (5.0-8.0) Ur Specific [place] (1.001-1.035) Urine Protein (Negative) Urine Glucose (UA) (Negative) Urine Ketones (Negative) Urine Blood (Negative) Urine Nitrite (Negative) Urine Bilirubin (Negative) Urine Urobilinogen (<2.0) mg/dL Ur Leukocyte Esterase (Negative) Coronavirus (PCR) (Not Detectd) Influenza Type A RNA (Not Detectd) Influenza Type B (PCR) (Not Detectd) - EKG Data EKG shows normal: sinus rhythm Rate: normal EKG Comments: EKG was obtained at 1999 showed normal sinus rhythm with a ventricular rate 87, OK interval 168, QRS duration 116, QT/QTc 350/121. Interpreted as abnormal ECG, left anterior fascicular block, septal infarct - Radiology Data Radiology results: report reviewed Two-view chest x-ray was obtained. Impression per Dr. Faustin is slight coarsening of the lung markings that is slightly more than last exam and could relate to mild fibrosis. Normal heart. Disposition Clinical Impression: Liver failure, Pancreatitis, Lactic acidosis Disposition: ADMITTED IP TO THIS HOSP Condition: Serious Referrals: Andrew Walker MD [Primary Care Provider] - 1-2 days Decision to Admit Reason: Admit from EC Decision Date: 08/07/20 Decision Time: 00:03
--- NOTE | 2020-08-06 21:30 | XR ---
EXAMINATION TYPE: XR chest 2V DATE OF EXAM: 08/06/2020 COMPARISON: 07/06/2017 HISTORY: Fever TECHNIQUE: 2 views FINDINGS: I see no heart failure nor confluent pneumonic infiltrate. There is slight coarsening of in terstitial markings. Costophrenic angles are clear. Bony thorax is intact. IMPRESSION: Slight coarsening of the lung markings that is slightly more than last exam and could rel ate to mild fibrosis. Normal heart.
[2020-08-06 21:44] LABS: Appearance,Urine Clear (Clear); Bilirubin,Urine Negative (Negative); Blood,Urine Negative (Negative); Color,Urine Yellow; Glucose,Urine (UA) Negative (Negative); Ketones,Urine Negative (Negative); Leukocyte Esterase,Urine Negative (Negative); Nitrite,Urine Negative (Negative); Protein,Urine Negative (Negative); Specific Gravity,Urine 1.016 (1.001-1.035)
[2020-08-06 21:45] LABS: Basophils % (A) 0 %; Eosinophils # (A) 0.1 k/uL (0-0.7); Eosinophils % (A) 1 %; HGB 15.3 gm/dL (13.0-17.5); Lymphocytes # (A) 0.3 k/uL (1.0-4.8); Lymphocytes % (A) 3 %; MCH 31.9 pg (25.0-35.0); MCHC 33.3 g/dL (31.0-37.0); MCV 95.7 fL (80.0-100.0); Mean Platelet Volume 8.3; Monocytes # (A) 0.3 k/uL (0-1.0); Monocytes % (A) 3 %; Neutrophils # (A) 8.1 k/uL (1.3-7.7); Neutrophils % (A) 93 %; Platelet Count 170 k/uL (150-450); RDW 13.4 % (11.5-15.5); WBC 8.8 k/uL (3.8-10.6)
[2020-08-06] MEDS: SODIUM CHLORIDE 0.9% 500 ML 500 ML IV SCH ×2 (21:51→23:12)
[2020-08-06] MEDS: SODIUM CHLORIDE 0.9% 1,000 ML IV SCH (21:51)
[2020-08-06 22:11] LABS: African American GFR (CKD) >90 (>60 ml/min/1.73 sqM); Albumin 3.9 g/dL (3.5-5.0); Alkaline Phosphatase 162 U/L (38-126); Anion Gap 7 mmol/L; Blood Urea Nitrogen 15 mg/dL (9-20); Calcium 10.2 mg/dL (8.4-10.2); Carbon Dioxide 24 mmol/L (22-30); Chloride 106 mmol/L (98-107); Glucose 159 mg/dL (74-99); Non-African American GFR(CKD) >90 (>60 ml/min/1.73 sqM); Potassium 3.8 mmol/L (3.5-5.1); Sodium 137 mmol/L (137-145); Total Protein 6.6 g/dL (6.3-8.2)
[2020-08-06 22:14] LABS: INR 2.3 (<1.2); Prothrombin Time 22.7 sec (9.0-12.0)
[2020-08-06 22:42] LABS: ALT 1666 U/L (4-49)
[2020-08-06 22:45] LABS: AST 2077 U/L (17-59)
[2020-08-06] MEDS ORDERED: SODIUM CHLORIDE 0.9% 1,000 ML IV ONE (23:19)
--- NOTE | 2020-08-06 23:33 | US ---
EXAMINATION TYPE: US abdomen limited DATE OF EXAM: 08/06/2020 COMPARISON: CT 2019, US 2016 CLINICAL HISTORY: Elevated liver enzymes; Abd pain. Abdomen pain, history of cholecystectomy EXAM MEASUREMENTS: Liver Length: 17.5 cm CBD: 0.4 cm Right Kidney: 11.4 x 5.4 x 5.3 cm Pancreas: obscured by overlying midline bowel gas Liver: measures in upper limits of normal, scanned intercostally, limited visualization, left lobe o bscured by overlying midline bowel gas, right lobe appears mildly heterogeneous Gallbladder: surgically absent Evidence for sonographic Easley's sign: no CBD: visualized portions wnl, limited by overlying bowel gas Right Kidney: 2.9cm cyst inferior pole, 4.1cm cyst superior pole IMPRESSION: No focal liver defect. No dilated ducts. Simple right renal cortical cyst.
[2020-08-07] MEDS ORDERED: AMPICILLIN-SULBACTAM 3 GM in SODIUM CHLORIDE 0.9% 100 ML IVPB STA (00:03)
[2020-08-07] MEDS ORDERED: HYDROmorphone 0.5 MG/0.5 ML SYRINGE IVP PRN (00:04)
[2020-08-07] MEDS ORDERED: ONDANSETRON 4 MG/2 ML VIAL IVP PRN (00:04)
[2020-08-07] MEDS ORDERED: NALOXONE 0.4 MG/ML 1 ML VIAL IV PRN (00:04)
--- NOTE | 2020-08-07 00:20 | CT ---
EXAMINATION TYPE: CT abdomen pelvis w con DATE OF EXAM: 08/07/2020 COMPARISON: 07/25/2020 HISTORY: pain CT DLP: 1242.1 mGycm Automated exposure control for dose reduction was used. CONTRAST: Performed with IV Contrast, patient injected with 100 mL of Isovue 300. Images were obtained from the diaphragm to the floor the pelvis with IV contrast. There is some mild atelectasis at the posterior lung bases. There is very small pericardial effusion. There is no pleural effusion. Liver spleen stomach appear normal. Bile ducts are not dilated. There are clips from cholecystectomy. There is no evidence of pancreatic mass. There is mild pancreatic atrophy. There is no adrenal mass. There are right-sided renal cortical cysts that measure up to 4.2 cm. There is no hydronephrosis. There is no evidence of solid renal mass. Delayed images show normal renal exc retion. There is no retroperitoneal adenopathy. Appendix is normal. The bladder distends smoothly. There is no inguinal hernia. There is no free fluid in the pelvis. There is no mesenteric edema. There is no ascites or free air. There is no sign of a bowel obstructio n. There is mild anterior subluxation of L4 in relation L5. There is no lumbar compression fracture. The re is narrowing of L5-S1 disc space with vacuum disc. The bony pelvis is intact. There is 3 cm aneury sm of the lower abdominal aorta. There is no dissection. IMPRESSION: Mild subsegmental atelectasis at the lung bases unchanged. Small pericardial effusion unchanged. Mild abdominal aortic aneurysm unchanged. No evidence of pancreatitis. There is some pancreatic atrop hy. Unchanged.
[2020-08-07 02:39] LABS: Glucose,Whole Blood 111 mg/dL (75-99)
[2020-08-07] MEDS: SODIUM CHLORIDE 0.9% 1,000 ML IV SCH ×3 (05:07→20:05)
[2020-08-07] MEDS: AMPICILLIN-SULBACTAM 3 GM in SODIUM CHLORIDE 0.9% 100 ML IVPB SCH ×3 (08:38→23:04)
[2020-08-07] MEDS ORDERED: traMADol 50 MG TAB PO PRN (12:56)
--- NOTE | 2020-08-07 13:28 | P.HPIM ---
History of Present Illness H&P Date: 08/07/20 Luis Vázquez, is a 69-year-old male who presented to [facility] emergency room with a chief complaint of chest pain, abdominal pain and shaking chills he was evaluated in emergency room, vital examination on presentation revealed a temperature of 102.5 pulse 94 respiration 18 blood pressure 166/91 pulse ox 96% on room air EKG did not reveal any evidence of acute ischemic changes troponin level was less than 0.012, however patient had elevated AST at 2077 elevated a LT at 1666 elevated alkaline phosphatase at 162 elevated lipase at 2525 elevated total bilirubin at 3.0 and elevated plasma lactic acid at 2.5 CBC did not reveal any acute abnormality, urine analysis did not reveal any evidence of infection, influenza testing and Covid 19 testing were negative. Chest x-ray revealed slight coarsening of the lung markings otherwise no significant abnormality. Patient underwent computed tomography scan of the abdomen and pelvis with contrast that revealed small pericardial effusion unchanged from before mild abdominal aortic aneurysm and changed from before no evidence of acute pancreatitis, and no liver abnormality. There was evidence of prior cholecystectomy. Blood cultures were done and patient was admitted to medical floor for further evaluation and treatment he was started on IV antibiotic Unasyn in the emergency room. This morning blood culture were reported as positive for gram-negative bacilli. Patient stated that he had a significant fall 2 weeks ago at that time he was seen in the emergency room he had head injury and injury to the right ribs area he was evaluated in the emergency room at that time and was discharged home. His past medical history is significant for diabetes mellitus, chronic atrial fibrillation maintained on Coumadin, history of hypertension, history of benign prostatic hypertrophy, and history of hyperlipidemia Past Medical History Past Medical History: Atrial Fibrillation, CVA/TIA, Diabetes Mellitus, Hyperlipidemia, Hypertension Additional Past Medical History / Comment(s): NIDDM, kidney stones History of Any Multi-Drug Resistant Organisms: None Reported Past Surgical History: No Surgical Hx Reported Additional Past Surgical History / Comment(s): 2008 normal heart cath, EGD/co lonoscopy, R lower eyelid sx, R cataract removal, R foot bunionectomy. Past Anesthesia/Blood Transfusion Reactions: No Reported Reaction Past Psychological History: No Psychological Hx Reported Additional Psychological History / Comment(s): Pt resides with his spouse. He is independent. He drives. 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 He started smoking at age 13 yrs. He is a 0.5 ppd smoker. He used to chew tobacco but hasn't for yrs. Past Drug Use History: None Reported - Past Family History Mother Family Medical History: Diabetes Mellitus Additional Family Medical History / Comment(s): Mother haad heart problems. Father History Unknown: Yes Additional Family Medical History / Comment(s): Pt does not know his father's health hx. Medications and Allergies Home Medications Medication Instructions Recorded Confirmed Type Doxazosin [Cardura] 2 mg PO DAILY 04/02/16 08/06/20 History Enalapril [Vasotec] 2.5 mg PO DAILY 04/02/16 08/06/20 History Isosorbide Mononitrate ER [Imdur] 60 mg PO DAILY 04/02/16 08/06/20 History Propafenone [Rythmol] 150 mg PO TID 04/02/16 08/06/20 History Warfarin [Coumadin] 7.5 mg PO HS 04/02/16 08/06/20 History atenoloL [Atenolol] 25 mg PO DAILY 04/02/16 08/06/20 History Omeprazole Magnesium [PriLOSEC OTC] 20 mg PO DAILY 07/06/17 08/06/20 History Glimepiride [Amaryl] 4 mg PO DAILY 04/17/19 08/06/20 History Multivitamins, Thera [Multivitamin 1 tab PO DAILY 04/17/19 08/06/20 History (formulary)] traMADol HCL [Ultram] 50 mg PO Q8H PRN 04/17/19 08/06/20 History Atorvastatin [Lipitor] 40 mg PO DAILY 09/06/19 08/06/20 History metFORMIN HCL 1,000 mg PO BID 09/06/19 08/06/20 History rOPINIRole HCL [Requip] 2 mg PO HS 09/06/19 08/06/20 History Ergocalciferol [Vitamin D2] 50,000 unit PO Q7D 07/25/20 08/06/20 History Furosemide [Lasix] 20 mg PO DAILY 11/13/20 11/25/20 History Pioglitazone [Actos] 30 mg PO DAILY 07/25/20 08/06/20 History Allergies Allergy/AdvReac Type Severity Reaction Status Date / Time hydromorphone HCl AdvReac Hallucinati Verified 08/06/20 21:51 [From Dilaudid] ons Physical Exam Vitals: Vital Signs Temp Pulse Pulse Pulse Resp BP BP 08/07/20 09:00 08/07/20 05:00 100.0 F H 85 16 107/58 08/07/20 02:00 98.2 F 81 16 125/69 08/07/20 01:16 98.2 F 81 16 125/69 08/06/20 23:13 98.5 F 81 16 106/58 08/06/20 22:44 18 08/06/20 21:35 89 16 154/81 08/06/20 19:29 102.5 F H 94 18 166/91 Pulse Ox 08/07/20 09:00 98 08/07/20 05:00 96 08/07/20 02:00 94 L 08/07/20 01:16 96 08/06/20 23:13 96 08/06/20 22:44 08/06/20 21:35 98 08/06/20 19:29 96 Intake and Output 08/06/20 08/07/20 08/07/20 22:59 06:59 14:59 Other: # Voids 2 Weight 97.522 kg 97.522 kg In general patient is alert and oriented 3 in no apparent distress he is sitting up on the side of the bed answering questions appropriately HEENT head normocephalic and atraumatic Neck is supple no JVD no goiter no lymphadenopathy Chest exam reveals a clear respiratory sounds no crackles no wheezing Cardiac exam reveals regular heart sounds S1 and S2 no gallops no murmurs Abdomen is soft, with tenderness in the epigastric area no organomegaly with normal bowel sounds Extremity exam reveals no edema no cyanosis or clubbing Neurological examination reveals no gross focal deficit Results CBC & Chem 7: 08/06/20 19:56 08/06/20 21:53 Labs: Abnormal Lab Results - Last 24 Hours (Table) 08/06/20 08/06/20 08/06/20 Range/Units 19:56 19:56 21:53 Neutrophils # 8.1 H (1.3-7.7) k/uL Lymphocytes # 0.3 L (1.0-4.8) k/uL PT 22.7 H (9.0-12.0) sec INR 2.3 H (<1.2) Glucose 159 H (74-99) mg/dL POC Glucose (mg/dL) (75-99) mg/dL Plasma Lactic Acid Jose R (0.7-2.0) mmol/L Total Bilirubin 3.0 H (0.2-1.3) mg/dL AST 2077 H (17-59) U/L ALT 1666 H (4-49) U/L Alkaline Phosphatase 162 H (38-126) U/L Lipase (23-300) U/L 08/06/20 08/06/20 08/07/20 Range/Units 21:53 21:53 00:57 Neutrophils # (1.3-7.7) k/uL Lymphocytes # (1.0-4.8) k/uL PT (9.0-12.0) sec INR (<1.2) Glucose (74-99) mg/dL POC Glucose (mg/dL) (75-99) mg/dL Plasma Lactic Acid Jose R 2.5 H* 2.1 H* (0.7-2.0) mmol/L Total Bilirubin (0.2-1.3) mg/dL AST (17-59) U/L ALT (4-49) U/L Alkaline Phosphatase (38-126) U/L Lipase 2525 H (23-300) U/L 08/07/20 Range/Units 02:37 Neutrophils # (1.3-7.7) k/uL Lymphocytes # (1.0-4.8) k/uL PT (9.0-12.0) sec INR (<1.2) Glucose (74-99) mg/dL POC Glucose (mg/dL) 111 H (75-99) mg/dL Plasma Lactic Acid Jose R (0.7-2.0) mmol/L Total Bilirubin (0.2-1.3) mg/dL AST (17-59) U/L ALT (4-49) U/L Alkaline Phosphatase (38-126) U/L Lipase (23-300) U/L Microbiology - Last 24 Hours (Table) 08/06/20 19:56 Blood Culture Gram Stain - Preliminary Blood 08/06/20 21:53 Blood Culture - Final Blood Thrombosis Risk Factor Assmnt - Choose All That Apply Any of the Below Risk Factors Present?: No Each Risk Factor Represents 2 Points: Age 61-74 years Other congenital or acquired thrombophilia - If yes, enter type in comment: No Thrombosis Risk Factor Assessment Total Risk Factor Score: 2 Thrombosis Risk Factor Assessment Level: Low Risk Assessment and Plan Plan: 1. Acute pancreatitis 2. Acute hepatitis 3. Sepsis with positive blood cultute 4. Lactic acidosis, likely related to sepsis 5. Underlying history of diabetes mellitus 6. Underlying history of atrial fibrillation maintained on Coumadin 7. Underlying history of hypertension 8. Underlying history of hyperlipidemia At this time will continue with IV fluid patient was kept nothing by mouth, he was started on clear liquid diet by gastroenterology today Will repeat labs in a.m. Continue with IV Unasyn at this time consultation for infectious disease was initiated Will follow closely
[2020-08-07] MEDS: MULTIVITAMINS, THERA 1 EACH TAB PO SCH (15:21)
[2020-08-07] MEDS: atenoloL 25 MG TAB PO SCH (15:21)
[2020-08-07] MEDS: lisinopriL 5 MG TAB PO SCH (15:21)
[2020-08-07] MEDS: DOXAZOSIN 2 MG TAB PO SCH (15:22)
[2020-08-07] MEDS: PROPAFENONE 150 MG TAB PO SCH ×2 (15:22→21:28)
[2020-08-07] MEDS: ISOSORBIDE MONONITRATE ER 60 MG TAB.ER.24H PO SCH (15:22)
[2020-08-07] MEDS: PANTOPRAZOLE 40 MG TABLET PO SCH (15:27)
--- NOTE | 2020-08-07 15:51 | P.CONS ---
History of Present Illness - Reason for Consult Consult date: 08/07/20 Elevated liver enzymes Requesting physician: Andrew Walker - Chief Complaint Abdominal pain and fevers - History of Present Illness 69-year-old male with a medical history significant for hypertension, hyperlipidemia and atrial fibrillation who presented to the hospital for a constellation of symptoms including abdominal pain, chest pain, fevers and chills. The patient reports developing sharp severe pain over his whole abdomen with associated pain in his chest, shortness of breath and chills. He presented to the hospital for further evaluation. He was found to have markedly elevated lipase on presentation at 2525 as well as elevated liver enzymes with total bili vargas 3.0, alkaline phosphatase 162, AST 2077 and ALT 1666 with WBC 8.8, hemoglobin 15.3 into the counter 170,000. INR was elevated at 2.3 but the patient is on Coumadin therapy. He had imaging with ultrasound which was negative for any acute findings in the liver with no ductal dilation noted and she is status post cholecystectomy. Computed tomography scan also showed absence of any CBD dilation and evidence of prior cholecystectomy. On questioning the patient denies any alcohol use as he is not drained over the past 40 years. Prior to this he had a short history of heavy alcohol use as a teenager. He denies any history of liver disease, prior elevation in liver enzymes, viral hepatitis. The patient is unsure of family history as he was adopted. He denies any sick contacts. Currently he is admitted and being treated for pancreatitis and possible sepsis. Review of Systems REVIEW OF SYSTEMS: CONSTITUTIONAL: Denies any weight change or fatigue but did have fevers and chills prior to presentation.. CARDIOVASCULAR: Denies any chest pain presently but did have some prior to presentation, palpitations high or low blood pressures, known history of atrial fibrillation on Coumadin therapy RESPIRATORY: Denies any shortness of breath, hemoptysis or cough. GENITOURINARY: No dysuria or hematuria. MUSCULOSKELETAL: No weakness reported. SKIN: Denies any new rashes or lesions, jaundice or pallor. PSYCHIATRIC: Denies any depression or anxiety. NEUROLOGY: Denies headache, denies any new focal deficits. EARS/NOSE/THROAT: No recent hearing change, congestion, nasal discharge or sore throat. EYES: No pain in eyes, discharge or change in vision. GASTROINTESTINAL: As per HPI. Past Medical History Past Medical History: Atrial Fibrillation, CVA/TIA, Diabetes Mellitus, Hyperli pidemia, Hypertension Additional Past Medical History / Comment(s): NIDDM, kidney stones History of Any Multi-Drug Resistant Organisms: None Reported Past Surgical History: No Surgical Hx Reported Additional Past Surgical History / Comment(s): 2008 normal heart cath, EGD/colonoscopy, R lower eyelid sx, R cataract removal, R foot bunionectomy. Past Anesthesia/Blood Transfusion Reactions: No Reported Reaction Past Psychological History: No Psychological Hx Reported Additional Psychological History / Comment(s): Pt resides with his spouse. He is independent. He drives. 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 He started smoking at age 13 yrs. He is a 0.5 ppd smoker. He used to chew tobacco but hasn't for yrs. Past Drug Use History: None Reported - Past Family History Mother Family Medical History: Diabetes Mellitus Additional Family Medical History / Comment(s): Mother haad heart problems. Father History Unknown: Yes Additional Family Medical History / Comment(s): Pt does not know his father's health hx. Medications and Allergies Home Medications Medication Instructions Recorded Confirmed Type Doxazosin [Cardura] 2 mg PO DAILY 04/02/16 08/06/20 History Enalapril [Vasotec] 2.5 mg PO DAILY 04/02/16 08/06/20 History Isosorbide Mononitrate ER [Imdur] 60 mg PO DAILY 04/02/16 08/06/20 History Propafenone [Rythmol] 150 mg PO TID 04/02/16 08/06/20 History Warfarin [Coumadin] 7.5 mg PO HS 04/02/16 08/06/20 History atenoloL [Atenolol] 25 mg PO DAILY 04/02/16 08/06/20 History Omeprazole Magnesium [PriLOSEC OTC] 20 mg PO DAILY 07/06/17 08/06/20 History Glimepiride [Amaryl] 4 mg PO DAILY 04/17/19 08/06/20 History Multivitamins, Thera [Multivitamin 1 tab PO DAILY 04/17/19 08/06/20 History (formulary)] traMADol HCL [Ultram] 50 mg PO Q8H PRN 04/17/19 08/06/20 History Atorvastatin [Lipitor] 40 mg PO DAILY 09/06/19 08/06/20 History metFORMIN HCL 1,000 mg PO BID 09/06/19 08/06/20 History rOPINIRole HCL [Requip] 2 mg PO HS 09/06/19 08/06/20 History Ergocalciferol [Vitamin D2] 50,000 unit PO Q7D 07/25/20 08/06/20 History Furosemide [Lasix] 20 mg PO DAILY 07/25/20 08/06/20 History Pioglitazone [Actos] 30 mg PO DAILY 07/25/20 08/06/20 History Allergies Allergy/AdvReac Type Severity Reaction Status Date / Time hydromorphone HCl AdvReac Hallucinati Verified 08/06/20 21:51 [From Dilaudid] ons Physical Exam Vitals: Vital Signs Temp Pulse Pulse Pulse Resp BP BP 08/07/20 05:00 100.0 F H 85 16 107/58 08/07/20 02:00 98.2 F 81 16 125/69 08/07/20 01:16 98.2 F 81 16 125/69 08/06/20 23:13 98.5 F 81 16 106/58 08/06/20 22:44 18 08/06/20 21:35 89 16 154/81 08/06/20 19:29 102.5 F H 94 18 166/91 Pulse Ox 08/07/20 05:00 96 08/07/20 02:00 94 L 08/07/20 01:16 96 08/06/20 23:13 96 08/06/20 22:44 08/06/20 21:35 98 08/06/20 19:29 96 Intake and Output 08/06/20 08/07/20 08/07/20 22:59 06:59 14:59 Other: # Voids 2 Weight 97.522 kg 97.522 kg On physical examination, patient appears comfortable in no apparent distress. HEAD: Normocephalic, atraumatic. EYES: No scleral icterus. No conjunctival injection. MOUTH: No lesions, tongue midline. NECK: Trachea midline, no gross abnormalities. CHEST: Clear to auscultation with no wheezing or rhonchi appreciated. HEART: S1-S2 appreciated. ABDOMEN: Soft, obese and mildly tender to palpation. Bowel sounds are positive. No organomegaly. No guarding or rigidity. EXTREMITIES: No pedal edema. SKIN: No rashes, no jaundice. NEUROLOGIC: Alert and oriented x3. No focal deficits. Results CBC & Chem 7: 08/06/20 19:56 08/06/20 21:53 Labs: Abnormal Lab Results - Last 24 Hours (Table) 08/06/20 08/06/20 08/06/20 Range/Units 19:56 19:56 21:53 Neutrophils # 8.1 H (1.3-7.7) k/uL Lymphocytes # 0.3 L (1.0-4.8) k/uL PT 22.7 H (9.0-12.0) sec INR 2.3 H (<1.2) Glucose 159 H (74-99) mg/dL POC Glucose (mg/dL) (75-99) mg/dL Plasma Lactic Acid Jose R (0.7-2.0) mmol/L Total Bilirubin 3.0 H (0.2-1.3) mg/dL AST 2077 H (17-59) U/L ALT 1666 H (4-49) U/L Alkaline Phosphatase 162 H (38-126) U/L Lipase (23-300) U/L 08/06/20 08/06/20 08/07/20 Range/Units 21:53 21:53 00:57 Neutrophils # (1.3-7.7) k/uL Lymphocytes # (1.0-4.8) k/uL PT (9.0-12.0) sec INR (<1.2) Glucose (74-99) mg/dL POC Glucose (mg/dL) (75-99) mg/dL Plasma Lactic Acid Jose R 2.5 H* 2.1 H* (0.7-2.0) mmol/L Total Bilirubin (0.2-1.3) mg/dL AST (17-59) U/L ALT (4-49) U/L Alkaline Phosphatase (38-126) U/L Lipase 2525 H (23-300) U/L 08/07/20 Range/Units 02:37 Neutrophils # (1.3-7.7) k/uL Lymphocytes # (1.0-4.8) k/uL PT (9.0-12.0) sec INR (<1.2) Glucose (74-99) mg/dL POC Glucose (mg/dL) 111 H (75-99) mg/dL Plasma Lactic Acid Jose R (0.7-2.0) mmol/L Total Bilirubin (0.2-1.3) mg/dL AST (17-59) U/L ALT (4-49) U/L Alkaline Phosphatase (38-126) U/L Lipase (23-300) U/L US - abdomen: report reviewed (Ultrasound of the abdomen shows evidence of prior cholecystectomy with no acute liver pathology noted and no dilated ducts seen) Assessment and Plan (1) Elevated liver enzymes Narrative/Plan: 69-year-old male with multiple medical comorbidities presenting with a constellation of symptoms including abdominal and chest pain, fevers and chills and cough. Testing for coronavirus was negative. Patient was found to have markedly elevated lipase on presentation at 2525 and is currently being treated for acute uncomplicated pancreatitis. Computed tomography scan of the abdomen and ultrasound of the abdomen were negative for any acute liver pathology or ductal dilation to suggest choledocholithiasis. Markedly elevated liver enzymes are concerning for possible ischemic hepatitis in the setting of pancreatitis and possible sepsis or infectious hepatitis. The patient denies any prior history of liver dysfunction, he is not drinking alcohol over the past 40 years and denies any high risk behavior. Current Visit: Yes Status: Acute Code(s): R74.8 - ABNORMAL LEVELS OF OTHER SERUM ENZYMES SNOMED Code(s): 399050213 (2) Pancreatitis Current Visit: Yes Status: Acute Code(s): K85.90 - ACUTE PANCREATITIS WITHOUT NECROSIS OR INFECTION, UNSP SNOMED Code(s): 70153180 (3) Abdominal pain Current Visit: No Status: Acute Code(s): R10.9 - UNSPECIFIED ABDOMINAL PAIN SNOMED Code(s): 57973657 Plan: Supportive care Okay for liquid diet Continue IV fluid hydration Continue pain control Full liver serology ordered for further evaluation, suspicion is for possible infectious or ischemic hepatitis in the setting of pancreatitis Patient may require further imaging if liver enzymes do not improve and workup is unremarkable Thank you for allowing us to participate in the care of the patient we will continue to follow
[2020-08-07 20:31] LABS: Glucose,Whole Blood 61 mg/dL (75-99)
[2020-08-07 20:51] LABS: Glucose,Whole Blood 76 mg/dL (75-99)
[2020-08-08] MEDS: SODIUM CHLORIDE 0.9% 1,000 ML IV SCH ×2 (03:00→13:05)
[2020-08-08] MEDS: AMPICILLIN-SULBACTAM 3 GM in SODIUM CHLORIDE 0.9% 100 ML IVPB SCH ×4 (05:41→23:41)
[2020-08-08 06:15] LABS: Basophils % (A) 0 %; Eosinophils # (A) 0.1 k/uL (0-0.7); Eosinophils % (A) 1 %; HGB 13.7 gm/dL (13.0-17.5); Lymphocytes # (A) 0.3 k/uL (1.0-4.8); Lymphocytes % (A) 4 %; MCH 34.1 pg (25.0-35.0); MCHC 36.2 g/dL (31.0-37.0); MCV 94.2 fL (80.0-100.0); Mean Platelet Volume 8.1; Monocytes # (A) 0.3 k/uL (0-1.0); Monocytes % (A) 4 %; Neutrophils # (A) 6.4 k/uL (1.3-7.7); Neutrophils % (A) 91 %; Platelet Count 111 k/uL (150-450); RBC 4.03 m/uL (4.30-5.90); RDW 12.7 % (11.5-15.5); WBC 7.1 k/uL (3.8-10.6)
[2020-08-08 06:22] LABS: INR 2.7 (<1.2); Prothrombin Time 26.2 sec (9.0-12.0)
[2020-08-08] MEDS: atenoloL 25 MG TAB PO SCH (08:22)
[2020-08-08] MEDS: MULTIVITAMINS, THERA 1 EACH TAB PO SCH (08:22)
[2020-08-08] MEDS: lisinopriL 5 MG TAB PO SCH (08:22)
[2020-08-08] MEDS: PANTOPRAZOLE 40 MG TABLET PO SCH (08:22)
[2020-08-08] MEDS: PROPAFENONE 150 MG TAB PO SCH ×3 (08:23→20:11)
[2020-08-08] MEDS: ISOSORBIDE MONONITRATE ER 60 MG TAB.ER.24H PO SCH (08:23)
[2020-08-08] MEDS: DOXAZOSIN 2 MG TAB PO SCH (08:23)
[2020-08-08 09:29] LABS: % Iron Saturation 6.31 (15.00-50.00); African American GFR (CKD) 105.6 (60.0-200.0); Albumin 3.3 g/dL (3.80-4.90); Albumin/Globulin Ratio 1.94 (1.60-3.17); Anion Gap 6.7 mmol/L (4.00-12.00); BUN/Creat Ratio 18.75 Ratio (12.00-20.00); Bilirubin, Conjugated 2.7 mg/dL (0.20-0.40); Calcium 8.9 mg/dL (8.7-10.3); Carbon Dioxide 23.3 mmol/L (21.6-31.8); Ferritin 1661.7 ng/mL (22.0-322.0); Globulin 1.7 g/dL (1.6-3.3); Non-African American GFR(CKD) 91.1 (60.0-200.0); Potassium 3.4 mmol/L (3.5-5.5); Total Bilirubin 3.7 mg/dL (0.2-1.2)
--- NOTE | 2020-08-08 09:46 | CONS ---
CONSULTATION DATE OF SERVICE: 08/07/2020 REASON FOR CONSULTATION: Sepsis. HISTORY OF PRESENT ILLNESS: The patient is a 69-year-old male presenting to the ER last night for evaluation of abdominal pain. The patient's pain has been mostly in the right upper quadrant area and mainly complaining of some discomfort off and on for the last day or two, however, the patient's pain got really severe and that is why he presented to the hospital. The patient was also complaining of some chills for 2 days before presentation to the hospital. The patient has some nausea but no vomiting. Denies having any chest pain or shortness of breath or cough. No diarrhea and no urinary symptoms. The patient is currently complaining of pain mostly in the right upper quadrant area and some in the epigastric, more of a dull aching to sharp, 5-6/10 in intensity with no radiation. On arrival to the ER, the patient did have a fever of 102.5 degrees Fahrenheit. The patient did have a normal white count. Did have elevated lactic acid. Liver enzymes are elevated as well as lipase. Urine was negative. Newman PCR negative. Influenza PCR was negative. The patient did have an ultrasound of the abdomen which did shows gallbladder surgically absent, pancrease was obscured by overlying gas. Liver did not show any abnormality. CBD within normal limits. He also had a CT of abdomen and pelvis which did show some atrophy of the pancreas, but no evidence of any CBD dilatation. The patient did have blood cultures done which came back positive with Gram-negative bacilli. The patient has been treated with Unasyn 3 grams q.8 hours. Infectious Disease was consulted for further management of antibiotic therapy. REVIEW OF SYSTEMS: Positive points have been mentioned in HPI. Rest of systems are negative. PAST MEDICAL HISTORY: Atrial fibrillation, diabetes mellitus, hypertension, hyperlipidemia, and kidney stones. PAST SURGICAL HISTORY: Heart catheterization, EGD, colonoscopy, cataract surgery, right foot bunionectomy. SOCIAL HISTORY: Current everyday smoker. No drinking or drug use. FAMILY HISTORY: Mother with history of diabetes. ALLERGIES: HYDROMORPHONE. MEDICATIONS: The patient is currently on Unasyn 3 grams q.8 hours. He is on Tenormin, Cardura, Dilaudid, Imdur, Restoril, Coumadin, Narcan, Zofran, Protonix, Rythmol, Requip, , Coumadin. PHYSICAL EXAMINATION: VITAL SIGNS: Blood pressure 119/50 with a pulse of 73, temperature 99.2, T-max is 102, he is 92% on room air. GENERAL DESCRIPTION: An elderly male lying in bed in no distress. No tachypnea or accessory muscles of respiration use. HEENT EXAMINATION: Scleral icterus is positive. Oral mucous membranes are dry, no pharyngeal erythema or thrush. NECK: Trachea central, no thyromegaly. LUNGS: Unlabored breathing, decreased breath sounds at bases with no wheezes or crackles. Heart S1, S2. Regular rate and rhythm. ABDOMEN: Soft, no tenderness. No guarding or rigidity. EXTREMITIES: No edema of the feet. SKIN: No rash or mass palpable. NEUROLOGICAL: Patient is awake, alert, oriented times three. Mood and affect normal. LABS: BUN of 15, creatinine 0.81. Bilirubin is 3, AST 2077, ALT is 1666. Lipase is 2525. Urine is negative. Blood culture with Gram-negative bacilli. DIAGNOSTIC IMPRESSION: Patient admitted to the hospital with sepsis in this patient who did have a fever, elevated lactic acid, now with evidence of Gram-negative bacteremia, source is likely hepatobiliary, as the patient did have significantly elevated liver enzymes as well as an elevated lipase. PLAN: 1. We will adjust the dose of Unasyn to 3 grams q.6 hours until blood cultures will be repeated to document clearance of bacteremia. 2. We will follow on clinical condition and culture to further adjust medication if needed. Thank you for this consultation. Will follow this patient along with you. MMODL / IJN: [id number] /
[2020-08-08 10:02] LABS: Hepatitis A Antibody IgM Non-Reactive (Non-Reactive); Hepatitis B Core IgM Non-Reactive (Non-Reactive); Hepatitis B Surface Antigen Non-Reactive (Non-Reactive); Hepatitis C IgG Antibody Non-Reactive (Non-Reactive)
[2020-08-08 11:43] LABS: Alpha Fetoprotein, Tumor Mkr <2.5 ng/mL (0.0-7.9)
--- NOTE | 2020-08-08 11:54 | P.PN ---
Subjective Progress Note Date: 08/08/20 Luis Vázquez, is a 69-year-old male who presented to [facility] emergency room with a chief complaint of chest pain, abdominal pain and shaking chills he was evaluated in emergency room, vital examination on presentation revealed a temperature of 102.5 pulse 94 respiration 18 blood pr essure 166/91 pulse ox 96% on room air EKG did not reveal any evidence of acute ischemic changes troponin level was less than 0.012, however patient had elevated AST at 2077 elevated a LT at 1666 elevated alkaline phosphatase at 162 elevated lipase at 2525 elevated total bilirubin at 3.0 and elevated plasma lactic acid at 2.5 CBC did not reveal any acute abnormality, urine analysis did not reveal any evidence of infection, influenza testing and Covid 19 testing were negative. Chest x-ray revealed slight coarsening of the lung markings otherwise no significant abnormality. Patient underwent computed tomography scan of the abdomen and pelvis with contrast that revealed small pericardial effusion unchanged from before mild abdominal aortic aneurysm and changed from before no evidence of acute pancreatitis, and no liver abnormality. There was evidence of prior cholecystectomy. Blood cultures were done and patient was admitted to medical floor for further evaluation and treatment he was started on IV antibiotic Unasyn in the emergency room. This morning blood culture were reported as positive for gram-negative bacilli. Patient stated that he had a significant fall 2 weeks ago at that time he was seen in the emergency room he had head injury and injury to the right ribs area he was evaluated in the emergency room at that time and was discharged home. His past medical history is significant for diabetes mellitus, chronic atrial fibrillation maintained on Coumadin, history of hypertension, history of benign prostatic hypertrophy, and history of hyperlipidemia Objective - Vital Signs Vital signs: Vital Signs Temp 98.9 F 08/08/20 08:00 Pulse 70 08/08/20 08:00 Resp 17 08/08/20 08:00 BP 152/76 08/08/20 08:00 Pulse Ox 97 08/08/20 08:00 Intake & Output 08/07/20 08/08/20 08/08/20 18:59 06:59 18:59 Intake Total 200 Balance 200 Intake: Oral 200 Other: Voiding Method Toilet # Voids 1 1 - Exam In general patient is alert and oriented 3 in no apparent distress he is sitting up on the side of the bed answering questions appropriately HEENT head normocephalic and atraumatic Neck is supple no JVD no goiter no lymphadenopathy Chest exam reveals a clear respiratory sounds no crackles no wheezing Cardiac exam reveals regular heart sounds S1 and S2 no gallops no murmurs Abdomen is soft, with tenderness in the epigastric area no organomegaly with normal bowel sounds Extremity exam reveals no edema no cyanosis or clubbing Neurological examination reveals no gross focal deficit - Labs CBC & Chem 7: 08/08/20 05:31 08/08/20 05:31 Labs: Abnormal Lab Results - Last 24 Hours (Table) 08/07/20 08/08/20 08/08/20 Range/Units 20:29 05:31 05:31 RBC (4.30-5.90) m/uL Hct (39.0-53.0) % Plt Count (150-450) k/uL Lymphocytes # (1.0-4.8) k/uL PT 26.2 H (9.0-12.0) sec INR 2.7 H (<1.2) Potassium 3.4 L (3.5-5.5) mmol/L Glucose 67 L (70-110) mg/dL POC Glucose (mg/dL) 61 L (75-99) mg/dL Iron 14 L (65-175) ug/dL TIBC 222 L (228-460) ug/dL % Saturation 6.31 L (15.00-50.00) Transferrin (204.0-354.0) mg/dL Ferritin 1661.7 H (22.0-322.0) ng/mL Total Bilirubin 3.7 H (0.2-1.2) mg/dL Conjugated Bilirubin 2.70 H (0.20-0.40) mg/dL AST 334 H (14-35) U/L ALT 756 H (10-49) U/L Alkaline Phosphatase 146 H (41-126) U/L Total Protein 5.0 L (6.2-8.2) g/dL Total Protein (PEP) (6.2-8.2) g/dL Albumin 3.30 L (3.80-4.90) g/dL 08/08/20 08/08/20 Range/Units 05:31 05:31 RBC 4.03 L (4.30-5.90) m/uL Hct 38.0 L (39.0-53.0) % Plt Count 111 L (150-450) k/uL Lymphocytes # 0.3 L (1.0-4.8) k/uL PT (9.0-12.0) sec INR (<1.2) Potassium (3.5-5.5) mmol/L Glucose (70-110) mg/dL POC Glucose (mg/dL) (75-99) mg/dL Iron (65-175) ug/dL TIBC (228-460) ug/dL % Saturation (15.00-50.00) Transferrin 142.0 L (204.0-354.0) mg/dL Ferritin (22.0-322.0) ng/mL Total Bilirubin (0.2-1.2) mg/dL Conjugated Bilirubin (0.20-0.40) mg/dL AST (14-35) U/L ALT (10-49) U/L Alkaline Phosphatase (41-126) U/L Total Protein (6.2-8.2) g/dL Total Protein (PEP) 5.0 L (6.2-8.2) g/dL Albumin (3.80-4.90) g/dL Microbiology - Last 24 Hours (Table) 08/06/20 19:56 Blood Culture Gram Stain - Preliminary Blood Blood Culture - Preliminary Gram Neg Bacilli 08/06/20 21:53 Blood Culture - Final Blood Assessment and Plan Plan: 1. Acute pancreatitis, with significant elevation in lipase yesterday and now down to normal 2. Acute hepatitis with elevated liver enzymes improving, cause is unclear possibly patient had a small choledocholithiasis that has passed currently he has no pain in the epigastric or right upper quadrant and his liver enzymes are improving will continue to monitor 3. Sepsis with positive blood cultute for gram-negative bacilli, patient was started on Unasyn infectious disease consultation was requested 4. Lactic acidosis, likely related to sepsis 5. Underlying history of diabetes mellitus 6. Underlying history of atrial fibrillation maintained on Coumadin 7. Underlying history of hypertension 8. Underlying history of hyperlipidemia At this time will continue with IV fluid patient was kept nothing by mouth, he was started on clear liquid diet by gastroenterology today Will repeat labs in a.m. Continue with IV Unasyn at this time consultation for infectious disease was initiated Will follow closely
[2020-08-08 11:59] LABS: Ceruloplasmin 21.9 mg/dL (20.0-60.0)
[2020-08-08] MEDS: WARFARIN 7.5 MG TAB PO SCH (17:47)
--- NOTE | 2020-08-09 00:19 | PN ---
PROGRESS NOTE DATE OF SERVICE: 08/08/2020 REASON FOR FOLLOWUP: E coli bacteremia secondary to abdominal source. INTERVAL HISTORY: The patient is currently afebrile, though he did have a temperature of 101 degrees Fahrenheit this morning. The patient has been complaining of frequency of urination from the IV fluid and discomfort associated with right upper quadrant abdominal pain; it has not changed significantly. Some nausea but no vomiting. No chest pain, shortness of breath or cough. PHYSICAL EXAMINATION: Blood pressure 121/67, pulse of 78, temperature 99.9. He is 95% on 3 L nasal cannula. General description is an elderly male up in the chair in no distress. RESPIRATORY SYSTEM: Unlabored breathing with decreased breath sounds at the base. No wheeze. HEART: S1, S2. Regular rate and rhythm. ABDOMEN: Some tenderness. LABS: Hemoglobin is 13.3, white count 7.1. Liver enzymes remain elevated. Hepatitis panel is negative. Blood culture with an E coli. DIAGNOSTIC IMPRESSION AND PLAN: Patient with Escherichia coli bacteremia. Source is possible cholangitis in this patient who did have significantly elevated liver enzymes, though no structural abnormality was seen on the ultrasound or CT. Patient is covered with Unasyn; to continue and will monitor his clinical course closely. MMODL / IJN: [id number] /
[2020-08-09] MEDS: SODIUM CHLORIDE 0.9% 1,000 ML IV SCH (01:10)
[2020-08-09] MEDS: AMPICILLIN-SULBACTAM 3 GM in SODIUM CHLORIDE 0.9% 100 ML IVPB SCH ×3 (06:00→17:55)
[2020-08-09] MEDS: PANTOPRAZOLE 40 MG TABLET PO SCH (08:21)
[2020-08-09] MEDS: atenoloL 25 MG TAB PO SCH (08:21)
[2020-08-09] MEDS: lisinopriL 5 MG TAB PO SCH (08:22)
[2020-08-09] MEDS: MULTIVITAMINS, THERA 1 EACH TAB PO SCH (08:22)
[2020-08-09] MEDS: ISOSORBIDE MONONITRATE ER 60 MG TAB.ER.24H PO SCH (08:22)
[2020-08-09] MEDS: DOXAZOSIN 2 MG TAB PO SCH (08:22)
[2020-08-09] MEDS: PROPAFENONE 150 MG TAB PO SCH ×3 (08:22→20:27)
[2020-08-09 09:30] LABS: Basophils % (A) 0 %; Eosinophils # (A) 0.1 k/uL (0-0.7); Eosinophils % (A) 1 %; HCT 38.4 % (39.0-53.0); HGB 13.5 gm/dL (13.0-17.5); Lymphocytes # (A) 0.4 k/uL (1.0-4.8); Lymphocytes % (A) 9 %; MCH 33.1 pg (25.0-35.0); MCHC 35.1 g/dL (31.0-37.0); MCV 94.5 fL (80.0-100.0); Mean Platelet Volume 8.5; Monocytes # (A) 0.4 k/uL (0-1.0); Monocytes % (A) 8 %; Neutrophils # (A) 3.7 k/uL (1.3-7.7); Neutrophils % (A) 79 %; RBC 4.07 m/uL (4.30-5.90); RDW 12.7 % (11.5-15.5); WBC 4.6 k/uL (3.8-10.6)
[2020-08-09 12:12] LABS: INR 2.38 (0.90-1.11); Prothrombin Time 24.1 sec (9.9-11.9)
--- NOTE | 2020-08-09 13:16 | P.PN ---
Subjective Progress Note Date: 08/08/20 Principal diagnosis: Elevated liver enzymes, pancreatitis Patient seen lying in bed reporting that her abdominal pain is improving. Asking for his diet to be advanced. No acute complaints. Objective - Vital Signs Vital signs: Vital Signs Temp 98.9 F 08/08/20 08:00 Pulse 70 08/08/20 08:00 Resp 17 08/08/20 08:00 BP 152/76 08/08/20 08:00 Pulse Ox 97 08/08/20 08:00 Intake & Output 08/07/20 08/08/20 08/08/20 18:59 06:59 18:59 Intake Total 200 Balance 200 Intake: Oral 200 Other: Voiding Method Toilet # Voids 1 - Exam On physical examination, patient appears comfortable in no apparent distress. HEAD: Normocephalic, atraumatic. EYES: No scleral icterus. No conjunctival injection. MOUTH: No lesions, tongue midline. NECK: Trachea midline, no gross abnormalities. ABDOMEN: Soft, obese. Bowel sounds are positive. No organomegaly. No guarding or rigidity. EXTREMITIES: No pedal edema. SKIN: No rashes, no jaundice. NEUROLOGIC: Alert and oriented x3. No focal deficits. - Labs CBC & Chem 7: 08/09/20 07:30 08/08/20 05:31 Labs: Abnormal Lab Results - Last 24 Hours (Table) 08/07/20 08/08/20 08/08/20 Range/Units 20:29 05:31 05:31 RBC (4.30-5.90) m/uL Hct (39.0-53.0) % Plt Count (150-450) k/uL Lymphocytes # (1.0-4.8) k/uL PT 26.2 H (9.0-12.0) sec INR 2.7 H (<1.2) Potassium 3.4 L (3.5-5.5) mmol/L Glucose 67 L (70-110) mg/dL POC Glucose (mg/dL) 61 L (75-99) mg/dL Iron 14 L (65-175) ug/dL TIBC 222 L (228-460) ug/dL % Saturation 6.31 L (15.00-50.00) Ferritin 1661.7 H (22.0-322.0) ng/mL Total Bilirubin 3.7 H (0.2-1.2) mg/dL Conjugated Bilirubin 2.70 H (0.20-0.40) mg/dL AST 334 H (14-35) U/L ALT 756 H (10-49) U/L Alkaline Phosphatase 146 H (41-126) U/L Total Protein 5.0 L (6.2-8.2) g/dL Total Protein (PEP) (6.2-8.2) g/dL Albumin 3.30 L (3.80-4.90) g/dL 08/08/20 08/08/20 Range/Units 05:31 05:31 RBC 4.03 L (4.30-5.90) m/uL Hct 38.0 L (39.0-53.0) % Plt Count 111 L (150-450) k/uL Lymphocytes # 0.3 L (1.0-4.8) k/uL PT (9.0-12.0) sec INR (<1.2) Potassium (3.5-5.5) mmol/L Glucose (70-110) mg/dL POC Glucose (mg/dL) (75-99) mg/dL Iron (65-175) ug/dL TIBC (228-460) ug/dL % Saturation (15.00-50.00) Ferritin (22.0-322.0) ng/mL Total Bilirubin (0.2-1.2) mg/dL Conjugated Bilirubin (0.20-0.40) mg/dL AST (14-35) U/L ALT (10-49) U/L Alkaline Phosphatase (41-126) U/L Total Protein (6.2-8.2) g/dL Total Protein (PEP) 5.0 L (6.2-8.2) g/dL Albumin (3.80-4.90) g/dL Microbiology - Last 24 Hours (Table) 08/06/20 19:56 Blood Culture Gram Stain - Preliminary Blood Blood Culture - Preliminary Gram Neg Bacilli 08/06/20 21:53 Blood Culture - Final Blood Assessment and Plan (1) Elevated liver enzymes Narrative/Plan: 69-year-old male with multiple medical comorbidities presenting with a constellation of symptoms including abdominal and chest pain, fevers and chills and cough. Testing for coronavirus was negative. Patient was found to have markedly elevated lipase on presentation at 2525 and is currently being treated for acute uncomplicated pancreatitis. Computed tomography scan of the abdomen and ultrasound of the abdomen were negative for any acute liver pathology or ductal dilation to suggest choledocholithiasis. Markedly elevated liver enzymes are concerning for possible ischemic hepatitis in the setting of pancreatitis a nd possible sepsis or infectious hepatitis. The patient denies any prior history of liver dysfunction, he is not drinking alcohol over the past 40 years and denies any high risk behavior. Current Visit: Yes Status: Acute Code(s): R74.8 - ABNORMAL LEVELS OF OTHER SERUM ENZYMES SNOMED Code(s): 986090731 (2) Pancreatitis Current Visit: Yes Status: Acute Code(s): K85.90 - ACUTE PANCREATITIS WITHOU T NECROSIS OR INFECTION, UNSP SNOMED Code(s): 72466513 (3) Abdominal pain Current Visit: No Status: Acute Code(s): R10.9 - UNSPECIFIED ABDOMINAL PAIN SNOMED Code(s): 94783458 Plan: Supportive care Okay for full liquid diet Continue IV fluid hydration Continue pain control Full liver serology ordered for further evaluation, suspicion is for possible infectious or ischemic hepatitis in the setting of pancreatitis, evaluation has been negative to date Patient may require further imaging if liver enzymes do not improve and workup is unremarkable Thank you for allowing us to participate in the care of the patient we will continue to follow
[2020-08-09 13:39] LABS: African American GFR (CKD) 105.6 (60.0-200.0); Albumin 3.1 g/dL (3.80-4.90); Albumin/Globulin Ratio 1.94 (1.60-3.17); Anion Gap 8.4 mmol/L (4.00-12.00); BUN/Creat Ratio 12.5 Ratio (12.00-20.00); Calcium 8.4 mg/dL (8.7-10.3); Carbon Dioxide 23.6 mmol/L (21.6-31.8); Globulin 1.6 g/dL (1.6-3.3); Non-African American GFR(CKD) 91.1 (60.0-200.0); Potassium 3.6 mmol/L (3.5-5.5); Total Bilirubin 2.1 mg/dL (0.2-1.2); Total Protein 4.7 g/dL (6.2-8.2)
[2020-08-09 14:17] LABS: Platelet Count 97 k/uL (150-450)
--- NOTE | 2020-08-09 15:22 | P.PN ---
Subjective Progress Note Date: 08/09/20 Luis Vázquez, is a 69-year-old male who presented to [facility] emergency room with a chief complaint of chest pain, abdominal pain and shaking chills he was evaluated in emergency room, vital examination on presentation revealed a temperature of 102.5 pulse 94 respiration 18 blood pr essure 166/91 pulse ox 96% on room air EKG did not reveal any evidence of acute ischemic changes troponin level was less than 0.012, however patient had elevated AST at 2077 elevated a LT at 1666 elevated alkaline phosphatase at 162 elevated lipase at 2525 elevated total bilirubin at 3.0 and elevated plasma lactic acid at 2.5 CBC did not reveal any acute abnormality, urine analysis did not reveal any evidence of infection, influenza testing and Covid 19 testing were negative. Chest x-ray revealed slight coarsening of the lung markings otherwise no significant abnormality. Patient underwent computed tomography scan of the abdomen and pelvis with contrast that revealed small pericardial effusion unchanged from before mild abdominal aortic aneurysm and changed from before no evidence of acute pancreatitis, and no liver abnormality. There was evidence of prior cholecystectomy. Blood cultures were done and patient was admitted to medical floor for further evaluation and treatment he was started on IV antibiotic Unasyn in the emergency room. This morning blood culture were reported as positive for gram-negative bacilli. Patient stated that he had a significant fall 2 weeks ago at that time he was seen in the emergency room he had head injury and injury to the right ribs area he was evaluated in the emergency room at that time and was discharged home. His past medical history is significant for diabetes mellitus, chronic atrial fibrillation maintained on Coumadin, history of hypertension, history of benign prostatic hypertrophy, and history of hyperlipidemia On 08/09/2020 patient was seen and examined on the medical floor he is alert and oriented 3 in no apparent distress there is no fever or chills no headache or dizziness no chest pain no shortness of breath no cough no nausea or vomiting no abdominal pain no diarrhea no blood in the stools no burning with urination no frequency or urgency and no hematuria Objective - Vital Signs Vital signs: Vital Signs Temp 97.8 F 08/09/20 05:00 Pulse 51 L 08/09/20 05:00 Resp 16 08/09/20 05:00 BP 154/74 08/09/20 05:00 Pulse Ox 96 08/09/20 09:00 Intake & Output 08/08/20 08/09/20 08/09/20 18:59 06:59 18:59 Intake Total 1300 296 Balance 1300 296 Weight 97.3 kg 98 kg Intake: Intake, IV Titration 1300 Amount Sodium Chloride 0.9% 1, 1300 000 ml @ 130 mls/hr IV . Q7H42M [facility] Rx#:[id number] Oral 296 Other: # Voids 2 - Exam In general patient is alert and oriented 3 in no apparent distress he is sitting up on the side of the bed answering questions appropriately HEENT head normocephalic and atraumatic Neck is supple no JVD no goiter no lymphadenopathy Chest exam reveals a clear respiratory sounds no crackles no wheezing Cardiac exam reveals regular heart sounds S1 and S2 no gallops no murmurs Abdomen is soft, with tenderness in the epigastric area no organomegaly with normal bowel sounds Extremity exam reveals no edema no cyanosis or clubbing Neurological examination reveals no gross focal deficit - Labs CBC & Chem 7: 08/09/20 07:30 08/09/20 07:30 Labs: Abnormal Lab Results - Last 24 Hours (Table) 08/09/20 08/09/20 Range/Units 07:30 07:30 RBC 4.07 L (4.30-5.90) m/uL Hct 38.4 L (39.0-53.0) % PT 24.1 H (9.9-11.9) sec INR 2.38 H (0.90-1.11) Microbiology - Last 24 Hours (Table) 08/08/20 05:31 Blood Culture - Preliminary Blood No Growth after 24 hours 08/06/20 19:56 Blood Culture Gram Stain - Final Blood Blood Culture - Final Escherichia coli Assessment and Plan Plan: 1. Acute pancreatitis, with significant elevation in lipase yesterday and now down to normal 2. Acute hepatitis with elevated liver enzymes improving, cause is unclear possibly patient had a small choledocholithiasis that has passed currently he has no pain in the epigastric or right upper quadrant and his liver enzymes are improving will continue to monitor 3. Sepsis with positive blood cultute for gram-negative bacilli, patient was started on Unasyn infectious disease consultation was requested 4. Lactic acidosis, likely related to sepsis 5. Underlying history of diabetes mellitus 6. Underlying history of atrial fibrillation maintained on Coumadin 7. Underlying history of hypertension 8. Underlying history of hyperlipidemia At this time will continue with IV fluid patient was kept nothing by mouth, he was started on clear liquid diet by gastroenterology today Will repeat labs in a.m. Continue with IV Unasyn at this time consultation for infectious disease was initiated Will follow closely
[2020-08-09] MEDS: WARFARIN 7.5 MG TAB PO SCH (17:55)
[2020-08-10] MEDS: AMPICILLIN-SULBACTAM 3 GM in SODIUM CHLORIDE 0.9% 100 ML IVPB SCH ×3 (00:18→13:02)
--- NOTE | 2020-08-10 00:52 | PN ---
PROGRESS NOTE DATE OF SERVICE: 08/09/2020 REASON FOR FOLLOWUP: E coli bacteremia, possible ascending cholangitis. INTERVAL HISTORY: The patient is currently afebrile. The patient is breathing comfortably. The patient denies having any chest pain. No shortness of breath or cough. No abdominal pain or diarrhea. PHYSICAL EXAMINATION: Blood pressure 131/89 with a pulse of 57, temp 97.7. He is 97% on room air. General description is an elderly male up in the chair in no distress. Respiratory system: Unlabored breathing. Clear to auscultation anteriorly. Heart S1, S2. Regular rate and rhythm. ABDOMEN: Soft, no tenderness. LABS: Hemoglobin 13.5, white count 4.7. BUN of 10, creatinine 0.88. DIAGNOSTIC IMPRESSION AND PLAN: Patient with acute E coli bacteremia, source likely ascending cholangitis in this patient who did have significant elevated liver enzymes, though showing a downward trend. The patient is covered with Unasyn. Follow-up blood culture negative. Finish therapy with oral antibiotic. Continue supportive care. MMODL / IJN: [id number] /
[2020-08-10 05:52] LABS: Basophils % (A) 1 %; Eosinophils % (A) 1 %; HCT 40.1 % (39.0-53.0); HGB 14.3 gm/dL (13.0-17.5); Lymphocytes # (A) 0.5 k/uL (1.0-4.8); Lymphocytes % (A) 12 %; MCH 33.3 pg (25.0-35.0); MCHC 35.7 g/dL (31.0-37.0); MCV 93.3 fL (80.0-100.0); Mean Platelet Volume 8.6; Monocytes # (A) 0.3 k/uL (0-1.0); Monocytes % (A) 6 %; Neutrophils # (A) 3.2 k/uL (1.3-7.7); Neutrophils % (A) 77 %; Platelet Count 103 k/uL (150-450); RDW 12.6 % (11.5-15.5); WBC 4.2 k/uL (3.8-10.6)
[2020-08-10 07:25] LABS: Glucose,Whole Blood 145 mg/dL (75-99)
[2020-08-10 07:57] VITALS: RESP 16
[2020-08-10] MEDS: PROPAFENONE 150 MG TAB PO SCH (08:34)
[2020-08-10] MEDS: DOXAZOSIN 2 MG TAB PO SCH (08:34)
[2020-08-10] MEDS: PANTOPRAZOLE 40 MG TABLET PO SCH (08:34)
[2020-08-10] MEDS: lisinopriL 5 MG TAB PO SCH (08:34)
[2020-08-10] MEDS: MULTIVITAMINS, THERA 1 EACH TAB PO SCH (08:34)
[2020-08-10] MEDS: ISOSORBIDE MONONITRATE ER 60 MG TAB.ER.24H PO SCH (08:34)
[2020-08-10] MEDS: atenoloL 25 MG TAB PO SCH (08:34)
[2020-08-10 10:04] LABS: INR 2.41 (0.90-1.11); Prothrombin Time 24.4 sec (9.9-11.9)
[2020-08-10 10:15] LABS: African American GFR (CKD) 111.6 (60.0-200.0); Albumin 3.3 g/dL (3.80-4.90); Albumin/Globulin Ratio 2.06 (1.60-3.17); Anion Gap 6.7 mmol/L (4.00-12.00); BUN/Creat Ratio 11.43 Ratio (12.00-20.00); Calcium 8.6 mg/dL (8.7-10.3); Carbon Dioxide 22.3 mmol/L (21.6-31.8); Globulin 1.6 g/dL (1.6-3.3); Non-African American GFR(CKD) 96.3 (60.0-200.0); Potassium 3.2 mmol/L (3.5-5.5); Total Bilirubin 1.9 mg/dL (0.3-1.2); Total Protein 4.9 g/dL (6.2-8.2)
[2020-08-10] MEDS ORDERED: Potassium Replacement Protocol 1 EACH MISC MISCELLANE PRN (10:55)
--- NOTE | 2020-08-10 11:16 | P.PN ---
Subjective Progress Note Date: 08/10/20 Luis Vázquez, is a 69-year-old male who presented to [facility] emergency room with a chief complaint of chest pain, abdominal pain and shaking chills he was evaluated in emergency room, vital examination on presentation revealed a temperature of 102.5 pulse 94 respiration 18 blood pr essure 166/91 pulse ox 96% on room air EKG did not reveal any evidence of acute ischemic changes troponin level was less than 0.012, however patient had elevated AST at 2077 elevated a LT at 1666 elevated alkaline phosphatase at 162 elevated lipase at 2525 elevated total bilirubin at 3.0 and elevated plasma lactic acid at 2.5 CBC did not reveal any acute abnormality, urine analysis did not reveal any evidence of infection, influenza testing and Covid 19 testing were negative. Chest x-ray revealed slight coarsening of the lung markings otherwise no significant abnormality. Patient underwent computed tomography scan of the abdomen and pelvis with contrast that revealed small pericardial effusion unchanged from before mild abdominal aortic aneurysm and changed from before no evidence of acute pancreatitis, and no liver abnormality. There was evidence of prior cholecystectomy. Blood cultures were done and patient was admitted to medical floor for further evaluation and treatment he was started on IV antibiotic Unasyn in the emergency room. This morning blood culture were reported as positive for gram-negative bacilli. Patient stated that he had a significant fall 2 weeks ago at that time he was seen in the emergency room he had head injury and injury to the right ribs area he was evaluated in the emergency room at that time and was discharged home. His past medical history is significant for diabetes mellitus, chronic atrial fibrillation maintained on Coumadin, history of hypertension, history of benign prostatic hypertrophy, and history of hyperlipidemia On 08/09/2020 patient was seen and examined on the medical floor he is alert and oriented 3 in no apparent distress there is no fever or chills no headache or dizziness no chest pain no shortness of breath no cough no nausea or vomiting no abdominal pain no diarrhea no blood in the stools no burning with urination no frequency or urgency and no hematuria On 08/10/2020 patient is alert and oriented 3. Patient is very anxious to go home. Discussed case with infectious disease per infectious disease patient is not cleared yet though evaluating whether patient needs oral or IV antibiotics. This was discussed with nurse and patient that we are waiting on plan of care per ID prior to discharge. Patient and nurse verbalized understanding. At this time patient denies chest pain or shortness of breath. Patient denies nausea vomiting or diarrhea. Patient denies any urinary burning or frequency. Objective - Vital Signs Vital signs: Vital Signs Temp 98.0 F 08/10/20 07:57 Pulse 59 L 08/10/20 07:57 Resp 16 08/10/20 07:57 BP 177/83 08/10/20 07:57 Pulse Ox 95 08/10/20 07:57 Intake & Output 08/09/20 08/10/20 08/10/20 18:59 06:59 18:59 Intake Total 296 110 Balance 296 110 Intake: Oral 296 110 Other: Voiding Method Toilet Incontinent # Voids 1 3 - Exam In general patient is alert and oriented 3 in no apparent distress he is sitting up on the side of the bed answering questions appropriately HEENT head normocephalic and atraumatic Neck is supple no JVD no goiter no lymphadenopathy Chest exam reveals a clear respiratory sounds no crackles no wheezing Cardiac exam reveals regular heart sounds S1 and S2 no gallops no murmurs Abdomen is soft, with tenderness in the epigastric area no organomegaly with normal bowel sounds Extremity exam reveals no edema no cyanosis or clubbing Neurological examination reveals no gross focal deficit - Labs CBC & Chem 7: 08/10/20 05:32 08/10/20 05:32 Labs: Abnormal Lab Results - Last 24 Hours (Table) 08/09/20 08/09/20 08/09/20 Range/Units 07:30 07:30 07:30 Plt Count 97 L (150-450) k/uL Lymphocytes # 0.4 L (1.0-4.8) k/uL PT 24.1 H (9.9-11.9) sec INR 2.38 H (0.90-1.11) Potassium (3.5-5.5) mmol/L BUN (9.0-27.0) mg/dL BUN/Creatinine Ratio (12.00-20.00) Ratio Glucose (70-110) mg/dL POC Glucose (mg/dL) (75-99) mg/dL Calcium 8.4 L (8.7-10.3) mg/dL Total Bilirubin 2.1 H (0.2-1.2) mg/dL AST 121 H (14-35) U/L ALT 449 H (10-49) U/L Alkaline Phosphatase 163 H (41-126) U/L Total Protein 4.7 L (6.2-8.2) g/dL Albumin 3.10 L (3.80-4.90) g/dL 08/10/20 08/10/20 08/10/20 Range/Units 05:32 05:32 05:32 Plt Count 103 L (150-450) k/uL Lymphocytes # 0.5 L (1.0-4.8) k/uL PT 24.4 H (9.9-11.9) sec INR 2.41 H (0.90-1.11) Potassium 3.2 L (3.5-5.5) mmol/L BUN 8.0 L (9.0-27.0) mg/dL BUN/Creatinine Ratio 11.43 L (12.00-20.00) Ratio Glucose 142 H (70-110) mg/dL POC Glucose (mg/dL) (75-99) mg/dL Calcium 8.6 L (8.7-10.3) mg/dL Total Bilirubin 1.9 H (0.2-1.2) mg/dL AST 82 H (14-35) U/L ALT 360 H (10-49) U/L Alkaline Phosphatase 239 H (41-126) U/L Total Protein 4.9 L (6.2-8.2) g/dL Albumin 3.30 L (3.80-4.90) g/dL 08/10/20 Range/Units 07:01 Plt Count (150-450) k/uL Lymphocytes # (1.0-4.8) k/uL PT (9.9-11.9) sec INR (0.90-1.11) Potassium (3.5-5.5) mmol/L BUN (9.0-27.0) mg/dL BUN/Creatinine Ratio (12.00-20.00) Ratio Glucose (70-110) mg/dL POC Glucose (mg/dL) 145 H (75-99) mg/dL Calcium (8.7-10.3) mg/dL Total Bilirubin (0.2-1.2) mg/dL AST (14-35) U/L ALT (10-49) U/L Alkaline Phosphatase (41-126) U/L Total Protein (6.2-8.2) g/dL Albumin (3.80-4.90) g/dL Microbiology - Last 24 Hours (Table) 08/08/20 05:31 Blood Culture - Preliminary Blood No Growth after 48 hours Assessment and Plan Plan: 1. Acute pancreatitis, with significant elevation in lipase yesterday and now down to normal 2. Acute hepatitis with elevated liver enzymes improving, cause is unclear possibly patient had a small choledocholithiasis that has passed currently he has no pain in the epigastric or right upper quadrant and his liver enzymes are improving will continue to monitor 3. Sepsis with positive blood cultute for gram-negative bacilli, patient was started on Unasyn infectious disease consultation was requested 4. Lactic acidosis, likely related to sepsis 5. Underlying history of diabetes mellitus 6. Underlying history of atrial fibrillation maintained on Coumadin 7. Underlying history of hypertension 8. Underlying history of hyperlipidemia At this time will continue with IV fluid patient was kept nothing by mouth, he was started on clear liquid diet by gastroenterology today Will repeat labs in a.m. Continue with IV Unasyn Awaiting infectious disease her medications upon discharge
[2020-08-10] MEDS: POTASSIUM CHLORIDE ER 20 MEQ TAB.ER PO SCH ×2 (11:38→13:02)
--- NOTE | 2020-08-10 11:59 | P.PN ---
Subjective Progress Note Date: 08/09/20 Principal diagnosis: Elevated liver enzymes, pancreatitis Patient seen lying in bed reporting that her abdominal pain is improving. The patient is denying any nausea or vomiting and tolerating his diet. Objective - Vital Signs Vital signs: Vital Signs Temp 97.8 F 08/09/20 05:00 Pulse 51 L 08/09/20 05:00 Resp 16 08/09/20 05:00 BP 154/74 08/09/20 05:00 Pulse Ox 96 08/09/20 09:00 Intake & Output 08/08/20 08/09/20 08/09/20 18:59 06:59 18:59 Intake Total 1300 296 Balance 1300 296 Weight 97.3 kg 98 kg Intake: Intake, IV Titration 1300 Amount Sodium Chloride 0.9% 1, 1300 000 ml @ 130 mls/hr IV . Q7H42M [facility] Rx#:[id number] Oral 296 Other: # Voids 2 - Exam On physical examination, patient appears comfortable in no apparent distress. HEAD: Normocephalic, atraumatic. EYES: No scleral icterus. No conjunctival injection. MOUTH: No lesions, tongue midline. NECK: Trachea midline, no gross abnormalities. ABDOMEN: Soft, obese. Bowel sounds are positive. No organomegaly. No guarding or rigidity. EXTREMITIES: No pedal edema. SKIN: No rashes, no jaundice. NEUROLOGIC: Alert and oriented x3. No focal deficits. - Labs CBC & Chem 7: 08/10/20 05:32 08/10/20 05:32 Labs: Abnormal Lab Results - Last 24 Hours (Table) 08/09/20 08/09/20 08/09/20 Range/Units 07:30 07:30 07:30 RBC 4.07 L (4.30-5.90) m/uL Hct 38.4 L (39.0-53.0) % PT 24.1 H (9.9-11.9) sec INR 2.38 H (0.90-1.11) Calcium 8.4 L (8.7-10.3) mg/dL Total Bilirubin 2.1 H (0.2-1.2) mg/dL AST 121 H (14-35) U/L ALT 449 H (10-49) U/L Alkaline Phosphatase 163 H (41-126) U/L Total Protein 4.7 L (6.2-8.2) g/dL Albumin 3.10 L (3.80-4.90) g/dL Microbiology - Last 24 Hours (Table) 08/08/20 05:31 Blood Culture - Preliminary Blood No Growth after 24 hours 08/06/20 19:56 Blood Culture Gram Stain - Final Blood Blood Culture - Final Escherichia coli Assessment and Plan (1) Elevated liver enzymes Narrative/Plan: 69-year-old male with multiple medical comorbidities presenting with a constellation of symptoms including abdominal and chest pain, fevers and chills and cough. Testing for coronavirus was negative. Patient was found to have markedly elevated lipase on presentation at 2525 and is currently being treated for acute uncomplicated pancreatitis. Computed tomography scan of the abdomen and ultrasound of the abdomen were negative for any acute liver pathology or ductal dilation to suggest choledocholithiasis. Markedly elevated liver enzymes are concerning for possible ischemic hepatitis in the setting of pancreatitis and possible sepsis or infectious hepatitis. The patient denies any prior history of liver dysfunction, he is not drinking alcohol over the past 40 years and denies any high risk behavior. Liver enzymes continue to improve, suspicion is for ischemic hepatitis with liver serology negative to date. Current Visit: Yes Status: Acute Code(s): R74.8 - ABNORMAL LEVELS OF OTHER SERUM ENZYMES SNOMED Code(s): 221339017 (2) Pancreatitis Current Visit: Yes Status: Acute Code(s): K85.90 - ACUTE PANCREATITIS WITHOUT NECROSIS OR INFECTION, UNSP SNOMED Code(s): 41733520 (3) Abdominal pain Current Visit: No Status: Acute Code(s): R10.9 - UNSPECIFIED ABDOMINAL PAIN SNOMED Code(s): 26047627 Plan: Supportive care Okay for diet as tolerated Continue IV fluid hydration Continue pain control Full liver serology ordered for further evaluation, suspicion is for possible infectious or ischemic hepatitis in the setting of pancreatitis, evaluation has been negative to date Thank you for allowing us to participate in the care of the patient we will continue to follow
[2020-08-10 12:09] LABS: Glucose,Whole Blood 236 mg/dL (75-99)
[2020-08-10 12:58] VITALS: BP 147/78; PULSE 57; TEMP 98.8
[2020-08-10 14:02] LABS: Glucose,Whole Blood 203 mg/dL (75-99)
--- NOTE | 2020-08-10 15:29 | PN ---
PROGRESS NOTE DATE OF SERVICE: 08/10/2020 REASON FOR FOLLOWUP: E coli bacteremia source likely ascending cholangitis. INTERVAL HISTORY: Patient is currently afebrile. Patient is breathing comfortably. Patient denies having any chest pain or shortness of breath. No cough. No nausea. No vomiting. No abdominal pain or diarrhea. Anxious to go home. PHYSICAL EXAMINATION: Blood pressure 147/78 with a pulse of 57, temperature 98.8. He is 96% on room air. General description is an elderly male up in the chair in no distress. Respiratory system: Unlabored breathing. Clear to auscultation anteriorly. Heart S1, S2. Regular rate and rhythm. ABDOMEN: Soft, no tenderness. LABS: Hemoglobin is 14.2, white count 4.2. INR is 2.41. Liver enzymes improved. DIAGNOSTIC IMPRESSION AND PLAN: Patient with E. coli bacteremia, source likely ascending cholangitis. Blood culture repeat has been negative. He is insisting on going home. Prescription for Augmentin has been sent to pharmacy. INR needs to be monitored closely while on antibiotics. His questions and concerns were answered. MMODL / IJN: [id number] /
[2020-08-10] MEDS ORDERED: INSULIN ASPART (NovoLOG) 100 UNIT/ML VIAL SQ SCH (17:30)
[2020-08-11 02:31] LABS: Herpes simplex I and/or II IgM 0.26 INDEX (<=0.90)
[2020-08-11 03:26] LABS: EBV - VCA IgM <10.0 U/mL (<36.0)
[2020-08-11 12:08] LABS: Liver/Kidney Microsome Antibod 1.4 UNITS (<=20)
[2020-08-11 13:14] LABS: Albumin 2.86 g/dL (3.80-4.90)
== END 2020-08-10 15:28 | disposition home or self-care (01) | DRG 871 ==
LOC: EC 19:24 → 5NMEDONC 23:44
PROVIDERS: ADMIT Internal Medicine; ATTEND Internal Medicine
DX: A41.51 Sepsis due to Escherichia coli [E. coli] (principal); K85.90 Acute pancreatitis without necrosis or infection, unspecified; K83.09 Other cholangitis; B17.9 Acute viral hepatitis, unspecified; E87.2 Acidosis; I31.3 Pericardial effusion (noninflammatory); I48.20 Chronic atrial fibrillation, unspecified; F10.21 Alcohol dependence, in remission; F17.210 Nicotine dependence, cigarettes, uncomplicated; E11.9 Type 2 diabetes mellitus without complications; E78.5 Hyperlipidemia, unspecified; I10 Essential (primary) hypertension; I71.4 Abdominal aortic aneurysm, without rupture; K72.90 Hepatic failure, unspecified without coma; K86.89 Other specified diseases of pancreas; N40.0 Benign prostatic hyperplasia without lower urinary tract symptoms; S09.90XD Unspecified injury of head, subsequent encounter; Z20.828 Contact with and (suspected) exposure to other viral communicable diseases; W19.XXXD Unspecified fall, subsequent encounter; Z79.01 Long term (current) use of anticoagulants; Z79.84 Long term (current) use of oral hypoglycemic drugs; Z79.899 Other long term (current) drug therapy; Z83.3 Family history of diabetes mellitus; Z86.73 Personal history of transient ischemic attack (TIA), and cerebral infarction without residual deficits; Z87.442 Personal history of urinary calculi; Z90.49 Acquired absence of other specified parts of digestive tract; Z98.41 Cataract extraction status, right eye; Z88.5 Allergy status to narcotic agent
CPT/HCPCS: 36415; 71046; 74177; 76705; 80053; 80074; 81003; 82103; 82105; 82248; 82390; 82728; 83516; 83540; 83550; 83605; 83690; 84165; 84466; 84484; 85025; 85610; 85730; 86038; 86376; 86645; 86665; 86694; 87040; 87077; 87186; 87502; 87635; 93005; 96361; 96365; 99285

== ENCOUNTER → 2021-11-23 | Outpatient (CLI) | payer MEDICARE ==
--- NOTE | 2021-11-24 07:48 | XR ---
EXAMINATION TYPE: XR lumbosacral spine 5 views DATE OF EXAM: 11/23/2021 Comparison: 12/19/2009 Clinical History: 71-year-old male M54.50 Findings: A round density measuring 1.2 cm projecting along the right paramedian upper abdomen probably suggest ashutosh of external artifact or ingested material. We see cholecystectomy clips at the margin of the imag e. 5 lumbar type vertebral bodies. No pars interarticularis defect is identified. There is increased grade 1 anterolisthesis at L4-L5 likely secondary to hypertrophic facet arthropathy which is also pro gressed in the interval. Moderate degenerative disc disease L-1-L2 and L5-S1 with disc space narrowin g and endplate spondylosis. Mild degenerative disc disease elsewhere in the lumbar spine, also progre ssed at L4-L5 in the interval. Vertebral body heights are preserved. Impression: 1. Progressive hypertrophic facet arthropathy compared to 2019 with increased grade 1 anterolisthesis of L4-L5. 2. Degenerative disc disease is also progressed now moderate at L1-L2 and L5-S1. Mild elsewhere in th e lumbar spine, also progressed at L4-L5. 3. No vertebral compression collapse.
== END | disposition home or self-care (01) ==
LOC: RADXRMAIN 16:55
PROVIDERS: ATTEND Internal Medicine
DX: M47.816 Spondylosis without myelopathy or radiculopathy, lumbar region (principal); M51.37 Other intervertebral disc degeneration, lumbosacral region; M43.16 Spondylolisthesis, lumbar region
CPT/HCPCS: 72110

== ENCOUNTER → 2022-02-25 | Outpatient (CLI) | payer MEDICARE ==
--- NOTE | 2022-02-25 14:46 | XR ---
EXAMINATION TYPE: XR lumbosacral spine 5 views DATE OF EXAM: 02/25/2022 Comparison: 11/23/2021 Clinical History: 71-year-old male low back pain Findings: Dextroconvex curvature of the lumbar spine. Degenerative change left SI joint. Hypertrophic facet art hropathy mid to lower lumbar spine with a prominent grade 1 anterolisthesis L4-L5. Moderate degenerat ashutosh disc disease with disc space narrowing, endplate sclerosis and spondylosis L5-S1. Mild to moderat e degenerative disc disease L-1-L2. Vertebral body heights are preserved. No pars interarticularis de fect seen. Impression: 1. Dextroconvex curvature/scoliosis of the lumbar spine. 2. Hypertrophic facet arthropathy mid to lower lumbar spine with a grade 1 anterolisthesis at L4-L5. 3. Moderate degenerative disc disease L5-S1. Mild to moderate at L1-L2. 4. No vertebral compression collapse.
== END | disposition home or self-care (01) ==
LOC: RADXRMAIN 11:23
PROVIDERS: ATTEND Internal Medicine
DX: M47.816 Spondylosis without myelopathy or radiculopathy, lumbar region (principal); M51.37 Other intervertebral disc degeneration, lumbosacral region; M41.9 Scoliosis, unspecified
CPT/HCPCS: 72110

== ENCOUNTER → 2022-05-18 | Outpatient (CLI) | payer MEDICARE ==
--- NOTE | 2022-05-21 07:31 | US ---
EXAMINATION TYPE: US kidneys/renal and bladder DATE OF EXAM: 05/19/2022 COMPARISON: NONE CLINICAL HISTORY: R10.9 LT FLANK PAIN. Left flank pain, history of kidney stones EXAM MEASUREMENTS: Right Kidney: 12.0 x 5.9 x 6.5 cm Left Kidney: 10.7 x 4.8 x 6.1 cm Right Kidney: multiple cysts, largest = 4.1cm upper pole Left Kidney: wnl Bladder: wnl Bilateral Jets seen: no There is no evidence for hydronephrosis at this point in time. No nephrolithiasis is seen. No solid masses are identified. The urinary bladder is anechoic. Bilateral ureteral jets are seen. IMPRESSION: Multiple right-sided renal cysts.
== END | disposition home or self-care (01) ==
LOC: RADUSWWP 20:34
PROVIDERS: ATTEND Internal Medicine
DX: N28.1 Cyst of kidney, acquired (principal)
CPT/HCPCS: 76770

== ENCOUNTER → 2023-01-05 | Outpatient (CLI) | payer MEDICARE ==
--- NOTE | 2023-01-05 12:50 | CT ---
EXAMINATION TYPE: CT lumbar spine wo con CT DLP: 1035.90 mGycm, Automated exposure control for dose reduction was used. DATE OF EXAM: 01/05/2023 11:32 AM COMPARISON: CT 08/07/2020, MRI lumbar spine 10/15/2022. CLINICAL INDICATION:Male, 72 years old with history of M43.16 M47.26; Lumbar spondylolisthesis, spond ylosis w/radiculopathy TECHNIQUE: Multiple axial images were obtained from the midportion of T11 through the sacroiliac troy nts. Soft tissue and bone windows in coronal and sagittal planes were obtained and reviewed. Contrast used: none. Oral contrast used: none. FINDINGS: Alignment: There are 5 lumbar type vertebral bodies within grade 1 anterolisthesis of L4 and L5.. Bone: No evidence of fracture is identified. Multilevel osteophyte formation and facet joint arthrop athy and disc bulging is present. There is vacuum disc phenomenon at L5-S1. No evidence of pars interarticularis defects. Discs: T12-L1: No spinal canal or neural foraminal stenosis is identified. L1-L2: Facet joint arthropathy, osteophytes and disc bulging result in mild spinal canal stenosis and mild bilateral neural foraminal stenosis. L2-L3: Disc bulge and facet joint arthropathy result in mild spinal canal and mild bilateral neural f oraminal stenosis. L3-L4: Disc bulge and facet joint arthropathy result in mild spinal canal and mild bilateral neural f oraminal stenosis. L4-L5: Grade 1 anterolisthesis with disc bulging and facet joint arthropathy result in moderate spin al canal stenosis and mild bilateral neural foraminal stenosis. L5-S1: Facet joint arthropathy and disc bulging with mild neural foraminal stenosis bilaterally. The spinal canal is patent. Other: Infrarenal abdominal fusiform aortic aneurysm measuring up to 3.4 x 3.0 cm. Atherosclerosis of the arterial vasculature. Right renal cyst present. Nonobstructing 2 mm left renal calculi present. IMPRESSION: 1. No evidence for spinal fracture. 2. Multilevel disc degeneration changes throughout the spine with at least moderate spinal canal sten osis at L4-L5 secondary to grade 1 anterolisthesis of L4 and L5. No evidence of spondylolysis. 3. Infrarenal abdominal fusiform aortic aneurysm up to 3.4 x 3.0 cm.
== END | disposition home or self-care (01) ==
LOC: RADCTMAIN 10:59
PROVIDERS: ATTEND Orthopaedic Surgery
DX: M43.16 Spondylolisthesis, lumbar region (principal); M47.26 Other spondylosis with radiculopathy, lumbar region; M51.16 Intervertebral disc disorders with radiculopathy, lumbar region; M99.73 Connective tissue and disc stenosis of intervertebral foramina of lumbar region
CPT/HCPCS: 72131

== ENCOUNTER 2024-12-30 18:48 | Emergency (ER) | payer MEDICARE ==
[2024-12-30 18:52] VITALS: TEMP 98.2
[2024-12-30 19:45] LABS: Basophils # (A) 0.04 10*3/uL (0.00-0.10); Basophils % (A) 0.6 %; Eosinophils # (A) 0.23 10*3/uL (0.04-0.35); Eosinophils % (A) 3.6 %; HCT 42.1 % (39.6-50.0); HGB 15.3 g/dL (13.0-17.0); Lymphocytes # (A) 1.37 10*3/uL (0.90-5.00); Lymphocytes % (A) 21.4 %; MCH 33.6 pg (27.0-32.0); MCHC 36.3 g/dL (32.0-37.0); MCV 92.3 fL (80.0-97.0); Mean Platelet Volume 10.1 fL (9.5-12.2); Monocytes # (A) 0.55 10*3/uL (0.20-1.00); Monocytes % (A) 8.6 %; Neutrophils % (A) 65.5 %; Platelet Count 196 10*3/uL (140-440); RBC 4.56 10*6/uL (4.40-5.60); RDW 12.7 % (11.5-14.5); WBC 6.41 10*3/uL (4.50-10.00)
[2024-12-30 19:55] LABS: INR 3.7 (<1.2); Partial Thromboplastin Time 38.7 sec (22.0-30.0); Prothrombin Time 36.5 sec (10.0-12.5)
[2024-12-30 19:56] LABS: ALT 19 U/L (4-49); AST 23 U/L (17-59); African American GFR (CKD) >90 (>60 ml/min/1.73 sqM); Albumin 3.9 g/dL (3.5-5.0); Alkaline Phosphatase 77 U/L (38-126); Anion Gap 8 mmol/L; Blood Urea Nitrogen 19 mg/dL (9-20); Carbon Dioxide 24 mmol/L (22-30); Chloride 105 mmol/L (98-107); Glucose 315 mg/dL (74-99); Non-African American GFR(CKD) 84 (>60 ml/min/1.73 sqM); Potassium 4.4 mmol/L (3.5-5.1); Sodium 137 mmol/L (137-145); Total Bilirubin 0.6 mg/dL (0.2-1.3); Total Protein 6.3 g/dL (6.3-8.2)
--- NOTE | 2024-12-30 20:04 | XR ---
EXAMINATION TYPE: XR chest 2V DATE OF EXAM: 12/30/2024 7:57 PM COMPARISON: Prior chest radiograph 10/25/2022. CLINICAL INDICATION: Male, 74 years old with history of Chest Pain; [facility] TECHNIQUE: XR chest 2V Frontal and lateral views of the chest. FINDINGS: Lungs/Pleura: There is no evidence of pleural effusion, focal consolidation, or pneumothorax. Pulmonary vascularity: Unremarkable. Heart/mediastinum: Cardiomediastinal silhouette is unremarkable. Other findings: None IMPRESSION: No acute cardiopulmonary disease/process. [facility], , 12/30/2024 8:01 PM
--- NOTE | 2024-12-30 20:06 | XR ---
EXAMINATION TYPE: XR ribs bilateral DATE OF EXAM: 12/30/2024 7:57 PM COMPARISON: Prior chest radiographs, most recently dated 10/25/2022. CLINICAL INDICATION: Male, 74 years old with history of Bilateral rib/back pain following fall; [facility], pain TECHNIQUE: XR ribs bilateral; Frontal and oblique views of the ribs with frontal chest radiograph. FINDINGS: The ribs have a normal appearance. No evidence of fracture. Overall, the lungs are clear. The cardiac silhouette is normal in size. Minimally displaced fractures involving the left fifth, s ixth and seventh lateral ribs. No right-sided acute rib fracture deformity. IMPRESSION: Displaced and nondisplaced fractures involving the left lateral fifth-seventh ribs. [facility], , 12/30/2024 8:03 PM
[2024-12-30] MEDS: ACETAMINOPHEN TAB 500 MG TAB PO STA (20:11)
--- NOTE | 2024-12-30 20:28 | ED ---
Fall HPI - General Chief Complaint: Fall Stated Complaint: Fall Time Seen by Provider: 12/30/24 19:02 Source: patient, RN notes reviewed Mode of arrival: wheelchair - History of Present Illness Initial Comments: This is a 74-year-old male with medical history including A-fib, CVA, DM, hypertension, hyperlipidemia presenting for fall occurring 3 days ago. Patient endorses chest pain, back pain and difficulty breathing. Patient states he suffered a trip and fall forward into his 's wheelchair, striking his chest. Patient states pain is worsening today with pain in his back is the worst (10/10) patient describes pain as stabbing that worsens with movement and deep inhalation. Patient endorses use of warfarin. Patient states that this is his second fall in a month, noting increased weakness recently. Denies striking head, headache, neck pain, extremity paresthesia, hemiaplasia. Denies fever, chills, dizziness, diaphoresis, abdominal pain, N/V/D. MD Complaint: fall Onset/Timin -: days(s) Fall From: standing Fall Witnessed: yes, by family Place Fall Occurred: home Loss of Consciousness: none Prolonged Down Time?: no Symptoms Prior to Fall: none Location: neck, chest, back Severity scale (1-10): 10 Context: tripped/slipped Associated Symptoms: neck pain - Related Data Home Medications Medication Instructions Recorded Confirmed Doxazosin [Cardura] 2 mg PO DAILY 04/02/16 08/06/20 Enalapril [Vasotec] 2.5 mg PO DAILY 04/02/16 08/06/20 Isosorbide Mononitrate ER [Imdur] 60 mg PO DAILY 04/02/16 08/06/20 Propafenone [Rythmol] 150 mg PO TID 04/02/16 08/06/20 Warfarin [Coumadin] 7.5 mg PO HS 04/02/16 08/06/20 atenoloL 25 mg PO DAILY 04/02/16 08/06/20 Omeprazole Magnesium [PriLOSEC OTC] 20 mg PO DAILY 07/06/17 08/06/20 Glimepiride [Amaryl] 4 mg PO DAILY 04/17/19 08/06/20 Multivitamins, Thera [Multivitamin 1 tab PO DAILY 04/17/19 08/06/20 (formulary)] traMADol HCL [Ultram] 50 mg PO Q8H PRN 04/17/19 08/06/20 metFORMIN HCL [Glucophage] 1,000 mg PO BID 09/06/19 08/06/20 rOPINIRole HCL [Requip] 2 mg PO HS 09/06/19 08/06/20 Ergocalciferol [Vitamin D2 50,000 unit PO Q7D 07/25/20 08/06/20 (DRISDOL)] Furosemide [Lasix] 20 mg PO DAILY 07/25/20 08/06/20 Pioglitazone [Actos] 30 mg PO DAILY 07/25/20 08/06/20 Previous Rx's Medication Instructions Recorded Amoxic-Pot Clav 875-125Mg 1 tab PO Q12HR 10 Days #20 tab 08/10/20 [Augmentin 875-125] Allergies Allergy/AdvReac Type Severity Reaction Status Date / Time hydromorphone HCl AdvReac Hallucinati Verified 12/30/24 18:52 [From Dilaudid] ons Review of Systems ROS Statement: Those systems with pertinent positive or pertinent negative responses have been documented in the HPI. ROS Other: All systems not noted in ROS Statement are negative. Past Medical History Past Medical History: Atrial Fibrillation, CVA/TIA, Diabetes Mellitus, Hyperlipidemia, Hypertension Additional Past Medical History / Comment(s): NIDDM, kidney stones History of Any Multi-Drug Resistant Organisms: None Reported Past Surgical History: No Surgical Hx Reported Additional Past Surgical History / Comment(s): 2008 normal heart cath, EG D/colonoscopy, R lower eyelid sx, R cataract removal, R foot bunionectomy. Past Anesthesia/Blood Transfusion Reactions: No Reported Reaction Past Psychological History: No Psychological Hx Reported Smoking Status: Current some day smoker Past Alcohol Use History: None Reported Past Drug Use History: None Reported - Past Family History Mother Family Medical History: Diabetes Mellitus Additional Family Medical History / Comment(s): Mother haad heart problems. Father History Unknown: Yes Additional Family Medical History / Comment(s): Pt does not know his father's health hx. General Exam Limitations: no limitations General appearance: alert, in no apparent distress Head exam: Present: atraumatic, normocephalic, normal inspection Eye exam: Present: normal appearance, PERRL, EOMI. Absent: scleral icterus, conjunctival injection, periorbital swelling ENT exam: Present: normal exam, mucous membranes moist Neck exam: Present: normal inspection. Absent: tenderness, meningismus, lymphadenopathy Respiratory exam: Present: normal lung sounds bilaterally, chest wall tenderness (Positive left lateral and rib tenderness with possible crepitus), decreased breath sounds. Absent: respiratory distress, wheezes, rales, rhonchi, stridor, accessory muscle use, prolonged expiratory Cardiovascular Exam: Present: regular rate, normal rhythm, normal heart sounds. Absent: systolic murmur, diastolic murmur, rubs, gallop, clicks GI/Abdominal exam: Present: soft, normal bowel sounds. Absent: distended, tenderness, guarding, rebound, rigid Extremities exam: Present: normal inspection, full ROM, normal capillary refill, pedal edema (Positive BLE pitting edema), other (BLE distal neurovascular and motor function intact. Dorsalis pedis pulse +1 bilaterally.). Absent: te nderness, joint swelling, calf tenderness Back exam: Present: normal inspection, vertebral tenderness (Positive cervical spine tenderness without obvious crepitus or step-off. Positive T8/T9 tenderness without obvious crepitus or step-off.) Neurological exam: Present: alert, oriented X3, CN II-XII intact Psychiatric exam: Present: normal affect, normal mood Skin exam: Present: warm, dry, intact, normal color. Absent: rash Course Vital Signs 12/30/24 12/30/24 12/30/24 18:49 20:43 22:19 Temperature 98.2 F Pulse Rate 67 67 65 Respiratory 20 18 18 Rate Blood Pressure 188/81 140/79 157/90 O2 Sat by Pulse 98 95 98 Oximetry Medical Decision Making - Medical Decision Making Was pt. sent in by a medical professional or institution (, PA, LANDSCAPE MANAGEMENT TECHNICIAN, urgent care, hospital, or [facility]...) When possible be specific @ -[No] Did you speak to anyone other than the patient for history (EMS, parent, family, police, friend...)? What history was obtained from this source @ -[No] Did you review nursing and triage notes (agree or disagree)? Why? @ -[I reviewed and agree with nursing and triage notes] Were old charts reviewed (outside hosp., previous admission, EMS record, old EKG, old radiological studies, urgent care reports/EKG's, [facility] records)? Report findings @ -[No old charts were reviewed] Differential Diagnosis (chest pain, altered mental status, abdominal pain women, abdominal pain men, vaginal bleeding, weakness, fever, dyspnea, syncope, headache, dizziness, GI bleed, back pain, seizure, CVA, palpatations, mental health, musculoskeletal)? @ -Differential Musculoskeletal Muscular strain, contusion, ligament sprain, fracture, arthritis, septic ar thritis, bursitis, cellulitis, muscle spasm, nerve compression, DVT, arterial occlusion, herpes zoster, electrolyte abnormality, tumor.... This is not meant to be in all inclusive list EKG interpreted by me (3pts min.). @ -Sinus rhythm with left anterior fascicular block, ST elevation in lead V2, ST depression in lead II, III and T wave inversions in lead III and aVF. Ventricular rate 60 bpm, CLAIRE 183 ms, QRS 117 ms, QTc 397 ms. X-rays interpreted by me (1pt min.). @ -[None done] CT interpreted by me (1pt min.). @ -[None done] U/S interpreted by me (1pt. min.). @ -[None done] What testing was considered but not performed or refused? (CT, X-rays, U/S, labs)? Why? @ -[None] What meds were considered but not given or refused? Why? @ -[None] Did you discuss the management of the patient with other professionals (professionals i.e. , PA, LANDSCAPE MANAGEMENT TECHNICIAN, lab, RT, psych nurse, social services analyst, equipment washer, teacher, loan officer, bilingual case manager)? Give summary @ -[No] Was smoking cessation discussed for >3mins.? @ -[No] Was critical care preformed (if so, how long)? @ -[No] Were there social determinants of health that impacted care today? How? (Homelessness, low income, unemployed, alcoholism, drug addiction, transportation, low edu. Level, literacy, decrease access to med. care, shelter, rehab)? @ -[No] Was there de-escalation of care discussed even if they declined (Discuss DNR or withdrawal of care, Hospice)? DNR status @ -[No] What co-morbidities impacted this encounter? (DM, HTN, Smoking, COPD, CAD, Cancer, CVA, ARF, Chemo, Hep., AIDS, mental health diagnosis, sleep apnea, morbid obesity)? @ -[None] Was patient admitted / discharged? Hospital course, mention meds given and route, prescriptions, significant lab abnormalities, going to OR and other pertinent info. @ -[hospital course] Undiagnosed new problem with uncertain prognosis? @ -[No] Drug Therapy requiring intensive monitoring for toxicity (Heparin, Nitro, Insulin, Cardizem)? @ -[No] Were any procedures done? @ -[No] Diagnosis/symptom? @ -[default] Acute, or Chronic, or Acute on Chronic? @ -Acute Uncomplicated (without systemic symptoms) or Complicated (systemic symptoms)? @ -Complicated Side effects of treatment? @ -[No] Exacerbation, Progression, or Severe Exacerbation? @ -[No] Poses a threat to life or bodily function? How? (Chest pain, [place], [place], pneumonia, PE, COPD, DKA, ARF, appy, cholecystitis, CVA, Diverticulitis, Homicidal, Suicidal, threat to staff... and all critical care pts) @ -[No] - Lab Data Result diagrams: 12/30/24 19:31 12/30/24 19:31 Lab Results 12/30/24 12/30/24 12/30/24 Range/Units 19:31 19:31 19:31 WBC 6.41 (4.50-10.00) 10*3/uL RBC 4.56 (4.40-5.60) 10*6/uL Hgb 15.3 (13.0-17.0) g/dL Hct 42.1 (39.6-50.0) % MCV 92.3 (80.0-97.0) fL MCH 33.6 H (27.0-32.0) pg MCHC 36.3 (32.0-37.0) g/dL Plt Count 196 (140-440) 10*3/uL MPV 10.1 (9.5-12.2) fL Immature Gran % (Auto) 0.3 % Neutrophils % 65.5 % Lymphocytes % 21.4 % Monocytes % 8.6 % Eosinophils % 3.6 % Basophils % 0.6 % Immature Gran # 0.02 (0.00-0.04) 10*3/uL Neutrophils # 4.20 (1.80-7.70) 10*3/uL Lymphocytes # 1.37 (0.90-5.00) 10*3/uL Monocytes # 0.55 (0.20-1.00) 10*3/uL Eosinophils # 0.23 (0.04-0.35) 10*3/uL Basophils # 0.04 (0.00-0.10) 10*3/uL PT 36.5 H (10.0-12.5) sec INR 3.7 H (<1.2) APTT 38.7 H (22.0-30.0) sec Sodium 137 (137-145) mmol/L Potassium 4.4 (3.5-5.1) mmol/L Chloride 105 (98-107) mmol/L Carbon Dioxide 24 (22-30) mmol/L Anion Gap 8 mmol/L BUN 19 (9-20) mg/dL Creatinine 0.90 (0.66-1.25) mg/dL Est GFR (CKD-EPI)AfAm >90 (>60 ml/min/1.73 sqM) Est GFR (CKD-EPI)NonAf 84 (>60 ml/min/1.73 sqM) Glucose 315 H (74-99) mg/dL Calcium 10.0 (8.4-10.2) mg/dL Magnesium 1.0 L (1.6-2.3) mg/dL Total Bilirubin 0.6 (0.2-1.3) mg/dL AST 23 (17-59) U/L ALT 19 (4-49) U/L Alkaline Phosphatase 77 (38-126) U/L Troponin I (0.000-0.034) ng/mL Total Protein 6.3 (6.3-8.2) g/dL Albumin 3.9 (3.5-5.0) g/dL 12/30/24 Range/Units 19:31 WBC (4.50-10.00) 10*3/uL RBC (4.40-5.60) 10*6/uL Hgb (13.0-17.0) g/dL Hct (39.6-50.0) % MCV (80.0-97.0) fL MCH (27.0-32.0) pg MCHC (32.0-37.0) g/dL Plt Count (140-440) 10*3/uL MPV (9.5-12.2) fL Immature Gran % (Auto) % Neutrophils % % Lymphocytes % % Monocytes % % Eosinophils % % Basophils % % Immature Gran # (0.00-0.04) 10*3/uL Neutrophils # (1.80-7.70) 10*3/uL Lymphocytes # (0.90-5.00) 10*3/uL Monocytes # (0.20-1.00) 10*3/uL Eosinophils # (0.04-0.35) 10*3/uL Basophils # (0.00-0.10) 10*3/uL PT (10.0-12.5) sec INR (<1.2) APTT (22.0-30.0) sec Sodium (137-145) mmol/L Potassium (3.5-5.1) mmol/L Chloride (98-107) mmol/L Carbon Dioxide (22-30) mmol/L Anion Gap mmol/L BUN (9-20) mg/dL Creatinine (0.66-1.25) mg/dL Est GFR (CKD-EPI)AfAm (>60 ml/min/1.73 sqM) Est GFR (CKD-EPI)NonAf (>60 ml/min/1.73 sqM) Glucose (74-99) mg/dL Calcium (8.4-10.2) mg/dL Magnesium (1.6-2.3) mg/dL Total Bilirubin (0.2-1.3) mg/dL AST (17-59) U/L ALT (4-49) U/L Alkaline Phosphatase (38-126) U/L Troponin I <0.012 (0.000-0.034) ng/mL Total Protein (6.3-8.2) g/dL Albumin (3.5-5.0) g/dL Disposition Clinical Impression: Fall, Left rib fracture, Hyperglycemia, Bilateral lower extremity edema Disposition: HOME SELF-CARE Condition: Good Instructions (If sedation given, give patient instructions): Rib Fracture (ED), Fall Prevention for Older Adults (ED) Additional Instructions: Follow-up with PCP in the next 24-48 hours regarding rib fracture and leg swelling. Is patient prescribed a controlled substance at d/c from ED?: No Referrals: Andrew Walker MD [Primary Care Provider] - 1-2 days Time of Disposition: 21:28
[2024-12-30 20:44] VITALS: RESP 18
[2024-12-30] MEDS: HYDROmorphone 0.5 MG/0.5 ML SYRINGE IVP STA ×2 (20:49→21:23)
[2024-12-30] MEDS: INSULIN LISPRO (HumaLOG) 100 UNIT/ML 10 mL VL SQ ONE (21:22)
[2024-12-30] MEDS: SODIUM CHLORIDE 0.9% 500 ML 500 ML IV STA (21:22)
--- NOTE | 2024-12-30 21:22 | CT ---
EXAMINATION TYPE: CT brain cspine wo con DATE OF EXAM: 12/30/2024 9:07 PM COMPARISON: Previous CT study 07/25/2020. CLINICAL INDICATION: Male, 74 years old with history of pain; Fall 2 days ago. TECHNIQUE: Brain: Multiple axial CT images of the brain were obtained without IV contrast. Cspine: Axial CT images from the skull base to the inferior aspect of T2 we obtained without intraven ous contrast. Coronal and sagittal reformatted images were also reviewed. . CT DLP: 1516.5 mGycm, Automated exposure control for dose reduction was used. FINDINGS: Brain: Extra-axial spaces: No abnormal extra-axial fluid collections. Ventricular system: Redemonstration asymmetric prominence of the right ventricle. There is generalize d cerebral volume loss and prominence of the sulci. Cerebral parenchyma: No acute intraparenchymal hemorrhage or mass effect. The nick-white junction is well differentiated. Scattered hypoattenuating areas are seen within the white matter. Cerebellum: Unremarkable. Mass effect: No evidence of midline shift. Intracranial vasculature: unremarkable Soft tissues: Normal. Calvarium/osseous structures: No depressed skull fracture. Paranasal sinuses and mastoid air cells: Clear. Visualized orbits: Orbital contents are intact. Cervical spine: Fracture: None. Osseous structures: Multilevel intervertebral disc space loss and evidence of anterior ossified forma tion. Vertebral alignment: Within normal limits. Spinal canal/Neural Foramina: Multilevel facet arthropathy and uncovertebral hypertrophy and comminut ion with posterior disc osteophyte complex these cause varying degrees of neural foraminal narrowing spinal canal stenosis. Evaluation of the spinal canal is limited due to streak artifact. Mild grade 1 anterolisthesis of C7 on T1. Neck soft tissues: Prevertebral soft tissues are within normal limits. Other: The airway is patent. The lung apices are clear. IMPRESSION: 1. No acute intracranial process. 2. No acute fracture or traumatic subluxation of the cervical spine. [facility], , 12/30/2024 9:19 PM
[2024-12-30] MEDS: ACET/COD 300 MG/30 MG STARTER PACK 6 TAB BTL PO STA (22:08)
[2024-12-30] MEDS: MAGNESIUM OXIDE 400 MG TAB PO STA ×3 (22:08)
[2024-12-30 22:21] VITALS: BP 157/90; PULSE 65
== END 2024-12-30 22:21 | disposition home or self-care (01) ==
LOC: EC 18:48
DX: S22.32XA Fracture of one rib, left side, initial encounter for closed fracture (principal); R60.0 Localized edema; F17.200 Nicotine dependence, unspecified, uncomplicated; Z88.8 Allergy status to other drugs, medicaments and biological substances; W01.0XXA Fall on same level from slipping, tripping and stumbling without subsequent striking against object, initial encounter; Y92.009 Unspecified place in unspecified non-institutional (private) residence as the place of occurrence of the external cause
CPT/HCPCS: 36415; 93005; 80053; 83735; 84484; 85025; 85610; 85730; 71110; 71046; 72125; 70450; 99284; 96374; 96376; 96361; J1171